=== PATIENT | female | born 1990 | race Caucasian/White ===

== ENCOUNTER 2016-07-03 09:08 | Inpatient (IN) | payer OTHER ==
--- NOTE | 2016-07-03 09:30 | ED ---
General Adult HPI - General Chief complaint: Psychiatric Symptoms Stated complaint: Mental Health Time Seen by Provider: 07/03/16 09:23 Source: patient, RN notes reviewed Mode of arrival: ambulatory Limitations: no limitations - History of Present Illness Initial comments: Patient is a 25-year-old female with significant past medical history for depression, who presents emergency room today with chief complaint of feeling increased depression not when he got bent. 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 Patient also admits that she's began having thoughts of hurting herself and possible suicide. She states she was thinking of who her son should go to live with if she was no longer here. She does admit that her medication was changed proximal year ago. She states she feels like it's been a steady decline on this medication. She denies any other complaints or symptoms currently. Patient denies any recent fever, chills, shortness of breath, chest pain, back pain, abdominal pain, nausea or vomiting, numbness or tingling, dysuria or hematuria, constipation or diarrhea, headaches or visual changes, or any other complaints. - Related Data Home Medications Medication Instructions Recorded Confirmed Hydrochlorothiazide [Hydrodiuril] 12.5 mg PO HS 06/28/14 07/03/16 Loratadine [Claritin] 10 mg PO HS 06/28/14 07/03/16 Azurette 1 tab PO HS 10/20/14 07/03/16 Sertraline [Zoloft] 50 mg PO HS 01/20/15 07/03/16 Acyclovir [Zovirax] 800 mg PO HS 02/21/15 07/03/16 Multivitamins, Thera [Multivitamin] 1 tab PO HS 03/31/15 07/03/16 Omeprazole [PriLOSEC] 20 mg PO HS 07/03/16 07/03/16 Previous Rx's Medication Instructions Recorded Ondansetron Odt [Zofran ODT] 4 mg PO Q8HR PRN #20 tab 03/01/15 Allergies Allergy/AdvReac Type Severity Reaction Status Date / Time diphenhydramine HCl Allergy anxiety Verified 07/03/16 10:43 [From Benadryl] cats Allergy Unknown Uncoded 07/03/16 09:16 environmental Allergy Unknown Uncoded 07/03/16 09:16 Review of Systems ROS Statement: Those systems with pertinent positive or pertinent negative responses have been documented in the HPI. ROS Other: All systems not noted in ROS Statement are negative. Past Medical History Past Medical History: Asthma, Hyperlipidemia, Hypertension Additional Past Medical History / Comment(s): pancreatitis History of Any Multi-Drug Resistant Organisms: None Reported Past Surgical History: Adenoidectomy, Bariatric Surgery, Section, Cholecystectomy Additional Past Surgical History / Comment(s): left ovary removed, sleeve gastrectomy 02/28/15 Past Psychological History: Anxiety, Depression Smoking Status: Former smoker Past Alcohol Use History: Occasional Past Drug Use History: None Reported General Exam - General Exam Comments Initial Comments: General: The patient is awake and alert, in no distress, and does not appear acutely ill. Eye: Pupils are equal, round and reactive to light, extra-ocular movements are intact. No nystagmus. There is normal conjunctiva bilaterally. No signs of icterus. Ears, nose, mouth and throat: There are moist mucous membranes and no oral lesions. Neck: The neck is supple, there is no tenderness or JVD. Cardiovascular: There is a regular rate and rhythm. No murmur, rub or gallop is appreciated. Respiratory: Lungs are clear to auscultation, respirations are non-labored, breath sounds are equal. No wheezes, stridor, rales, or rhonchi. Musculoskeletal: Normal ROM, no tenderness. Strength 5/5. Sensation intact. Pulses equal bilaterally 2+. Neurological: A&O x 3. CN II-XII intact, There are no obvious motor or sensory deficits. Coordination appears grossly intact. Speech is normal. Skin: Skin is warm and dry and no rashes or lesions are noted. Psychiatric: Cooperative. Depressed affect. Limitations: no limitations Course Vital Signs 07/03/16 09:10 Temperature 98.3 F Pulse Rate 70 Respiratory 14 Rate Blood Pressure 142/83 O2 Sat by Pulse 99 Oximetry Medical Decision Making - Medical Decision Making Patient seen here in the emergency room by [facility] and they've recommended admission. - Lab Data Lab Results 07/03/16 Range/Units 09:40 Urine Opiates Screen Not Detected (NotDetected) Ur Oxycodone Screen Not Detected (NotDetected) Urine Methadone Screen Not Detected (NotDetected) Ur Propoxyphene Screen Not Detected (NotDetected) Ur Barbiturates Screen Not Detected (NotDetected) U Tricyclic Antidepress Not Detected (NotDetected) Ur Phencyclidine Scrn Not Detected (NotDetected) Ur Amphetamines Screen Not Detected (NotDetected) U Methamphetamines Scrn Not Detected (NotDetected) U Benzodiazepines Scrn Detected H (NotDetected) Urine Cocaine Screen Not Detected (NotDetected) U Marijuana (THC) Screen Not Detected (NotDetected) Disposition Clinical Impression: Suicidal ideation Disposition: TRANSFER TO PSYCH HOSP/UNIT
[2016-07-03] MEDS ORDERED: MAGNESIUM HYDROXIDE 2,400 MG/10 ML CUP PO PRN (12:19)
[2016-07-03] MEDS ORDERED: MAG HYDROX/AL HYDROX/SIMETH 30 ML CUP PO PRN (12:19)
[2016-07-03 15:08] VITALS: BMI 32.8
[2016-07-03] MEDS: ACETAMINOPHEN TAB 325 MG TAB PO PRN (18:43)
[2016-07-03] MEDS: PANTOPRAZOLE 40 MG TABLET PO SCH (20:47)
[2016-07-03] MEDS: HYDROCHLOROTHIAZIDE 12.5 MG CAP PO SCH (20:47)
[2016-07-03] MEDS: MULTIVITAMINS, THERA 1 EACH TAB PO SCH (20:47)
[2016-07-03] MEDS: LORATADINE 10 MG TAB PO SCH (22:04)
[2016-07-04] MEDS: ACETAMINOPHEN TAB 325 MG TAB PO PRN ×2 (00:09→16:28)
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
[2016-07-04 10:06] LABS: Basophils % (A) 1 %; CHCM 32.6; Eosinophils # (A) 0.2 k/uL (0-0.7); Eosinophils % (A) 4 %; HCT 35.2 % (34.0-46.0); HDW 2.78; HGB 11.5 gm/dL (11.4-16.0); Luc # (Auto) 0.08; Luc % (Auto) 2; Lymphocytes # (A) 1.6 k/uL (1.0-4.8); Lymphocytes % (A) 46 %; MCH 29.3 pg (25.0-35.0); MCHC 32.7 g/dL (31.0-37.0); MCV 89.5 fL (80.0-100.0); Mean Platelet Volume 6.6; Monocytes # (A) 0.2 k/uL (0-1.0); Monocytes % (A) 6 %; Neutrophils # (A) 1.4 k/uL (1.3-7.7); Neutrophils % (A) 40 %; RBC 3.93 m/uL (3.80-5.40); RDW 13.6 % (11.5-15.5); WBC 3.4 k/uL (3.8-10.6); WBC (Perox) 3.54
--- NOTE | 2016-07-04 10:41 | CONS ---
DATE OF CONSULTATION: CHIEF COMPLAINT: Depression. HISTORY OF PRESENT ILLNESS: Ms. Agustin is a 25-year-old female with a known history of depression since age 13, and history of gastric sleeve surgery and alcohol abuse, admitted to the hospital with chief complaints of feeling increased depression. Reason for consultation, medical management of depression, alcohol abuse and other medical issues. Apparently, the patient has been very depressed that her son is going to get cut in Social Security as the patient is working full-time at this time. She began thoughts of having hurting herself and possible suicide. The patient does not have any plan. Patient has been taking Zoloft for several years and she says that this does not work anymore. Patient also had gastric sleeve surgery about a year ago and she is also concerned that she did not lose enough weight as she thought prior to that. Otherwise, patient denied any complaints of chest pain or short of breath. No recent illnesses. The patient did have nausea, no episode of emesis this morning. Otherwise, denied any complaints of recent illnesses or sick contacts at home. No recent travel. REVIEW OF SYSTEMS: CONSTITUTIONAL: No fever. No chills. No weakness. RESPIRATORY: No cough or sputum production. No short of breath. CARDIOVASCULAR: No chest pain or short of breath. No leg swelling. ABDOMEN: Patient does have nausea and one episode of vomiting. No abdominal pain. No diarrhea. GENITOURINARY: No dysuria. No hematuria. ENDOCRINE: Negative. PSYCHIATRIC: Depressed. SKIN: Negative. All other 14-point review of systems negative except as above. PAST MEDICAL HISTORY: 1. Hypertension. 2. Depression. 3. Hyperlipidemia. 4. History of asthma. 5. Previous history of smoking, quit him in . 6. Alcohol abuse on a daily basis/every other night. 7. History of gastric surgery. 8. History of pancreatitis. PAST SURGICAL HISTORY: Adenoidectomy, gastric sleeve surgery, section, cholecystectomy. PSYCHOSOCIAL HISTORY: Anxiety and depression. SOCIAL HISTORY: The patient is a former smoker; quit smoking in 2009. Patient has been drinking every other night recently lasting about the night before. Denied any marijuana. Denied any drugs or IVDU. Allergies include: BENADRYL, CATS and ENVIRONMENTAL. Home Medication: 1. ( ) . 2. Omeprazole. 3. Multivitamin. 4. Acyclovir. 5. Zoloft. 6. Azurette. 7. Loratadine. 8. Hydrochlorothiazide. PHYSICAL EXAMINATION: A 25-year-old female lying in the bed. Awake, alert and oriented x3. Appears to be in no apparent distress. VITALS: Blood pressure is 132/75, pulse is 74, respiration 20, temperature afebrile, pulse ox 94% on room air. HEENT: Atraumatic, normocephalic. Neck is supple. No JVD. CVS EXAM: S1, S2 heard. No murmurs, no gallop. LUNGS: Bilateral air entry is present. No wheeze, no crackles. ABDOMEN: Soft, obese. Bowel sounds are present. No palpable organomegaly. SYSTEM ADMIN: Awake, alert, oriented x3. No focal deficits. EXTREMITIES: No edema. Pulses palpable bilaterally. No clubbing or cyanosis. PSYCHIATRIC: Cooperative, seems depressed with teary eyes at times. LABORATORY DATA: Not available at this time. UDS is positive for benzodiazepines. IMPRESSION: 1. Depression with suicidal ideation. 2. Asthma, stable at this time. Continue with albuterol breathing treatments p.r.n. 3. Hypertension. Blood pressure is controlled now. Continue with hydrochlorothiazide. 4. Nausea and vomiting, possible alcoholic gastritis, improved at this time. Continue to monitor closely. 5. Monitor for alcohol withdrawal symptoms. 6. Anxiety and depression history. 7. History of pancreatitis. 8. Hyperlipidemia. 9. Previous history of gastric sleeve surgery. 10. Obesity with body mass index of 32.9. DISCUSSION AND PLAN: The patient will be continued on home medications. Continue the Protonix and multivitamins and Thiamine will be added. Continue with hydrochlorothiazide for blood pressure. Continue with the antidepressant medications as per psychiatry recommendations. Will continue the current management. DVT prophylaxis. Patient is currently ambulating. Will continue the current management and further recommendations based on the clinical course.
[2016-07-04 10:48] LABS: ALT 18 U/L (9-52); AST 15 U/L (14-36); Alkaline Phosphatase 36 U/L (38-126); Anion Gap 9 mmol/L; Blood Urea Nitrogen 9 mg/dL (7-17); Calcium 9.2 mg/dL (8.4-10.2); Carbon Dioxide 26 mmol/L (22-30); Chloride 104 mmol/L (98-107); Glucose 97 mg/dL (74-99); Non-African American GFR(MDRD) >60 (>60 ml/min/1.73 sqM); Potassium 3.7 mmol/L (3.5-5.1); Sodium 139 mmol/L (137-145); Total Bilirubin 0.7 mg/dL (0.2-1.3); Total Protein 6.9 g/dL (6.3-8.2)
[2016-07-04] MEDS: THIAMINE 100 MG TAB PO SCH (13:02)
[2016-07-04] MEDS: ACYCLOVIR 800 MG TAB PO SCH (20:24)
[2016-07-04] MEDS: LORATADINE 10 MG TAB PO SCH (20:25)
[2016-07-04] MEDS: MULTIVITAMINS, THERA 1 EACH TAB PO SCH (20:25)
[2016-07-04] MEDS: PANTOPRAZOLE 40 MG TABLET PO SCH (20:25)
[2016-07-04] MEDS: MIRTAZAPINE 15 MG TAB PO SCH (20:25)
[2016-07-04] MEDS: HYDROCHLOROTHIAZIDE 12.5 MG CAP PO SCH (20:25)
[2016-07-05] MEDS: ACETAMINOPHEN TAB 325 MG TAB PO PRN (09:55)
[2016-07-05] MEDS: THIAMINE 100 MG TAB PO SCH (12:59)
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
[2016-07-05] MEDS: LORATADINE 10 MG TAB PO SCH (20:49)
[2016-07-05] MEDS: PANTOPRAZOLE 40 MG TABLET PO SCH (20:49)
[2016-07-05] MEDS: ACYCLOVIR 800 MG TAB PO SCH (20:49)
[2016-07-05] MEDS: HYDROCHLOROTHIAZIDE 12.5 MG CAP PO SCH (20:50)
[2016-07-05] MEDS: MIRTAZAPINE 15 MG TAB PO SCH (20:50)
[2016-07-05] MEDS: MULTIVITAMINS, THERA 1 EACH TAB PO SCH (20:50)
[2016-07-05] MEDS: LORazepam 1 MG TAB PO PRN (22:09)
[2016-07-06] MEDS: THIAMINE 100 MG TAB PO SCH (13:04)
--- NOTE | 2016-07-06 14:13 | P.PN ---
Progress Note - Text CLINICAL PROBLEMS: Major depressive disorder recurrent severe without psychotic features 24 HOUR EVENTS: She attended by most therapeutic groups and activities. She posed no management problem and displayed no episodes of behavioral dyscontrol or self-harm. She does not socialize with staff or peers outside of groups. She spends her free time in her room. EXAMINATION: She presented as a casually groomed moderately obese 25-year-old single female. She was pleasant on approach and made eye contact. She had a depressed and depressed facial expression. She cried intermittently during interview. She reported less sedation this morning and agreed to continue with the titration of mirtazapine. She showed psychomotor retardation and no abnormal involuntary movements. Her speech was spontaneous with decreased rate , rhythm and volume. Her affect was depressed and not reactive. She expressed her distress over her situation where her family does like her girlfriend, her girlfriend complains to her that her family wants and a breakup and her desire to continue their relationship. She also talked about her weight and self-image. She flatly stated that she hates herself and is disgusted by her appearance. She does not perceive her 90 pound weight loss as a success. She wishes an ideal weight of "150-160 pounds" where she is slender and athletic. Her current weight is a same as it was when she was in her teens. She described thoughts of suicide but denied intent or plan. She continues to feel hopeless, helpless and worthless. She ruminated about her relationship problems. She did not express ideas reference, paranoid ideation or delusional thinking. Her thinking was coherent, organized and goal directed. She denied hallucinations and did not appear to be responding to internal stimuli. PERTINENT DATA: She slept 4 hours last night ASSESSMENT: She continues to have signs and symptoms of depression. The morning sedation from mirtazapine is improved and she consented to continue treatment with an increased dose. She has ongoing issues with her family and her self-image. PLAN: Continue inpatient hospitalization due to severe depression and suicidal ideation. Continue suicide precautions with 15 minute checks. Increase mirtazapine 30 mg at bedtime and continue to titrate according to clinical response and tolerance. Consider augmenting the antidepressant with a second generation antipsychotic.. Encourage participation in therapeutic groups and activities. Evaluate clinical status response to treatment daily basis.
[2016-07-06] MEDS: LORATADINE 10 MG TAB PO SCH (21:26)
[2016-07-06] MEDS: MULTIVITAMINS, THERA 1 EACH TAB PO SCH (21:26)
[2016-07-06] MEDS: HYDROCHLOROTHIAZIDE 12.5 MG CAP PO SCH (21:26)
[2016-07-06] MEDS: ACYCLOVIR 800 MG TAB PO SCH (21:26)
[2016-07-06] MEDS: MIRTAZAPINE 15 MG TAB PO SCH (21:26)
[2016-07-06] MEDS: PANTOPRAZOLE 40 MG TABLET PO SCH (21:26)
[2016-07-06] MEDS: LORazepam 1 MG TAB PO PRN (22:45)
[2016-07-07] MEDS: THIAMINE 100 MG TAB PO SCH (12:54)
--- NOTE | 2016-07-07 16:09 | P.PN ---
Progress Note - Text SUBJECTIVE: Reviewed the medical record and interviewed Mr. Darby. She is a 25-year-old single female presented with depression and suicidal ideation. She complains of continued feelings depression and difficulty falling asleep. She also complained that she feels "neglected" and "very angry ... Like I want to punch something." When asked her why she may feel angry she replied that her mother did not call her and when she did speak to her mother she was angry and hung up. She is also unable to talk with her girlfriend yesterday. She wished to be discharged. We discussed treatment options and agreed to a trial of Abilify 5 mg in addition to the current dose of Remeron. She denied side effects to the increased dose of Remeron. OBJECTIVE: She presented as a disheveled appearing 25-year-old obese female who was pleasant on approach. She made limited eye contact but appeared to attend to interview. She had a depressed facial expression. She showed psychomotor retardation but no abnormal involuntary movements. Speech was not spontaneous and had decreased rate, rhythm and volume. Her affect was depressed and not reactive. She denied suicidal ideation or wishes. She expresses feelings of hopelessness and helplessness. She did not express ideas reference, paranoid ideation or delusions. Her thinking was abstract and associations were coherent and logical. She denied hallucinations and did not appear to be responding to internal stimuli. ASSESSMENT: She rates depressed but has no suicidal ideation. Overall she appears moderately mentally ill and minimally improved from admission. PLAN: Continue inpatient hospitalization. Continue suicide precautions with 15 minute checks. Continue Remeron 30 mg at bedtime and titrated according to clinical response and tolerance. Begin Abilify 5 mg daily for augmentation of Remeron. Family meeting scheduled for 07/08/2016. Encourage participation in therapeutic groups and activities. Evaluate clinical status response to treatment and treatment basis.
[2016-07-07] MEDS: ARIPiprazole 5 MG TAB PO SCH (16:16)
[2016-07-07] MEDS: MIRTAZAPINE 15 MG TAB PO SCH (20:28)
[2016-07-07] MEDS: ACYCLOVIR 800 MG TAB PO SCH (20:28)
[2016-07-07] MEDS: LORATADINE 10 MG TAB PO SCH (20:28)
[2016-07-07] MEDS: HYDROCHLOROTHIAZIDE 12.5 MG CAP PO SCH (20:28)
[2016-07-07] MEDS: PANTOPRAZOLE 40 MG TABLET PO SCH (20:28)
[2016-07-07] MEDS: MULTIVITAMINS, THERA 1 EACH TAB PO SCH (20:28)
[2016-07-07] MEDS: LORazepam 1 MG TAB PO PRN (20:30)
[2016-07-08] MEDS: AZURETTE PO SCH ×2 (00:18→00:19)
[2016-07-08] MEDS: ARIPiprazole 5 MG TAB PO SCH (09:52)
--- NOTE | 2016-07-08 12:01 | P.PN ---
Progress Note - Text SUBJECTIVE: I reviewed the medical record and interviewed Mr. Darby. She is a 25-year-old single female presented with depression and suicidal ideation. She stated that she feels much better today. She does not feel depressed, angry or anxious. She denied having thoughts of or suicide. She was unable to explain the reason why she felt so angry yesterday. She wishes to be discharged after the family meeting. Although she has her intake appointment at [facility] on July 18 she believes that she can reschedule for an earlier date. She denied side effects to Abilify. OBJECTIVE: She presented as a neatly but casually dressed 25-year-old female who was pleasant on approach. She made eye contact and attended to interview. She had a bright facial expression. She showed no abnormality of psychomotor activity and no abnormal involuntary movements. Her speech was spontaneous with normal rate, rhythm and volume. Her affect was blunted but bright and reactive. She denied suicidal ideation or wishes. She expresses feelings of hopelessness and helplessness. She did not express ideas reference, paranoid ideation or delusions. Her thinking was abstract and associations were coherent and logical. She denied hallucinations and did not appear to be responding to internal stimuli. ASSESSMENT: She appears much less depressed today than on prior encounters. Overall, she appears mildly mentally ill and very much improved from admission. PLAN: Continue Remeron 30 mg at bedtime and titrated according to clinical response and tolerance. Continue Abilify 5 mg daily for augmentation of Remeron. Consider discharge after the family meeting today. Encourage participation in therapeutic groups and activities. Evaluate clinical status response to treatment and treatment basis.
[2016-07-08] MEDS: THIAMINE 100 MG TAB PO SCH (12:09)
[2016-07-08] MEDS: LORazepam 1 MG TAB PO PRN ×2 (14:12→21:16)
[2016-07-08] MEDS ORDERED: AZURETTE PO SCH (21:00)
[2016-07-08] MEDS: MIRTAZAPINE 15 MG TAB PO SCH (21:13)
[2016-07-08] MEDS: MULTIVITAMINS, THERA 1 EACH TAB PO SCH (21:13)
[2016-07-08] MEDS: LORATADINE 10 MG TAB PO SCH (21:13)
[2016-07-08] MEDS: HYDROCHLOROTHIAZIDE 12.5 MG CAP PO SCH (21:13)
[2016-07-08] MEDS: ACYCLOVIR 800 MG TAB PO SCH (21:13)
[2016-07-08] MEDS: PANTOPRAZOLE 40 MG TABLET PO SCH (21:14)
[2016-07-09 06:09] VITALS: BP 104/64; PULSE 72; RESP 16; TEMP 98
[2016-07-09] MEDS: ARIPiprazole 5 MG TAB PO SCH (09:41)
[2016-07-09] MEDS: MULTIVITAMINS, THERA 1 EACH TAB PO SCH (12:39)
[2016-07-09] MEDS: THIAMINE 100 MG TAB PO SCH (12:40)
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
[2016-07-09] MEDS ORDERED: MIRTAZAPINE 45 MG TABLET PO SCH (21:00)
== END 2016-07-09 14:48 | disposition home or self-care (01) | DRG 885 ==
LOC: EC 09:08 → 3MHU 11:26
PROVIDERS: ADMIT Psychiatry & Neurology Psychiatry; ATTEND Psychiatry & Neurology Psychiatry
DX: F33.2 Major depressive disorder, recurrent severe without psychotic features (principal); R45.851 Suicidal ideations; I10 Essential (primary) hypertension; E78.5 Hyperlipidemia, unspecified; E66.9 Obesity, unspecified; F10.10 Alcohol abuse, uncomplicated; F41.9 Anxiety disorder, unspecified; J45.909 Unspecified asthma, uncomplicated; K21.9 Gastro-esophageal reflux disease without esophagitis; A60.00 Herpesviral infection of urogenital system, unspecified; K29.20 Alcoholic gastritis without bleeding; Z68.32 Body mass index [BMI] 32.0-32.9, adult; Z79.899 Other long term (current) drug therapy; Z87.891 Personal history of nicotine dependence; Z98.84 Bariatric surgery status; Z88.8 Allergy status to other drugs, medicaments and biological substances; Z59.9 Problem related to housing and economic circumstances, unspecified; Z81.8 Family history of other mental and behavioral disorders
CPT/HCPCS: 80053; 80306; 81025; 82075; 84443; 85025; 99285

== ENCOUNTER 2016-07-31 21:29 | Inpatient (IN) | payer OTHER ==
[2016-07-31] MEDS ORDERED: SODIUM CHLORIDE 0.9% 500 ML IV STA (21:38)
--- NOTE | 2016-07-31 21:40 | ED ---
Overdose HPI - General Stated Complaint: overdose Time Seen by Provider: 07/31/16 21:37 - History of Present Illness Initial Comments: Shouldn't is a 25-year-old woman who has long-standing history of depression and suicidal ideation. She presents tonight by EMS after having called 911 after taking an overdose of Seroquel. The patient states that her usual evening dose is 50 mg and tonight she took 550 mg. She also had been doing some cutting to the bilateral thigh area. The patient states that she had some worsening of her mood as was the anniversary of family members yesterday. Complaint: intentional overdose -: hour(s) Intent: suicide attempt How Overdose Was Discovered: called 911 - Related Data Home Medications Medication Instructions Recorded Confirmed Hydrochlorothiazide [Hydrodiuril] 12.5 mg PO DAILY 06/28/14 07/31/16 Azurette 1 tab PO DAILY 10/20/14 07/31/16 Acyclovir [Zovirax] 800 mg PO HS 02/21/15 07/31/16 Omeprazole [PriLOSEC] 20 mg PO DAILY 07/03/16 07/31/16 Mirtazapine [Remeron] 45 mg PO HS 07/31/16 07/31/16 QUEtiapine [SEROquel] 50 mg PO HS 07/31/16 07/31/16 Allergies Allergy/AdvReac Type Severity Reaction Status Date / Time cat dander Allergy Unknown Verified 07/31/16 23:01 diphenhydramine HCl Allergy anxiety Verified 07/03/16 14:59 [From Benadryl] environmental Allergy Unknown Uncoded 07/03/16 14:59 Review of Systems ROS Statement: Those systems with pertinent positive or pertinent negative responses have been documented in the HPI. ROS Other: All systems not noted in ROS Statement are negative. Constitutional: Denies: fever, chills Eyes: Denies: vision change Respiratory: Denies: cough, dyspnea Cardiovascular: Denies: chest pain, palpitations, syncope Gastrointestinal: Denies: abdominal pain, nausea, vomiting Genitourinary: Denies: dysuria, hematuria, abnormal menses Skin: Denies: rash Neurological: Denies: headache, weakness, numbness Psychiatric: Reports: anxiety, depression, suicidal thoughts. Denies: auditory hallucinations, visual hallucinations, homicidal thoughts Past Medical History Past Medical History: Asthma, Hyperlipidemia, Hypertension Additional Past Medical History / Comment(s): pancreatitis History of Any Multi-Drug Resistant Organisms: None Reported Past Surgical History: Adenoidectomy, Bariatric Surgery, Section, Cholecystectomy Additional Past Surgical History / Comment(s): left ovary removed, sleeve gastrectomy 02/28/15 Past Psychological History: Anxiety, Depression Smoking Status: Former smoker Past Alcohol Use History: Occasional Past Drug Use History: None Reported General Exam General appearance: alert, in no apparent distress, anxious, obese Head exam: Present: atraumatic, normocephalic Eye exam: Present: normal appearance. Absent: scleral icterus, conjunctival injection ENT exam: Present: normal oropharynx Respiratory exam: Present: normal lung sounds bilaterally. Absent: respiratory distress, wheezes, rales, rhonchi, stridor Cardiovascular Exam: Present: regular rate, normal rhythm, normal heart sounds. Absent: systolic murmur, diastolic murmur, rubs, gallop GI/Abdominal exam: Present: soft. Absent: distended, tenderness, guarding, rebound Extremities exam: Present: normal capillary refill Back exam: Present: normal inspection Neurological exam: Present: alert, oriented X3. Absent: motor sensory deficit Skin exam: Present: warm, dry, normal color, abrasion (There are multiple superficial lacerations and abrasions on of which penetrate the dermis, located on both legs, anterior aspect just proximal to the knees.). Absent: rash Course Vital Signs 07/31/16 07/31/16 07/31/16 21:34 22:10 23:46 Temperature 97.6 F Pulse Rate 101 H 97 100 Respiratory 18 18 18 Rate Blood Pressure 125/71 148/85 140/99 O2 Sat by Pulse 98 98 96 Oximetry Medical Decision Making - Lab Data Result diagrams: 07/31/16 21:36 07/31/16 21:36 Lab Results 07/31/16 07/31/16 07/31/16 Range/Units 21:36 21:36 21:36 WBC 4.8 (3.8-10.6) k/uL RBC 3.97 (3.80-5.40) m/uL Hgb 11.5 (11.4-16.0) gm/dL Hct 35.4 (34.0-46.0) % MCV 89.3 (80.0-100.0) fL MCH 29.1 (25.0-35.0) pg MCHC 32.6 (31.0-37.0) g/dL RDW 13.9 (11.5-15.5) % Plt Count 205 (150-450) k/uL Neutrophils % 53 % Lymphocytes % 38 % Monocytes % 4 % Eosinophils % 3 % Basophils % 1 % Neutrophils # 2.5 (1.3-7.7) k/uL Lymphocytes # 1.8 (1.0-4.8) k/uL Monocytes # 0.2 (0-1.0) k/uL Eosinophils # 0.1 (0-0.7) k/uL Basophils # 0.0 (0-0.2) k/uL Sodium 142 (137-145) mmol/L Potassium 3.9 (3.5-5.1) mmol/L Chloride 110 H (98-107) mmol/L Carbon Dioxide 22 (22-30) mmol/L Anion Gap 10 mmol/L BUN 15 (7-17) mg/dL Creatinine 0.70 (0.52-1.04) mg/dL Est GFR (MDRD) Af Amer >60 (>60 ml/min/1.73 sqM) Est GFR (MDRD) Non-Af >60 (>60 ml/min/1.73 sqM) Glucose 123 H (74-99) mg/dL Calcium 9.0 (8.4-10.2) mg/dL Total Bilirubin 0.3 (0.2-1.3) mg/dL AST 15 (14-36) U/L ALT 26 (9-52) U/L Alkaline Phosphatase 41 (38-126) U/L Total Protein 6.3 (6.3-8.2) g/dL Albumin 3.4 L (3.5-5.0) g/dL Urine HCG, Qual (Not Detectd) Salicylates <1.0 mg/dL Urine Opiates Screen Not Detected (NotDetected) Ur Oxycodone Screen Not Detected (NotDetected) Urine Methadone Screen Not Detected (NotDetected) Ur Propoxyphene Screen Not Detected (NotDetected) Acetaminophen <10.0 ug/mL Ur Barbiturates Screen Not Detected (NotDetected) U Tricyclic Antidepress Detected H (NotDetected) Ur Phencyclidine Scrn Not Detected (NotDetected) Ur Amphetamines Screen Not Detected (NotDetected) U Methamphetamines Scrn Not Detected (NotDetected) U Benzodiazepines Scrn Not Detected (NotDetected) Urine Cocaine Screen Not Detected (NotDetected) U Marijuana (THC) Screen Detected H (NotDetected) Serum Alcohol <10 mg/dL 07/31/16 Range/Units 21:36 WBC (3.8-10.6) k/uL RBC (3.80-5.40) m/uL Hgb (11.4-16.0) gm/dL Hct (34.0-46.0) % MCV (80.0-100.0) fL MCH (25.0-35.0) pg MCHC (31.0-37.0) g/dL RDW (11.5-15.5) % Plt Count (150-450) k/uL Neutrophils % % Lymphocytes % % Monocytes % % Eosinophils % % Basophils % % Neutrophils # (1.3-7.7) k/uL Lymphocytes # (1.0-4.8) k/uL Monocytes # (0-1.0) k/uL Eosinophils # (0-0.7) k/uL Basophils # (0-0.2) k/uL Sodium (137-145) mmol/L Potassium (3.5-5.1) mmol/L Chloride (98-107) mmol/L Carbon Dioxide (22-30) mmol/L Anion Gap mmol/L BUN (7-17) mg/dL Creatinine (0.52-1.04) mg/dL Est GFR (MDRD) Af Amer (>60 ml/min/1.73 sqM) Est GFR (MDRD) Non-Af (>60 ml/min/1.73 sqM) Glucose (74-99) mg/dL Calcium (8.4-10.2) mg/dL Total Bilirubin (0.2-1.3) mg/dL AST (14-36) U/L ALT (9-52) U/L Alkaline Phosphatase (38-126) U/L Total Protein (6.3-8.2) g/dL Albumin (3.5-5.0) g/dL Urine HCG, Qual Not Detected (Not Detectd) Salicylates mg/dL Urine Opiates Screen (NotDetected) Ur Oxycodone Screen (NotDetected) Urine Methadone Screen (NotDetected) Ur Propoxyphene Screen (NotDetected) Acetaminophen ug/mL Ur Barbiturates Screen (NotDetected) U Tricyclic Antidepress (NotDetected) Ur Phencyclidine Scrn (NotDetected) Ur Amphetamines Screen (NotDetected) U Methamphetamines Scrn (NotDetected) U Benzodiazepines Scrn (NotDetected) Urine Cocaine Screen (NotDetected) U Marijuana (THC) Screen (NotDetected) Serum Alcohol mg/dL - EKG Data -: EKG Interpreted by Ms EKG shows normal: sinus rhythm, axis (Normal), intervals (Normal), QRS complexes (Normal) Rate: tachycardia (Rate approximately 107 bpm) When compared to previous EKG there are: no significant change Interpretation: other (Q waves in leads 2, 3 and aVF consistent with possible old inferior infarct. EKG is similar to that from October 2014) Disposition Clinical Impression: Suicidal ideation, Mood disorder Disposition: ADMITTED IP TO THIS [facility] Condition: Fair
[2016-07-31] MEDS ORDERED: DIPH,PERTUS(ACELL)TETVAC-LF 0.5 ML VIAL IM ONE (22:08)
[2016-07-31 22:14] LABS: Basophils % (A) 1 %; CH 29.7; CHCM 33.4; Eosinophils # (A) 0.1 k/uL (0-0.7); Eosinophils % (A) 3 %; HCT 35.4 % (34.0-46.0); HGB 11.5 gm/dL (11.4-16.0); Luc # (Auto) 0.11; Luc % (Auto) 2; Lymphocytes # (A) 1.8 k/uL (1.0-4.8); Lymphocytes % (A) 38 %; MCH 29.1 pg (25.0-35.0); MCHC 32.6 g/dL (31.0-37.0); MCV 89.3 fL (80.0-100.0); Monocytes # (A) 0.2 k/uL (0-1.0); Monocytes % (A) 4 %; Neutrophils # (A) 2.5 k/uL (1.3-7.7); Neutrophils % (A) 53 %; RBC 3.97 m/uL (3.80-5.40); RDW 13.9 % (11.5-15.5); WBC 4.8 k/uL (3.8-10.6); WBC (Perox) 5.18
[2016-07-31 22:24] LABS: ALT 26 U/L (9-52); AST 15 U/L (14-36); Acetaminophen <10.0 ug/mL; Alcohol <10 mg/dL; Alkaline Phosphatase 41 U/L (38-126); Anion Gap 10 mmol/L; Blood Urea Nitrogen 15 mg/dL (7-17); Carbon Dioxide 22 mmol/L (22-30); Chloride 110 mmol/L (98-107); Glucose 123 mg/dL (74-99); Non-African American GFR(MDRD) >60 (>60 ml/min/1.73 sqM); Potassium 3.9 mmol/L (3.5-5.1); Salicylate <1.0 mg/dL; Sodium 142 mmol/L (137-145); Total Bilirubin 0.3 mg/dL (0.2-1.3); Total Protein 6.3 g/dL (6.3-8.2)
[2016-08-01] MEDS ORDERED: LORazepam 1 MG TAB PO STA (00:49)
[2016-08-01] MEDS ORDERED: ACETAMINOPHEN TAB 325 MG TAB PO PRN (02:10)
[2016-08-01] MEDS ORDERED: MAGNESIUM HYDROXIDE 2,400 MG/10 ML CUP PO PRN (02:10)
[2016-08-01] MEDS ORDERED: MAG HYDROX/AL HYDROX/SIMETH 30 ML CUP PO PRN (02:10)
[2016-08-01] MEDS ORDERED: HYDROCHLOROTHIAZIDE 12.5 MG CAP PO SCH (09:00)
[2016-08-01] MEDS: PANTOPRAZOLE 40 MG TABLET PO SCH (09:10)
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
[2016-08-01 12:40] VITALS: BMI 32.5
[2016-08-01] MEDS: ARIPiprazole 5 MG TAB PO SCH (14:57)
--- NOTE | 2016-08-01 16:40 | CONS ---
DATE OF CONSULTATION: Patient is a very pleasant 25-year-old female admitted to psychiatric floor for management of her psychiatric issues which is depression and suicidal ideation and suicide attempt. Patient denied any fever, chills. Patient denied any nausea, vomiting, abdominal pain. Patient is on hydrochlorothiazide, only takes for water retention which I discontinued. Patient is also on acyclovir without any active herpetic lesions. Patient is clinically doing well. REVIEW OF SYSTEMS: CONSTITUTIONAL: No fever, no malaise, no fatigue. HEENT: No recent visual problems or hearing problems. Denied any sore throat. CARDIOVASCULAR: No chest pain, orthopnea, PND, no palpitations, no syncope. PULMONARY: No shortness of breath, no cough, no hemoptysis. GASTROINTESTINAL: No diarrhea, no nausea, no vomiting, no abdominal pain. Normoactive bowel sounds. NEUROLOGICAL: No headaches, no weakness, no numbness. HEMATOLOGICAL: Denies any bleeding or petechiae. GENITOURINARY: Denies any burning micturition, frequency, or urgency. MUSCULOSKELETAL/RHEUMATOLOGICAL: Denies any joint pain, swelling, or any muscle pain. ENDOCRINE: Denies any polyuria or polydipsia. Psychiatric defer to the psychiatric services. The rest of the 14 point review of systems is negative. Past medical history significant for asthma in childhood. Patient does not have any recent exacerbation, hyperlipidemia, hypertension, history of pancreatitis in the past, adenoidectomy, bariatric surgery, section, cholecystectomy in the past. Depression. SOCIAL HISTORY: The patient used to be a former smoker. Occasional alcohol use. Denies any IV drug use or any recreational drug use. Home medications include: 1. Seroquel. 2. ( ). 3. Omeprazole. 4. Hydrochlorothiazide. 5. Acyclovir 800 mg bedtime. PHYSICAL EXAMINATION: VITAL SIGNS: Temperature 97.5, pulse of 96. Patient apparently was tachycardic earlier, probably because of anxiety and patient is not tachycardic when I evaluated the patient. GENERAL: The patient is alert and oriented x3, not in any acute distress. Well developed, well nourished. HEENT: Pupils are round and equally reacting to light. EOMI. No scleral icterus. No conjunctival pallor. Normocephalic, atraumatic. No pharyngeal erythema. No thyromegaly. CARDIOVASCULAR: S1 and S2 present. No murmurs, rubs, or gallops. PULMONARY: Chest is clear to auscultation, no wheezing or crackles. ABDOMEN: Soft, nontender, nondistended, normoactive bowel sounds. No palpable organomegaly. MUSCULOSKELETAL: No joint swelling or deformity. EXTREMITIES: No cyanosis, clubbing, or pedal edema. NEUROLOGICAL: Gross neurological examination did not reveal any focal deficits. SKIN: No rashes. Psychiatric exam deferred to psychiatric services. LABORATORY DATA: CBC, CMP: No significant abnormality was appreciated. ASSESSMENT AND PLAN: 1. Depression, management as per primary service. 2. Monitoring for hypertension. I do not believe patient is hypertensive at this point of time. Hydrochlorothiazide will be discontinued. Will recommend to monitor the blood pressures. 3. Gastroesophageal disease for which patient can continue Prilosec. 4. History of asthma without any acute exacerbation. Patient is not smoking anymore. No further intervention is necessary. If needed as we can use as needed Habitrol although patient is not wheezing at this point of time. 5. Marijuana use. Counseling was provided. Although the patient denied any recreational drug use to me. The patient denied any IV drug. Thank you for letting me participate in this patient's care. We will sign off at this point of time. Patient will need to follow with Dr. Gonzalez upon discharge in about a week.
[2016-08-01] MEDS: MIRTAZAPINE 45 MG TABLET PO SCH (20:53)
[2016-08-01] MEDS: AZURETTE PO SCH (20:53)
[2016-08-01] MEDS: ACYCLOVIR 800 MG TAB PO SCH (20:53)
[2016-08-01] MEDS: LORazepam 1 MG TAB PO PRN (20:54)
[2016-08-02] MEDS: AZURETTE PO SCH (09:19)
[2016-08-02] MEDS: PANTOPRAZOLE 40 MG TABLET PO SCH (09:20)
[2016-08-02] MEDS: ARIPiprazole 5 MG TAB PO SCH (09:20)
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
[2016-08-02] MEDS: MIRTAZAPINE 45 MG TABLET PO SCH (21:42)
[2016-08-02] MEDS: ACYCLOVIR 800 MG TAB PO SCH (21:42)
[2016-08-02] MEDS: LORazepam 1 MG TAB PO PRN (21:44)
[2016-08-03 06:34] VITALS: BP 109/73; PULSE 80; RESP 16; TEMP 98
[2016-08-03] MEDS: AZURETTE PO SCH (08:41)
[2016-08-03] MEDS: ARIPiprazole 5 MG TAB PO SCH (08:41)
[2016-08-03] MEDS: PANTOPRAZOLE 40 MG TABLET PO SCH (08:41)
--- NOTE | 2016-08-03 12:02 | P.DS ---
Providers Date of admission: 08/01/16 01:51 Expected date of discharge: 08/03/16 Attending physician: Jacqueline Perez MD Consults: 08/01/16 02:10 Consult Physician Routine Consulting Provider: Edgar Lyles Consult Reason/Comments: H & P and medical follow up Do you want consulting provider notified?: Yes, Notify in am Primary care physician: Carlos Shanks Hospital Course: ADMISSION HISTORY: Patient was admitted on a voluntary after making a suicide attempt overdosing on Seroquel 550 mg. Patient had been on our unit one month earlier she had been placed on Abilify and Remeron and had responded well to it but upon discharge discovered that her insurance company would not pay for Abilify and instead was given Seroquel. Patient did not respond well to Seroquel had what sounds like restless leg. Patient became increasingly depressed over the month , she broke up with her partner 2 days prior to admission, and then overdosed on the day of admission. . Patient states that she just became overwhelmed with everything, has not returned to work since her admission last month feeling that her ability to recall and maintain concentration is impaired. 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 She endorsed depressed mood, anhedonia, worthlessness, hopelessness, poor self- esteem, concentration. She is also reporting suicidal ideation, with a plan to overdose as she are ready did, last night. HOSPITAL COURSE: Patient gave history of several anti-depressants being used in the past with one when she was a teenager, Effexor, that may have been the first and only either manic or hypomanic episode, when she became homicidal towards her father. Otherwise she has been primarily depressed.. She was noted to have psychomotor retardation with a flat affect. She reported lessening of the suicidal ideation but it was still present yesterday, but today she denies suicidal ideation and requests to be discharged. 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 Discussed with nursing home social worker and the family meeting will take place today and mother has made statements that she feels comfortable with her daughter being discharged today. Worked with the insurance company to have Abilify approved. MENTAL STATUS EXAM: Patient alert and oriented 3, good eye contact, fair groomed in street clothing. Psychomotor slowing. Speech low volume, monotone slow rate and normal production. Coherent, logical and goal directed thought process. No ERAN, no FOI. [No TB/TW/ TI] Denied auditory and visual hallucinations. Denied paranoid ideation, delusions or IOR. Memory [grossly intact] Cognition average Unable to do serial 7s, did not try Mood [dysphoric], affect and constricted congruent with mood. Denies suicidal ideation, wish to be , denies homicidal ideation. Insight partial; Judgment grossly intact for treatment purposes ADMISSION DIAGNOSES: Suicide attempt Suicidal ideation Bipolar disorder type II, depressed. DISCHARGE DIAGNOSES: Bipolar disorder type II, depressed Suicide ideation, resolved PLAN: Discharge today. Continue Abilify 5 mg daily Continue Remeron at bedtime. Patient reported that she has a psychiatric appointment on Saturday that her mother has arranged. Patient also states that she has made contact with a counselor who she can call at any time which is the plan in case she has suicidal ideation again. Pertinent Studies: none Procedures: none Plan - Discharge Summary New Discharge Prescriptions: New ARIPiprazole [Abilify] 5 mg PO DAILY #7 tab Continue Hydrochlorothiazide [Hydrodiuril] 12.5 mg PO DAILY Azurette 1 tab PO DAILY Acyclovir [Zovirax] 800 mg PO HS Omeprazole [PriLOSEC] 20 mg PO DAILY Mirtazapine [Remeron] 45 mg PO HS Discontinued QUEtiapine [SEROquel] 50 mg PO HS Discharge Medication List Hydrochlorothiazide [Hydrodiuril] 12.5 mg PO DAILY 06/28/14 [History] Azurette 1 tab PO DAILY 10/20/14 [History] Acyclovir [Zovirax] 800 mg PO HS 02/21/15 [History] Omeprazole [PriLOSEC] 20 mg PO DAILY 07/03/16 [History] Mirtazapine [Remeron] 45 mg PO HS 07/31/16 [History] ARIPiprazole [Abilify] 5 mg PO DAILY #7 tab 08/03/16 [Rx] Follow up Appointment(s)/Referral(s): Rimma Gonzalez MD [Primary Care Provider] - 1-2 days Discharge Disposition: HOME SELF-CARE
== END 2016-08-03 13:18 | disposition home or self-care (01) | DRG 885 ==
LOC: EC 21:29 → 3MHU 08-01 01:51
PROVIDERS: ADMIT Psychiatry & Neurology Addiction Medicine; ATTEND Psychiatry & Neurology Addiction Medicine
DX: F31.81 Bipolar II disorder (principal); I10 Essential (primary) hypertension; E78.5 Hyperlipidemia, unspecified; F12.90 Cannabis use, unspecified, uncomplicated; G47.00 Insomnia, unspecified; J45.909 Unspecified asthma, uncomplicated; K21.9 Gastro-esophageal reflux disease without esophagitis; Z91.5 Personal history of self-harm; Z87.891 Personal history of nicotine dependence; Z81.8 Family history of other mental and behavioral disorders; Z79.899 Other long term (current) drug therapy; Z98.84 Bariatric surgery status; A60.00 Herpesviral infection of urogenital system, unspecified
CPT/HCPCS: 36415; 80053; 80306; 80320; 81025; 82075; 83520; 84443; 85025; 90471; 90715; 93005; 99285

== ENCOUNTER 2016-11-20 08:12 | Inpatient (IN) | payer OTHER ==
--- NOTE | 2016-11-20 08:46 | ED ---
General Adult HPI - General Chief complaint: Psychiatric Symptoms Stated complaint: Mental Health Time Seen by Provider: 11/20/16 08:26 Source: patient, RN notes reviewed Mode of arrival: ambulatory Limitations: no limitations - History of Present Illness Initial comments: 26-year-old female who presents emergency room today with chief complaint of needing a mental health evaluation. She does not that she was having a appointment with her psychiatrist later today for medication evaluation. She states having thoughts of hurting herself over the last 2 weeks. She has mid to having suicidal thoughts. Denies any specific plan. Patient does admit that she's been self cutting to her upper legs. Wounds is superficial. She states she has dullness in the past. Patient denies any homicidal thoughts or plans. Denies any visual or auditory hallucinations. Denies any other complaints. Patient denies any recent fever, chills, shortness of breath, chest pain, back pain, abdominal pain, nausea or vomiting, numbness or tingling, dysuria or hematuria, constipation or diarrhea, headaches or visual changes, or any other complaints. - Related Data Home Medications Medication Instructions Recorded Confirmed Hydrochlorothiazide [Hydrodiuril] 12.5 mg PO HS 06/28/14 11/20/16 Azurette 1 tab PO HS 10/20/14 11/20/16 Acyclovir [Zovirax] 800 mg PO HS 02/21/15 11/20/16 Omeprazole [PriLOSEC] 20 mg PO HS 07/03/16 11/20/16 Escitalopram [Lexapro] 20 mg PO HS 11/20/16 11/20/16 risperiDONE 1 mg PO HS 11/20/16 11/20/16 Allergies Allergy/AdvReac Type Severity Reaction Status Date / Time cat dander Allergy Unknown Verified 11/20/16 08:37 diphenhydramine HCl AdvReac anxiety Verified 11/20/16 08:37 [From Benadryl] environmental Allergy Unknown Uncoded 11/20/16 08:18 Review of Systems ROS Statement: Those systems with pertinent positive or pertinent negative responses have been documented in the HPI. ROS Other: All systems not noted in ROS Statement are negative. Past Medical History Past Medical History: Asthma, Hyperlipidemia, Hypertension Additional Past Medical History / Comment(s): pancreatitis History of Any Multi-Drug Resistant Organisms: None Reported Past Surgical History: Adenoidectomy, Bariatric Surgery, Section, Cholecystectomy Additional Past Surgical History / Comment(s): left ovary removed, sleeve gastrectomy 02/28/15 Past Anesthesia/Blood Transfusion Reactions: No Reported Reaction Past Psychological History: Anxiety, Depression Smoking Status: Former smoker Past Alcohol Use History: Occasional Past Drug Use History: Marijuana General Exam - General Exam Comments Initial Comments: General: The patient is awake and alert, in no distress, and does not appear acutely ill. Eye: Pupils are equal, round and reactive to light, extra-ocular movements are intact. No nystagmus. There is normal conjunctiva bilaterally. No signs of icterus. Ears, nose, mouth and throat: There are moist mucous membranes and no oral lesions. Neck: The neck is supple, there is no tenderness or JVD. Cardiovascular: There is a regular rate and rhythm. No murmur, rub or gallop is appreciated. Respiratory: Lungs are clear to auscultation, respirations are non-labored, breath sounds are equal. No wheezes, stridor, rales, or rhonchi. Musculoskeletal: Normal ROM, no tenderness. Strength 5/5. Sensation intact. Pulses equal bilaterally 2+. Neurological: A&O x 3. CN II-XII intact, There are no obvious motor or sensory deficits. Coordination appears grossly intact. Speech is normal. Skin: Skin is warm and dry and no rashes or lesions are noted. Psychiatric: Cooperative, appropriate mood & affect, normal judgment. Limitations: no limitations Course Vital Signs 11/20/16 08:14 Temperature 97.8 F Pulse Rate 96 Respiratory 18 Rate Blood Pressure 133/83 O2 Sat by Pulse 98 Oximetry Medical Decision Making - Medical Decision Making Patient seen here in the emergency room by [facility]. They recommended admission. Patient is willing to sign herself in. - Lab Data Lab Results 11/20/16 11/20/16 Range/Units 08:43 08:43 Urine HCG, Qual Not Detected (Not Detectd) Urine Opiates Screen Not Detected (NotDetected) Ur Oxycodone Screen Not Detected (NotDetected) Urine Methadone Screen Not Detected (NotDetected) Ur Propoxyphene Screen Not Detected (NotDetected) Ur Barbiturates Screen Not Detected (NotDetected) U Tricyclic Antidepress Not Detected (NotDetected) Ur Phencyclidine Scrn Not Detected (NotDetected) Ur Amphetamines Screen Not Detected (NotDetected) U Methamphetamines Scrn Not Detected (NotDetected) U Benzodiazepines Scrn Detected H (NotDetected) Urine Cocaine Screen Not Detected (NotDetected) U Marijuana (THC) Screen Detected H (NotDetected) Disposition Clinical Impression: Suicidal ideation Disposition: TRANSFER TO PSYCH HOSP/UNIT Condition: Stable Referrals: Rimma Gonzalez MD [Primary Care Provider] - 1-2 days Time of Disposition: 10:26
[2016-11-20] MEDS ORDERED: ACETAMINOPHEN TAB 325 MG TAB PO PRN (11:08)
[2016-11-20] MEDS ORDERED: LORazepam 1 MG TAB PO PRN (11:08)
[2016-11-20] MEDS ORDERED: MAGNESIUM HYDROXIDE 2,400 MG/10 ML CUP PO PRN (11:08)
[2016-11-20] MEDS ORDERED: MAG HYDROX/AL HYDROX/SIMETH 30 ML CUP PO PRN (11:08)
--- NOTE | 2016-11-20 16:37 | P.CONS ---
History of Present Illness - Reason for Consult hypertension, medical clearance - History of Present Illness patient was admitted to psychiatric floor for psychiatric evaluation and suicidal ideations. Patient is clinically doing well denied any fever, chills, nausea, vomiting patient does occasionally use marijuana he is a is on hydrochlorothiazide just for peripheral edema without any problems at this time , we will obtain basic metabolic profile if there is any abnormality in the electrolytes or kidney function hydrochlorothiazide will be discontinued as it can be continued. Patient denied any fever chills, cough, shortness of breath. Patient was recently diagnosed with genital herpes for which patient is on acyclovir which will be continued Review of Systems REVIEW OF SYSTEMS: CONSTITUTIONAL: No fever, no malaise, no fatigue. HEENT: No recent visual problems or hearing problems. Denied any sore throat. CARDIOVASCULAR: No chest pain, orthopnea, PND, no palpitations, no syncope. PULMONARY: No shortness of breath, no cough, no hemoptysis. GASTROINTESTINAL: No diarrhea, no nausea, no vomiting, no abdominal pain. Normoactive bowel sounds. NEUROLOGICAL: No headaches, no weakness, no numbness. HEMATOLOGICAL: Denies any bleeding or petechiae. GENITOURINARY: Denies any burning micturition, frequency, or urgency. MUSCULOSKELETAL/RHEUMATOLOGICAL: Denies any joint pain, swelling, or any muscle pain. ENDOCRINE: Denies any polyuria or polydipsia. The rest of the 14-point review of systems is negative. Past Medical History Past Medical History: Asthma, GERD/Reflux, Hypertension Additional Past Medical History / Comment(s): Past HTN but not since weight loss , high triglycerides, pancreatitis, ascities, anemia, herpes simplex I. 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 Past Anesthesia/Blood Transfusion Reactions: No Reported Reaction Smoking Status: Former smoker - Past Family History Father Family Medical History: COPD, Hypertension Additional Family Medical History / Comment(s): Depression. Mother Family Medical History: Hypertension Medications and Allergies Home Medications Medication Instructions Recorded Confirmed Type Hydrochlorothiazide [Hydrodiuril] 12.5 mg PO HS 06/28/14 11/20/16 History Azurette 1 tab PO HS 10/20/14 11/20/16 History Acyclovir [Zovirax] 800 mg PO HS 02/21/15 11/20/16 History Omeprazole [PriLOSEC] 20 mg PO HS 07/03/16 11/20/16 History Escitalopram [Lexapro] 20 mg PO HS 11/20/16 11/20/16 History risperiDONE 1 mg PO HS 11/20/16 11/20/16 History Allergies Allergy/AdvReac Type Severity Reaction Status Date / Time cat dander Allergy Unknown Verified 11/20/16 08:37 diphenhydramine HCl AdvReac anxiety Verified 11/20/16 08:37 [From Benadryl] environmental Allergy Unknown Uncoded 11/20/16 08:18 Physical Exam Vitals: Vital Signs Temp Pulse Pulse Resp BP BP Pulse Ox 11/20/16 10:33 97.6 F 79 17 115/76 11/20/16 10:29 98.1 F 78 18 116/68 100 11/20/16 08:14 97.8 F 96 18 133/83 98 Intake and Output 11/20/16 11/20/16 11/20/16 06:59 14:59 22:59 Other: Weight 96.162 kg Patient Weight 11/21/16 06:59 Weight 96.162 kg PHYSICAL EXAMINATION: GENERAL: The patient is alert and oriented x3, not in any acute distress. Well developed, well nourished. HEENT: Pupils are round and equally reacting to light. EOMI. No scleral icterus. No conjunctival pallor. Normocephalic, atraumatic. No pharyngeal erythema. No thyromegaly. CARDIOVASCULAR: S1 and S2 present. No murmurs, rubs, or gallops. PULMONARY: Chest is clear to auscultation, no wheezing or crackles. ABDOMEN: Soft, nontender, nondistended, normoactive bowel sounds. No palpable organomegaly. MUSCULOSKELETAL: No joint swelling or deformity. EXTREMITIES: No cyanosis, clubbing, or pedal edema. NEUROLOGICAL: Gross neurological examination did not reveal any focal deficits. SKIN: No rashes. Results Labs: Abnormal Lab Results - Last 24 Hours (Table) 11/20/16 Range/Units 08:43 U Benzodiazepines Scrn Detected H (NotDetected) U Marijuana (THC) Screen Detected H (NotDetected) Assessment and Plan Plan: #1 gastroesophageal infectious disease #2 asthma without any acute exacerbation #3genital herpes for which patient will be continued on acyclovir #4 depression: Management as per primary service. We'll sign off at this point of time please call us back if needed
[2016-11-20] MEDS ORDERED: risperiDONE 1 MG TAB PO SCH (21:00)
[2016-11-20] MEDS ORDERED: AZURETTE PO SCH (21:00)
[2016-11-20] MEDS: ESCITALOPRAM 10 MG TAB PO SCH (21:34)
[2016-11-20] MEDS: PANTOPRAZOLE 40 MG TABLET PO SCH (21:34)
[2016-11-20] MEDS: HYDROCHLOROTHIAZIDE 12.5 MG CAP PO SCH (21:34)
[2016-11-20] MEDS: ACYCLOVIR 800 MG TAB PO SCH (21:34)
[2016-11-20] MEDS: AZURETTE PO SCH (22:06)
[2016-11-21 08:15] LABS: Basophils # (A) 0.1 k/uL (0-0.2); Basophils % (A) 1 %; CH 29.8; CHCM 33.4; Eosinophils # (A) 0.2 k/uL (0-0.7); Eosinophils % (A) 4 %; HCT 36.1 % (34.0-46.0); HDW 2.85; HGB 11.6 gm/dL (11.4-16.0); Luc # (Auto) 0.14; Luc % (Auto) 2; Lymphocytes # (A) 3.1 k/uL (1.0-4.8); Lymphocytes % (A) 55 %; MCH 28.8 pg (25.0-35.0); MCHC 32.1 g/dL (31.0-37.0); MCV 89.7 fL (80.0-100.0); Mean Platelet Volume 7.3; Monocytes # (A) 0.3 k/uL (0-1.0); Monocytes % (A) 6 %; Neutrophils # (A) 1.8 k/uL (1.3-7.7); Neutrophils % (A) 32 %; RBC 4.02 m/uL (3.80-5.40); RDW 14.1 % (11.5-15.5); WBC 5.7 k/uL (3.8-10.6); WBC (Perox) 5.68
[2016-11-21 08:29] LABS: ALT 28 U/L (9-52); AST 17 U/L (14-36); Alkaline Phosphatase 43 U/L (38-126); Anion Gap 9 mmol/L; Blood Urea Nitrogen 12 mg/dL (7-17); Calcium 9.1 mg/dL (8.4-10.2); Carbon Dioxide 25 mmol/L (22-30); Chloride 103 mmol/L (98-107); Cholesterol 182 mg/dL (<200); Glucose 78 mg/dL (74-99); HDL Cholesterol 65 mg/dL (40-60); Non-African American GFR(MDRD) >60 (>60 ml/min/1.73 sqM); Sodium 137 mmol/L (137-145); Total Bilirubin 0.3 mg/dL (0.2-1.3); Total Protein 6.6 g/dL (6.3-8.2)
[2016-11-21 08:54] LABS: Manual Review Performed
[2016-11-21 12:59] LABS: Hemoglobin A1C 5.1 % (4.2-6.1)
[2016-11-21 13:52] LABS: Appearance,Urine Cloudy (Clear); Bacteria,Urine Moderate /hpf; Bilirubin,Urine Negative (Negative); Glucose,Urine (UA) Negative (Negative); Ketones,Urine Negative (Negative); Leukocyte Esterase,Urine Small (Negative); Mucus,Urine Occasional /hpf; Nitrite,Urine Negative (Negative); PH, Urine 6.5 (5.0-8.0); Particle Count 11893; Protein,Urine Trace (Negative); RBC,Urine 1 /hpf (0-5); Specific Gravity,Urine 1.019 (1.001-1.035); Squamous Epithelial Cell,Urine 10 /hpf (0-4); UA Billing (MACRO vs. MICRO) MICRO; WBC,Urine 2 /hpf (0-5)
[2016-11-21] MEDS: AZURETTE PO SCH (20:56)
[2016-11-21] MEDS: PANTOPRAZOLE 40 MG TABLET PO SCH (20:57)
[2016-11-21] MEDS: HYDROCHLOROTHIAZIDE 12.5 MG CAP PO SCH (20:57)
[2016-11-21] MEDS: ACYCLOVIR 800 MG TAB PO SCH (20:57)
[2016-11-21] MEDS: ESCITALOPRAM 10 MG TAB PO SCH (20:57)
[2016-11-21] MEDS ORDERED: traZODone HCL 50 MG TAB PO SCH (21:00)
--- NOTE | 2016-11-21 23:50 | P.HP ---
Psychiatric H&P - . H&P Date: 11/21/16 History & Physical: Allergies Allergy/AdvReac Type Severity Reaction Status Date / Time cat dander Allergy Unknown Verified 11/20/16 08:37 diphehydramine HCl AdvReac anxiety Verified 11/20/16 08:37 [From Benadryl] environmental Allergy Unknown Uncoded 11/20/16 08:18 Vital Signs Temp 98.2 F 11/21/16 07:05 Pulse 70 11/21/16 07:05 Resp 18 11/21/16 07:05 BP 102/57 11/21/16 07:05 Pulse Ox 100 11/20/16 10:29 Intake & Output 11/20/16 11/21/16 11/21/16 18:59 06:59 18:59 Weight 96.162 kg Laboratory Last Values WBC 5.7 k/uL (3.8-10.6) 11/21/16 07:44 RBC 4.02 m/uL (3.80-5.40) 11/21/16 07:44 Hgb 11.6 gm/dL (11.4-16.0) 11/21/16 07:44 Hct 36.1 % (34.0-46.0) 11/21/16 07:44 MCV 89.7 fL (80.0-100.0) 11/21/16 07:44 MCH 28.8 pg (25.0-35.0) 11/21/16 07:44 MCHC 32.1 g/dL (31.0-37.0) 11/21/16 07:44 RDW 14.1 % (11.5-15.5) 11/21/16 07:44 Plt Count 273 k/uL (150-450) 11/21/16 07:44 Neutrophils % 32 % 11/21/16 07:44 Lymphocytes % 55 % 11/21/16 07:44 Monocytes % 6 % 11/21/16 07:44 Eosinophils % 4 % 11/21/16 07:44 Basophils % 1 % 11/21/16 07:44 Neutrophils # 1.8 k/uL (1.3-7.7) 11/21/16 07:44 Lymphocytes # 3.1 k/uL (1.0-4.8) 11/21/16 07:44 Monocytes # 0.3 k/uL (0-1.0) 11/21/16 07:44 Eosinophils # 0.2 k/uL (0-0.7) 11/21/16 07:44 Basophils # 0.1 k/uL (0-0.2) 11/21/16 07:44 Manual Slide Review Performed 11/21/16 07:44 Poikilocytosis (manual Present 11/21/16 07:44 Sodium 137 mmol/L (137-145) 11/21/16 07:44 Potassium 4.0 mmol/L (3.5-5.1) 11/21/16 07:44 Chloride 103 mmol/L (98-107) 11/21/16 07:44 Carbon Dioxide 25 mmol/L (22-30) 11/21/16 07:44 Anion Gap 9 mmol/L 11/21/16 07:44 BUN 12 mg/dL (7-17) 11/21/16 07:44 Creatinine 0.75 mg/dL (0.52-1.04) 11/21/16 07:44 Est GFR (MDRD) Af Amer >60 (>60 ml/min/1.73 sqM) 11/21/16 07:44 Est GFR (MDRD) Non-Af >60 (>60 ml/min/1.73 sqM) 11/21/16 07:44 Glucose 78 mg/dL (74-99) 11/21/16 07:[address] Glu mg/dL 100 mg/dL 11/21/16 07:44 Hemoglobin A1c 5.1 % (4.2-6.1) 11/21/16 07:44 Calcium 9.1 mg/dL (8.4-10.2) 11/21/16 07:44 Total Bilirubin 0.3 mg/dL (0.2-1.3) 11/21/16 07:44 AST 17 U/L (14-36) 11/21/16 07:44 ALT 28 U/L (9-52) 11/21/16 07:44 Alkaline Phosphatase 43 U/L (38-126) 11/21/16 07:44 Total Protein 6.6 g/dL (6.3-8.2) 11/21/16 07:44 Albumin 3.5 g/dL (3.5-5.0) 11/21/16 07:44 Triglycerides 343 mg/dL (<150) H 11/21/16 07:44 Cholesterol 182 mg/dL (<200) 11/21/16 07:44 LDL Cholesterol, Calc 48 mg/dL (0-99) 11/21/16 07:44 HDL Cholesterol 65 mg/dL (40-60) H 11/21/16 07:44 TSH 2.300 mIU/L (0.465-4.680) 11/21/16 07:44 Urine Color Yellow 11/21/16 12:59 Urine Appearance Cloudy (Clear) H 11/21/16 12:59 Urine pH 6.5 (5.0-8.0) 11/21/16 12:59 Ur Specific [place] 1.019 (1.001-1.035) 11/21/16 12:59 Urine Protein Trace (Negative) H 11/21/16 12:59 Urine Glucose (UA) Negative (Negative) 11/21/16 12:59 Urine Ketones Negative (Negative) 11/21/16 12:59 Urine Blood Negative (Negative) 11/21/16 12:59 Urine Nitrite Negative (Negative) 11/21/16 12:59 Urine Bilirubin Negative (Negative) 11/21/16 12:59 Urine Urobilinogen 3.0 mg/dL (<2.0) 11/21/16 12:59 Ur Leukocyte Esterase Small (Negative) H 11/21/16 12:59 Urine RBC 1 /hpf (0-5) 11/21/16 12:59 Urine WBC 2 /hpf (0-5) 11/21/16 12:59 Ur Squamous Epith Cells 10 /hpf (0-4) H 11/21/16 12:59 Urine Bacteria Moderate /hpf (None) H 11/21/16 12:59 Urine Mucus Occasional /hpf (None) H 11/21/16 12:59 Urine HCG, Qual Not Detected (Not Detectd) 11/20/16 08:43 Urine Opiates Screen Not Detected (NotDetected) 11/20/16 08:43 Ur Oxycodone Screen Not Detected (NotDetected) 11/20/16 08:43 Urine Methadone Screen Not Detected (NotDetected) 11/20/16 08:43 Ur Propoxyphene Screen Not Detected (NotDetected) 11/20/16 08:43 Ur Barbiturates Screen Not Detected (NotDetected) 11/20/16 08:43 U Tricyclic Antidepress Not Detected (NotDetected) 11/20/16 08:43 Ur Phencyclidine Scrn Not Detected (NotDetected) 11/20/16 08:43 Ur Amphetamines Screen Not Detected (NotDetected) 11/20/16 08:43 U Methamphetamines Scrn Not Detected (NotDetected) 11/20/16 08:43 U Benzodiazepines Scrn Detected (NotDetected) H 11/20/16 08:43 Urine Cocaine Screen Not Detected (NotDetected) 11/20/16 08:43 U Marijuana (THC) Screen Detected (NotDetected) H 11/20/16 08:43 HPI: Patient is 26 year female who presented to the ER with chief complaint of SI x 2 weeks. She reports that she feels unhappy with life, and this was triggered 2-weeks ago by financial problems but those have largely been resolved. She states that she doesn't understand why she is so depressed and her family is likewise. She reports having a strong social network, good, positive relationship with girlfriend, steady, stable job. She reports struggling with refractory depression since age of 13 with no specific treatment ever standing out as highly successful. Patient states she is compliant with her medications, sees her psychiatrist once a month, counselor once a week, and yet she still feel at times so unhappy. Patient endorses a depressed mood, anhedonia, episodes of PMR, and recently SI. She states her sleep is fairly stable sleeping ~7 hours per night. No recent change in appetite or concentration. Patient denies any symptoms suggestive of a past manic or hypomanic episode. She denies any past trauma or exposure to trauma. She denies any history of abuse. She denies any history of dissociative episodes. She denies symptoms suggestive of ADHD. She denies AVH. She does endorse episodes of intermittent cutting that she gave up for many years and recently started again. PSYCHIATRIC HISTORY: formal diagnosis unknown, currently seeing OP psychiatry monthly and OP counseling every week, patient reports a history of depression since age 13 with multiple drug failures including Paxil, Zoloft, Effexor, Seroquel (side effect: SI), Remeron. She reports a positive response to Wellbutrin XL but this was discontinued when patient underwent gastric sleeve surgery due to extended release formulation being contraindicated. Patient was recently started on Lexapro that has been increased to 10-mg PO QAM with no notable change, but has only been taking it a few weeks. She also reports recently stopping Abilify which she took for several months that gave her severe akathisia. Patient has a history of 1 previous hospitalization for SI several years ago. PMH: Past Medical History: Asthma, GERD/Reflux, Hypertension Additional Past Medical History / Comment(s): Past HTN but not since weight loss , high triglycerides, pancreatitis, ascities, anemia, herpes simplex I. Past Surgical History: Adenoidectomy, Bariatric Surgery, Section, Cholecystectomy, Hernia Repair Additional Past Surgical History / Comment(s): left ovary removed d/t torsion, laparocopic sleeve gastrectomy 02/28/15, suprapubic hernia repair as an infant. 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 environmental: lives mom, dad, son, siblings, strong social support from girlfriend : no zoroastrianism: [employer] access to firearms: no sexual orientation: lesbian safety at home: yes STRENGTHS/WEAKNESSES: strong social network, stable housing, job/low self esteem INTELLECTUAL FUNCTIONING: average MENTAL STATUS EXAM: Appearance: alert, well groomed, appears stated age, steady gait Behavior: no psychomotor agitation or psychomotor retardation, no abnormal movements, fair eye contact Attitude: cooperative Speech: normal rate, rhythm, fluency, articulation; volume; and prosody; primary language: Belarusian Mood: depressed Affect: flat, rigid, immobile Thought processes: linear, organized Thought content: patient does not appear to be responding to internal stimuli; patient denies auditory and visual hallucinations, no delusions appreciated Insight: fair Judgment: fair Assessment and Plan (1) Major depressive disorder, recurrent severe without psychotic features Narrative/Plan: * start Ritalin 5-mg PO AC breakfast + 5-mg AC lunch * continue Lexapro 10-mg PO QAM * discontinue Risperdal Status: Acute Plan: * continue hospitalization * * patient encouraged to attend all group, recreational, and activity therapies * * SW will arrange a family meeting to help develop disposition and discharge planning * * patient expressed interest in possible discharge to [facility] after finishing IP course, information regarding such provided Time with Patient: Greater than 30
[2016-11-22] MEDS ORDERED: METHYLPHENIDATE HCL 5 MG TAB PO SCH (07:30)
[2016-11-22] MEDS: METHYLPHENIDATE HCL 5 MG TAB PO SCH ×2 (09:14→11:57)
--- NOTE | 2016-11-22 19:40 | P.PN ---
Progress Note - Text Vital Signs Temp 98.0 F 11/22/16 06:37 Pulse 72 11/22/16 06:37 Resp 14 11/22/16 06:37 BP 110/55 11/22/16 06:37 Pulse Ox 100 11/20/16 10:29 Interval History: Patient interviewed privately. She reports some improvements in falling asleep with Trazodone but still took over an hour last night and reports multiple arousals although she concedes this could be do to another patient who is "terrorizing" the unit at night with her loud banter. Patient reports minimal response to Ritalin 5-mg dose. Patient reports she remains positive that this combination of medications can be tweaked to work well for her. Staff report patient is doing well on the unit, she is engaging with peers, attending all group and recreation therapies. Patient continues to appear clinically depressed with a sullen affect that is flat, with almost no mobility and congruent with her depressed, sad mood. Appearance: alert, well groomed, appears stated age, steady gait Behavior: no psychomotor agitation or psychomotor retardation, no abnormal movements, fair eye contact Attitude: cooperative Speech: normal rate, rhythm, fluency, articulation; volume soft; and prosody ; primary language: Panamanian Mood: depressed Affect: flat, restricted Thought processes: linear, organized Thought content: patient does not appear to be responding to internal stimuli; patient denies auditory and visual hallucinations, no delusions appreciated Insight: fair Judgment: fair Plan: * increase Ritalin to 10-mg PO AC Breakfast + 10-mg PO AC Lunch * increase Trazodone to 100-mg PO QHS * continue Lexapro 10-mg
[2016-11-22] MEDS: ESCITALOPRAM 10 MG TAB PO SCH (21:01)
[2016-11-22] MEDS: traZODone HCL 50 MG TAB PO SCH (21:01)
[2016-11-22] MEDS: PANTOPRAZOLE 40 MG TABLET PO SCH (21:01)
[2016-11-22] MEDS: ACYCLOVIR 800 MG TAB PO SCH (21:01)
[2016-11-22] MEDS: HYDROCHLOROTHIAZIDE 12.5 MG CAP PO SCH (21:01)
[2016-11-22] MEDS: AZURETTE PO SCH (21:15)
[2016-11-23] MEDS: METHYLPHENIDATE HCL 10 MG TAB PO SCH (08:28)
[2016-11-23] MEDS ORDERED: METHYLPHENIDATE HCL 10 MG TAB PO SCH (12:30)
--- NOTE | 2016-11-23 18:57 | P.PN ---
Progress Note - Text Progress Note Date: 11/23/16 Vital Signs: Temp 98.2 F 11/23/16 06:38 Pulse 118 H 11/23/16 14:38 Resp 20 11/23/16 14:38 BP 124/76 11/23/16 14:38 Pulse Ox 100 11/20/16 10:29 Interval History: Patient interviewed privately after family meeting. She has been crying and appears tired. Patient reports increased anxiety and difficulty falling asleep last night due to another patient on the unit causing lots of noise and distractions. Patient states states she woke up this morning somewhat groggy and didn't feel much of and improvement after taking the Ritalin and is : seriously disappointed" about such Patient calmed and reassured that the problem is likely her Trazodone needing to be adjusted as we discussed might happen yesterday, Patient encouraged to keep up the good work and strive towards her goals. At this time, patient denies SI/HI/AVH. She continues to express and appears very depressed. Mental Status Exam: Appearance: alert, well groomed, appears stated age, steady gait Behavior: psychomotor agitation++, no abnormal movements, fair eye contact Attitude: cooperative Speech: normal rate, rhythm, fluency, articulation; volume soft; and prosody ; primary language: Kazakh Mood: anxious Affect: flat, restricted Thought processes: linear, organized Thought content: patient does not appear to be responding to internal stimuli; patient denies auditory and visual hallucinations, no delusions appreciated Insight: fair Judgment: fair Plan: * continue Ritalin to 10-mg PO AC Breakfast + 10-mg PO AC Lunch * decrease Trazodone to 75-mg PO QHS * continue Lexapro 10-mg * continue hospitalization
[2016-11-23] MEDS: HYDROCHLOROTHIAZIDE 12.5 MG CAP PO SCH (20:20)
[2016-11-23] MEDS: traZODone HCL 50 MG TAB PO SCH (20:20)
[2016-11-23] MEDS: ESCITALOPRAM 10 MG TAB PO SCH (20:20)
[2016-11-23] MEDS: ACYCLOVIR 800 MG TAB PO SCH (20:20)
[2016-11-23] MEDS: PANTOPRAZOLE 40 MG TABLET PO SCH (20:20)
[2016-11-23] MEDS: AZURETTE PO SCH (21:05)
[2016-11-24] MEDS: METHYLPHENIDATE HCL 10 MG TAB PO SCH (08:21)
--- NOTE | 2016-11-24 09:51 | P.PN ---
Progress Note - Text Interval history: The patient is found in her room she follows me to an interview room. She was admitted for severe symptoms of depression with suicidal ideation. The patient has been continued on Lexapro and Ritalin has been added during the course of this stay. She states that Ritalin is provided no benefit. Trazodone is being used at bedtime which seems to be helping sleep but she feels the 100 mg dose is too high. She states Dr. Gomez discussed reducing the dose to 75 mg. We reviewed the several other psychotropics that she has tried in the past including Paxil Zoloft Effexor. She has been on Abilify and Risperdal. She had also trialed Wellbutrin in the past for several years and she thinks it may have provided some benefit but it was stopped because she had bariatric surgery and she was utilizing an extended release version of the medicine. Mental status exam: The patient is a female appearing her stated age she is overweight, she is dressed in her own clothing hygiene grooming appear adequate. She has a lower lip piercing her hair is short. Eye contact is good she has spontaneous speech. She endorses a sad depressed mood with ongoing suicidal thoughts. Her affect is dysphoric and she is tearful during the session. She reports no homicidal ideation intent or plan. She is endorsing no auditory or visual hallucinations or specific delusions, there is no evidence of psychosis. She does not appear hypomanic or manic. Thought process is linear and goal-directed. She demonstrates no verbal or physical aggressiveness. She is oriented to person place and date. Plan: Major depressive disorder, the patient will continue on the Lexapro 10 mg daily consider re-titrating back to 20 mg daily. We will discontinue the Ritalin as ordered an increase the morning dose to 15 mg. If there is no clear benefit from that medication I would considered discontinuing it and consider re -trialing Wellbutrin. The trazodone dose will be reduced to 75 mg at bedtime. We will continue to monitor the patient for safety she is encouraged to continue participating in the milieu. Vital signs reviewed.
[2016-11-24] MEDS: traZODone HCL 50 MG TAB PO SCH (20:08)
[2016-11-24] MEDS: ACYCLOVIR 800 MG TAB PO SCH (20:08)
[2016-11-24] MEDS: HYDROCHLOROTHIAZIDE 12.5 MG CAP PO SCH (20:09)
[2016-11-24] MEDS: ESCITALOPRAM 10 MG TAB PO SCH (20:09)
[2016-11-24] MEDS: PANTOPRAZOLE 40 MG TABLET PO SCH (20:09)
[2016-11-24] MEDS: AZURETTE PO SCH (20:09)
[2016-11-25] MEDS: METHYLPHENIDATE HCL 5 MG TAB PO SCH (08:57)
--- NOTE | 2016-11-25 11:43 | P.PN ---
Progress Note - Text Interval history: The patient is found in her room she follows me to an interview room. She reports her mood is still depressed she is frustrated that medication intervention hasn't provided more relief. Her girlfriend did visit last evening and that was supportive. She states there are no conflicts in the relationship at this time. We discussed titrating the morning dose of the Ritalin today. She felt the trazodone at 75 mg did provide benefit with sleep but still feels tired in the morning. She is encouraged to take the trazodone earlier in the evening. It was documented she slept approximate 5 hours. Mental status exam: The patient is an overweight female she seated calmly her chair. She is cooperative. Speech is fluent and spontaneous nonpressured. She reports a depressed mood she displays a congruent affect that appears dysphoric. She is not tearful today. She endorses hopelessness thinking. She does feel safe here in the hospital in terms of suicidal thoughts. No homicidal ideation. There is no report or evidence of psychosis and she does not appear hypomanic or manic. There is no circumstantial or tangential thinking no loose associations or flight of ideas. She demonstrates no verbal or physical aggressiveness. Plan: The patient will continue on her current psychotropic medications. She had the Ritalin not demonstrate efficacy I would consider discontinuing it and augmenting again with Wellbutrin using the immediate release form. Consider titrating Lexapro back to 20 mg daily. We will continue to monitor her for safety she is encouraged to participate in the milieu. Vital signs reviewed.
[2016-11-25] MEDS: HYDROCHLOROTHIAZIDE 12.5 MG CAP PO SCH (21:07)
[2016-11-25] MEDS: ACYCLOVIR 800 MG TAB PO SCH (21:07)
[2016-11-25] MEDS: ESCITALOPRAM 10 MG TAB PO SCH (21:07)
[2016-11-25] MEDS: PANTOPRAZOLE 40 MG TABLET PO SCH (21:08)
[2016-11-25] MEDS: AZURETTE PO SCH (21:08)
[2016-11-25] MEDS: traZODone HCL 50 MG TAB PO SCH (21:10)
[2016-11-26] MEDS: METHYLPHENIDATE HCL 5 MG TAB PO SCH (08:28)
[2016-11-26] MEDS ORDERED: METHYLPHENIDATE HCL 5 MG TAB PO SCH (12:30)
--- NOTE | 2016-11-26 18:53 | P.PN ---
Progress Note - Text Progress Note Date: 11/26/16 Vital Signs Temp 98.2 F 11/26/16 07:03 Pulse 63 11/26/16 07:03 Resp 16 11/26/16 07:03 BP 115/59 11/26/16 07:03 Pulse Ox 100 11/20/16 10:29 Intake & Output 11/25/16 11/26/16 11/26/16 18:59 06:59 18:59 Weight 96.7 kg Interval History: Patient reports that her weekend was overall "ok" and feels that the change of her Ritalin dose to 15-mg PO AC breakfast has been somewhat helpful but the dose wears off. She continues to feel somewhat depressed but less so than at admission. Patient states today that she has decided she will do PHP after discharge. Patient is sleeping better with Trazodone at 75-mg PO QHS. Appetite is stable. Patient denies SI/HI/AVH. Mental Status Exam: Appearance: alert, well groomed, appears stated age, steady gait Behavior: psychomotor agitation+, no abnormal movements, fair eye contact Attitude: cooperative Speech: normal rate, rhythm, fluency, articulation; volume soft; and prosody ; primary language: Divehi Mood: mildly anxious Affect: restricted, congruent Thought processes: linear Thought content: patient does not appear to be responding to internal stimuli; patient denies auditory and visual hallucinations, no delusions appreciated Insight: fair Judgment: fair Plan: * increase Ritalin to 15-mg PO AC breakfast + 15-mg AC lunch * continue Trazodone to 75-mg PO QHS * continue Lexapro 10-mg * continue hospitalization
[2016-11-26] MEDS: ACYCLOVIR 800 MG TAB PO SCH (21:38)
[2016-11-26] MEDS: traZODone HCL 50 MG TAB PO SCH (21:38)
[2016-11-26] MEDS: ESCITALOPRAM 10 MG TAB PO SCH (21:39)
[2016-11-26] MEDS: HYDROCHLOROTHIAZIDE 12.5 MG CAP PO SCH (21:39)
[2016-11-26] MEDS: AZURETTE PO SCH (21:40)
[2016-11-26] MEDS: PANTOPRAZOLE 40 MG TABLET PO SCH (21:49)
[2016-11-27] MEDS: METHYLPHENIDATE HCL 5 MG TAB PO SCH (08:47)
[2016-11-27] MEDS ORDERED: METHYLPHENIDATE HCL 10 MG TAB PO SCH (12:30)
--- NOTE | 2016-11-27 12:43 | P.PN ---
Progress Note - Text Progress Note Date: 11/27/16 Vital Signs Temp 98.1 F 11/27/16 06:25 Pulse 75 11/27/16 06:25 Resp 15 11/27/16 06:25 BP 115/56 11/27/16 06:25 Pulse Ox 100 11/20/16 10:29 Interval History: Patient interviewed privately. She appears more anxious today than previous exam. Patient states her day was "ok" yesterday until two things happened. One was she had a "crashing" effect from the Ritalin in the afternoon after taking her pre-lunch dose and felt tired and fatigued during groups for the evening. However, she reports feeling much improved up until about 18:00. The second was "two negative phone calls" that patient was hesitant to discuss in detail and had to be asked several times before patient would be forthright. Patient states her mother was upset with her sister and sister's who live at home with patient/mom yesterday, and had been quarrelling. Patient states that mother "unloaded on me" and was sharp with her words that were hurtful to patient. Despite multiple attempts, patient is guarded as to the exact details of said argument. Patient ended this call by abruptly hanging up on mother. Later patient reports having a conversation with her girlfriend where patient was upset and somewhat snappish which setoff girlfriend who had reminded patient she was in the hospital because she was having suicidal thoughts. Later , patient spoke to both mother and girlfriend and the conversation were more pleasant the second round but the "damage" had been done for the time being, and this made patient feel more anxious and depressed. She also got to speak with her son who is overall doing well but has been hiding homework in the front of his backpack and now has to attend after school sessions to make up for it. Patient blames herself for his behaviors. Patient states these events have happened before and usually resolve themselves with time, but they are just frustrating especially when her Ritalin was wearing off. Mental Status Exam: Appearance: alert, well groomed, appears stated age, steady gait Behavior: psychomotor agitation+ no abnormal movements, fair eye contact Attitude: cooperative Speech: normal rate, rhythm, fluency, articulation, volume, and prosody; primary language: Swazi Mood: anxious Affect: constricted, tight, incongruent with mood Thought processes: linear Thought content: patient does not appear to be responding to internal stimuli; patient denies auditory and visual hallucinations, no delusions appreciated, denies SI/HI Insight: fair Judgment: fair Cognitive: oriented to all 3 spheres, average intelligence Plan: change Ritalin to 15-mg PO AC BREAKFAST + 10-mg PO AC LUNCH + 5-mg Q 16:30 start Wellbutrin 100-mg PO AC BREAKFAST + 100-mg PO AC LUNCH increase Lexapro to 20-mg PO QHS continue Trazodone 75-mg PO QHS increase Lexapro to 20-mg PO QHS continue hospitalization, provisional discharge tomorrow with anticipated follow up to PHP
[2016-11-27] MEDS: buPROPion 100 MG TAB PO SCH (12:46)
[2016-11-27] MEDS ORDERED: METHYLPHENIDATE HCL 5 MG TAB PO SCH ×2 (14:00→16:30)
[2016-11-27] MEDS: ACYCLOVIR 800 MG TAB PO SCH (20:14)
[2016-11-27] MEDS: HYDROCHLOROTHIAZIDE 12.5 MG CAP PO SCH (20:15)
[2016-11-27] MEDS: PANTOPRAZOLE 40 MG TABLET PO SCH (20:15)
[2016-11-27] MEDS: traZODone HCL 50 MG TAB PO SCH (20:15)
[2016-11-27] MEDS: AZURETTE PO SCH (20:17)
[2016-11-27 20:19] VITALS: RESP 16
[2016-11-27] MEDS ORDERED: buPROPion 100 MG TAB PO SCH (21:00)
[2016-11-27] MEDS ORDERED: ESCITALOPRAM 20 MG TAB PO SCH (21:00)
[2016-11-28 06:22] VITALS: BP 109/66; PULSE 71; TEMP 97.5
[2016-11-28] MEDS ORDERED: METHYLPHENIDATE HCL 10 MG TAB PO SCH ×2 (08:49→08:50)
[2016-11-28] MEDS: buPROPion 100 MG TAB PO SCH (08:59)
[2016-11-28] MEDS: METHYLPHENIDATE HCL 5 MG TAB PO SCH (09:02)
--- NOTE | 2016-12-16 22:47 | P.DS ---
Providers Date of admission: 11/20/16 10:26 Expected date of discharge: 11/28/16 Attending physician: Michael Gomez DO Consults: 11/20/16 11:08 Consult Physician Routine Consulting Provider: Edgar Lylse Reason/Comments: history and physical Do you want consulting provider notified?: Yes Primary care physician: Carlos Edwards Charbal - Discharge Diagnosis(es) (1) Major depressive disorder, recurrent severe without psychotic features Status: Acute Priority: High Hospital Course: HOSPITAL COURSE: * Legal status at discharge: Voluntary * Compliant with medications: Yes * Reported adverse side effects: No * Require restraints/seclusion: No * Emergency Medication administered: No * Attend group, recreational, activity therapies: Yes Patient is 26 year old female who presented to the ER with chief complaint of SI x2 weeks. At time of presentation, patient was able to identify financial and relationship problems as precipitating factors. Patient endorsed full criteria for major depressive disorder. She denied any symptoms suggestive past manic or hypomanic episode. She denied any past trauma or exposure to trauma. She denied any history of abuse. She denied any history of dissociative episodes. She denied symptoms suggestive of ADHD. She denied AVH. She did endorse intermittent cutting that she gave up for many years and recently started again. Patient had an OP provider and therapist prior to admission and reported no benefit from OP treatment. After several medication changes arriving at a combination where patient felt alert and focused during the day and was able to sleep at night, patient began to improve. However, patient was still somewhat dysphoric at time of discharge. At time of discharge, patient denied SI/HI/AVH. MENTAL STATUS EXAM: Appearance: alert, well groomed, appears stated age, steady gait Behavior: no psychomotor agitation or psychomotor retardation, no abnormal movements, fair eye contact Attitude: cooperative Speech: normal rate, rhythm, fluency, articulation, volume, and prosody; primary language: [place] Mood: mildly dysphoric Affect: congruent, reactive Thought processes: linear Thought content: patient does not appear to be responding to internal stimuli ; patient denies auditory and visual hallucinations, no delusions appreciated Insight: fair Judgment: good Cognitive: oriented to all 3 spheres, average intelligence Discharge Medication List Hydrochlorothiazide [Hydrodiuril] 12.5 mg PO HS 06/28/14 [History] Azurette 1 tab PO HS 10/20/14 [History] Omeprazole [PriLOSEC] 20 mg PO HS 07/03/16 [History] Acyclovir [Zovirax] 800 mg PO HS #14 tab 11/23/16 [Rx] Escitalopram [Lexapro] 10 mg PO HS #14 tab 11/23/16 [Rx] traZODone HCL 100 mg PO HS #14 tablet 11/23/16 [Rx] Escitalopram [Lexapro] 20 mg PO HS #14 tab 11/28/16 [Rx] LORazepam [Ativan] 1 mg PO BID #28 tab 11/28/16 [Rx] Methylphenidate HCl [Ritalin] 20 mg PO DIRECTED #28 tablet 11/28/16 [Rx] buPROPion [Wellbutrin] 100 mg PO 0730,1230 #28 tab 11/28/16 [Rx] traZODone HCL [Desyrel] 75 mg PO HS #21 tab 11/28/16 [Rx] Patient Condition at Discharge: Fair Plan - Discharge Summary New Discharge Prescriptions: New Escitalopram [Lexapro] 10 mg PO HS #14 tab traZODone HCL 100 mg PO HS #14 tablet buPROPion [Wellbutrin] 100 mg PO 0730,1230 #28 tab Escitalopram [Lexapro] 20 mg PO HS #14 tab LORazepam [Ativan] 1 mg PO BID #28 tab Methylphenidate HCl [Ritalin] 20 mg PO DIRECTED #28 tablet traZODone HCL [Desyrel] 75 mg PO HS #21 tab Continue Hydrochlorothiazide [Hydrodiuril] 12.5 mg PO HS Azurette 1 tab PO HS Omeprazole [PriLOSEC] 20 mg PO HS Acyclovir [Zovirax] 800 mg PO HS #14 tab Discontinued Escitalopram [Lexapro] 20 mg PO HS risperiDONE 1 mg PO HS Discharge Medication List Hydrochlorothiazide [Hydrodiuril] 12.5 mg PO HS 06/28/14 [History] Azurette 1 tab PO HS 10/20/14 [History] Omeprazole [PriLOSEC] 20 mg PO HS 07/03/16 [History] Acyclovir [Zovirax] 800 mg PO HS #14 tab 11/23/16 [Rx] Escitalopram [Lexapro] 10 mg PO HS #14 tab 11/23/16 [Rx] traZODone HCL 100 mg PO HS #14 tablet 11/23/16 [Rx] Escitalopram [Lexapro] 20 mg PO HS #14 tab 11/28/16 [Rx] LORazepam [Ativan] 1 mg PO BID #28 tab 11/28/16 [Rx] Methylphenidate HCl [Ritalin] 20 mg PO DIRECTED #28 tablet 11/28/16 [Rx] buPROPion [Wellbutrin] 100 mg PO 0730,1230 #28 tab 11/28/16 [Rx] traZODone HCL [Desyrel] 75 mg PO HS #21 tab 11/28/16 [Rx] Follow up Appointment(s)/Referral(s): [facility] [Outside] - 11/28/16 1:00 pm (Charmaine Rey) Rimma Gonzalez MD [Primary Care Provider] - 1-2 days Patient Instructions/Handouts: Depression (GEN), Suicide Prevention for Adults (GEN) Activity/Diet/Wound Care/Special Instructions: Activity and diet as tolerated. Avoid the use of street drugs and alcohol. Take all medications as prescribed. When you are in need of refills on your medications please contact your medical provider and/or outpatient psychiatrist to have this done. Please go to scheduled outpatient appointment for aftercare treatment. If symptoms return or become worse call the crisis line at [phone] and/or go to the nearest emergency room for an evaluation. Discharge Disposition: HOME SELF-CARE
== END 2016-11-28 10:41 | disposition home or self-care (01) | DRG 885 ==
LOC: EC 08:12 → 3MHU 10:26
PROVIDERS: ADMIT Psychiatry & Neurology Psychiatry; ATTEND Psychiatry & Neurology Psychiatry
DX: F33.2 Major depressive disorder, recurrent severe without psychotic features (principal); R45.851 Suicidal ideations; I10 Essential (primary) hypertension; J45.909 Unspecified asthma, uncomplicated; K21.9 Gastro-esophageal reflux disease without esophagitis; F41.9 Anxiety disorder, unspecified; A60.00 Herpesviral infection of urogenital system, unspecified; E66.3 Overweight; E78.5 Hyperlipidemia, unspecified; X78.9XXA Intentional self-harm by unspecified sharp object, initial encounter; Z90.721 Acquired absence of ovaries, unilateral; Z91.5 Personal history of self-harm; Z98.84 Bariatric surgery status; Z82.5 Family history of asthma and other chronic lower respiratory diseases; Z82.49 Family history of ischemic heart disease and other diseases of the circulatory system; Z81.8 Family history of other mental and behavioral disorders; Z87.19 Personal history of other diseases of the digestive system; Z87.891 Personal history of nicotine dependence; Z79.899 Other long term (current) drug therapy; Z90.49 Acquired absence of other specified parts of digestive tract; Z88.8 Allergy status to other drugs, medicaments and biological substances; Z91.048 Other nonmedicinal substance allergy status
CPT/HCPCS: 80053; 80061; 80306; 81001; 81025; 82075; 83036; 84443; 85025; 99285

== ENCOUNTER 2017-11-06 16:28 | Emergency (ER) | payer OTHER ==
[2017-11-06 17:19] VITALS: PULSE 71
--- NOTE | 2017-11-06 18:06 | ED ---
Psych HPI - General Chief Complaint: Psychiatric Symptoms Stated Complaint: Mental Health Time Seen by Provider: 11/06/17 17:32 Source: patient, RN notes reviewed Mode of arrival: ambulatory Limitations: no limitations - History of Present Illness Initial Comments: 26-year-old female presents emergency Department chief complaint depression, suicidal ideation. Patient states that she has a history of depression and bipolar disorder. Patient states she's been taking her medications though she feels more depressed and has thoughts of cutting herself. Patient states that she also has thoughts of overdosing. Patient denies any homicidal ideation denies any physical complaints at this time. She does see a counselor and psychiatrist. Patient has been admitted to psychiatric unit in the past. - Related Data Home Medications Medication Instructions Recorded Confirmed Azurette 1 tab PO HS 10/20/14 11/06/17 Omeprazole [PriLOSEC] 20 mg PO HS 07/03/16 11/06/17 Acetaminophen [Tylenol] 1,000 mg PO Q4-6H PRN 11/06/17 11/06/17 Citalopram Hydrobromide [CeleXA] 10 mg PO HS 11/06/17 11/06/17 lamoTRIgine [LaMICtal] 100 mg PO HS 11/06/17 11/06/17 risperiDONE [RisperDAL] 1 mg PO HS 11/06/17 11/06/17 Previous Rx's Medication Instructions Recorded Acyclovir [Zovirax] 800 mg PO HS #14 tab 11/23/16 Allergies Allergy/AdvReac Type Severity Reaction Status Date / Time cat dander Allergy Unknown Verified 11/06/17 17:48 diphenhydramine HCl AdvReac anxiety Verified 11/06/17 17:48 [From Benadryl] environmental Allergy Unknown Uncoded 11/06/17 17:19 Review of Systems ROS Statement: Those systems with pertinent positive or pertinent negative responses have been documented in the HPI. ROS Other: All systems not noted in ROS Statement are negative. Past Medical History Past Medical History: Asthma, GERD/Reflux, Hypertension Additional Past Medical History / Comment(s): Past HTN but not since weight loss , high triglycerides, pancreatitis, ascities, anemia, herpes simplex I. 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 Past Anesthesia/Blood Transfusion Reactions: No Reported Reaction Past Psychological History: Anxiety, Depression Smoking Status: Former smoker Past Alcohol Use History: Occasional Past Drug Use History: Marijuana - Past Family History Father Family Medical History: COPD, Hypertension Additional Family Medical History / Comment(s): Depression. Mother Family Medical History: Hypertension General Exam Limitations: no limitations General appearance: alert, in no apparent distress Head exam: Present: atraumatic, normocephalic, normal inspection Eye exam: Present: normal appearance, PERRL, EOMI. Absent: scleral icterus, conjunctival injection, periorbital swelling ENT exam: Present: normal exam, normal oropharynx, mucous membranes moist Neck exam: Present: normal inspection, full ROM. Absent: tenderness, meningismus, lymphadenopathy Respiratory exam: Present: normal lung sounds bilaterally. Absent: respiratory distress, wheezes, rales, rhonchi, stridor Cardiovascular Exam: Present: regular rate, normal rhythm, normal heart sounds. Absent: systolic murmur, diastolic murmur, rubs, gallop, clicks GI/Abdominal exam: Present: soft, normal bowel sounds. Absent: distended, tenderness, guarding, rebound, rigid Neurological exam: Present: alert Psychiatric exam: Present: depressed Course Vital Signs 11/06/17 17:16 Temperature 98.3 F Pulse Rate 71 Respiratory 20 Rate Blood Pressure 130/78 O2 Sat by Pulse 100 Oximetry Medical Decision Making - Medical Decision Making 26-year-old female presented emergency department for depression and psychiatric issues. Patient was evaluated by EPS. Case discussed with psychiatrist and mother in which the patient will be discharged to mother who accepts responsibility the patient she does contract for safety at this time. - Lab Data Lab Results 11/06/17 Range/Units 19:00 Urine Opiates Screen Not Detected (NotDetected) Ur Oxycodone Screen Not Detected (NotDetected) Urine Methadone Screen Not Detected (NotDetected) Ur Propoxyphene Screen Not Detected (NotDetected) Ur Barbiturates Screen Not Detected (NotDetected) U Tricyclic Antidepress Not Detected (NotDetected) Ur Phencyclidine Scrn Not Detected (NotDetected) Ur Amphetamines Screen Not Detected (NotDetected) U Methamphetamines Scrn Not Detected (NotDetected) U Benzodiazepines Scrn Detected H (NotDetected) Urine Cocaine Screen Not Detected (NotDetected) U Marijuana (THC) Screen Detected H (NotDetected) Disposition Clinical Impression: Depression Disposition: HOME SELF-CARE Condition: Stable Instructions: Depression (ED) Additional Instructions: Please return to the Emergency Department if symptoms worsen or any other concerns. Is patient prescribed a controlled substance at d/c from ED?: No Referrals: Rimma Gonzalez MD [Primary Care Provider] - 1-2 days Time of Disposition: 20:33
[2017-11-06 19:33] LABS: Amphetamine Screen,Urine Not Detected (NotDetected); Barbiturate Screen,Urine Not Detected (NotDetected); Benzodiazepines Screen,Urine Detected (NotDetected); Cocaine Screen,Urine Not Detected (NotDetected); Methadone Screen, Urine Not Detected (NotDetected); Opiate Screen,Urine Not Detected (NotDetected); Oxycodone Screen, Urine Not Detected (NotDetected); Phencyclidine Screen,Urine Not Detected (NotDetected); Tricyclic Antidepressant,Urine Not Detected (NotDetected); Urn Cannabinoid Scrn Detected (NotDetected)
[2017-11-06] MEDS ORDERED: ALPRAZolam 0.5 MG TAB PO STA (21:30)
[2017-11-06 21:41] VITALS: BP 134/76; RESP 18; TEMP 97.9
== END 2017-11-06 21:40 | disposition home or self-care (01) ==
LOC: EC 16:28
DX: F31.30 Bipolar disorder, current episode depressed, mild or moderate severity, unspecified (principal); R45.851 Suicidal ideations; K21.9 Gastro-esophageal reflux disease without esophagitis; F41.9 Anxiety disorder, unspecified; Z87.891 Personal history of nicotine dependence; Z88.8 Allergy status to other drugs, medicaments and biological substances; Z91.048 Other nonmedicinal substance allergy status; Z79.3 Long term (current) use of hormonal contraceptives; Z79.899 Other long term (current) drug therapy; Z81.8 Family history of other mental and behavioral disorders
CPT/HCPCS: 80306; 99285

== ENCOUNTER → 2017-11-13 | Outpatient (CLI) | payer OTHER ==
[2017-11-13 08:43] LABS: Basophils % (A) 1 %; Eosinophils # (A) 0.2 k/uL (0-0.7); Eosinophils % (A) 4 %; HCT 34.5 % (34.0-46.0); HGB 11.1 gm/dL (11.4-16.0); Hypochromasia Slight; Lymphocytes # (A) 2.2 k/uL (1.0-4.8); Lymphocytes % (A) 46 %; MCH 26.4 pg (25.0-35.0); MCV 82.3 fL (80.0-100.0); Mean Platelet Volume 7.1; Monocytes # (A) 0.3 k/uL (0-1.0); Monocytes % (A) 6 %; Neutrophils % (A) 42 %; Platelet Count 293 k/uL (150-450); RDW 14.4 % (11.5-15.5); WBC 4.8 k/uL (3.8-10.6)
[2017-11-13 09:10] LABS: Blood Urea Nitrogen 8 mg/dL (7-17)
[2017-11-13 09:25] LABS: T4, Free (Free Thyroxine) 0.91 ng/dL (0.78-2.19)
== END | disposition home or self-care (01) ==
LOC: LABWHC1 08:19
PROVIDERS: ATTEND Nurse Practitioner Family
DX: Z51.81 Encounter for therapeutic drug level monitoring (principal); Z79.899 Other long term (current) drug therapy
CPT/HCPCS: 36415; 82565; 84439; 84443; 84520; 85025

== ENCOUNTER → 2017-11-25 | Outpatient (CLI) | payer OTHER | END | disposition home or self-care (01) | LOC: LABWHC1 07:52 | PROVIDERS: ATTEND Nurse Practitioner Family | DX: Z51.81 Encounter for therapeutic drug level monitoring (principal); Z79.899 Other long term (current) drug therapy | CPT/HCPCS: 36415; 80178 ==

== ENCOUNTER → 2017-12-12 | Outpatient (CLI) | payer OTHER | END | disposition home or self-care (01) | LOC: LABWHC1 10:56 | PROVIDERS: ATTEND Psychiatry & Neurology Psychiatry | DX: Z51.81 Encounter for therapeutic drug level monitoring (principal); Z79.899 Other long term (current) drug therapy | CPT/HCPCS: 36415; 80178 ==

== ENCOUNTER → 2018-04-18 | Outpatient (CLI) | payer OTHER ==
[2018-04-18 11:55] LABS: Basophils # (A) 0.1 k/uL (0-0.2); Basophils % (A) 1 %; Eosinophils # (A) 0.2 k/uL (0-0.7); Eosinophils % (A) 3 %; HCT 31.7 % (34.0-46.0); Hypochromasia Moderate; Lymphocytes % (A) 38 %; MCH 25.9 pg (25.0-35.0); MCHC 31.4 g/dL (31.0-37.0); MCV 82.3 fL (80.0-100.0); Monocytes # (A) 0.2 k/uL (0-1.0); Monocytes % (A) 4 %; Neutrophils # (A) 2.7 k/uL (1.3-7.7); Neutrophils % (A) 52 %; Platelet Count 257 k/uL (150-450); RBC 3.86 m/uL (3.80-5.40); RDW 13.2 % (11.5-15.5); WBC 5.2 k/uL (3.8-10.6)
[2018-04-18 19:05] LABS: ALT 18 U/L (8-44); AST 20 U/L (13-35); Albumin/Globulin Ratio 1.76 (1.60-3.17); Alkaline Phosphatase 45 U/L (41-126); Bilirubin, Conjugated <0.20 mg/dL (0.20-0.40); Carbon Dioxide 23.3 mmol/L (21.6-31.8); Chloride 107 mmol/L (96-109); Cholesterol 165 mg/dL (0-200); Globulin 2.1 g/dL (1.6-3.3); Glucose 88 mg/dL (70-110); LDL Cholesterol,Calculated 35.4 mg/dL (0.0-131.0); Lithium 0.7 mmol/L (1.0-1.2); Potassium 4.3 mmol/L (3.5-5.5); Sodium 140 mmol/L (135-145); Total Bilirubin 0.3 mg/dL (0.2-1.2); Total Protein 5.8 g/dL (6.2-8.2)
[2018-04-18 19:42] LABS: Hemoglobin A1C 4.9 % (4.0-6.0)
== END ==
LOC: LABWHC1 11:28
PROVIDERS: ATTEND Nurse Practitioner Family
DX: Z51.81 Encounter for therapeutic drug level monitoring (principal); Z79.899 Other long term (current) drug therapy
CPT/HCPCS: 36415; 80051; 80061; 80076; 80178; 82565; 82947; 83036; 84439; 84443; 84520; 85025

== ENCOUNTER → 2018-07-07 | Outpatient (CLI) | payer OTHER ==
[2018-07-07 11:54] LABS: Basophils # (A) 0.1 k/uL (0-0.2); Basophils % (A) 1 %; Eosinophils # (A) 0.2 k/uL (0-0.7); Eosinophils % (A) 4 %; HCT 30.7 % (34.0-46.0); HGB 9.7 gm/dL (11.4-16.0); Hypochromasia Marked; Lymphocytes # (A) 1.9 k/uL (1.0-4.8); Lymphocytes % (A) 34 %; MCH 25.3 pg (25.0-35.0); MCHC 31.7 g/dL (31.0-37.0); MCV 79.8 fL (80.0-100.0); Mean Platelet Volume 7.2; Monocytes # (A) 0.2 k/uL (0-1.0); Monocytes % (A) 4 %; Neutrophils # (A) 3.1 k/uL (1.3-7.7); Neutrophils % (A) 56 %; Platelet Count 260 k/uL (150-450); RBC 3.85 m/uL (3.80-5.40); RDW 14.5 % (11.5-15.5); WBC 5.5 k/uL (3.8-10.6)
[2018-07-07 18:15] LABS: ALT 23 U/L (8-44); AST 24 U/L (13-35); Alkaline Phosphatase 46 U/L (41-126); Bilirubin, Conjugated <0.20 mg/dL (0.20-0.40); Cholesterol 191 mg/dL (0-200); Lithium 0.5 mmol/L (1.0-1.2); Total Bilirubin 0.3 mg/dL (0.3-1.2); Total Protein 5.8 g/dL (6.2-8.2)
== END | disposition home or self-care (01) ==
LOC: LABWHC1 11:10
PROVIDERS: ATTEND Nurse Practitioner Family
DX: Z51.81 Encounter for therapeutic drug level monitoring (principal); Z79.899 Other long term (current) drug therapy
CPT/HCPCS: 36415; 80061; 80076; 80178; 82565; 83721; 84520; 85025

== ENCOUNTER → 2018-11-18 | Outpatient (CLI) | payer OTHER ==
[2018-11-18 12:24] LABS: Basophils % (A) 1 %; Eosinophils # (A) 0.2 k/uL (0-0.7); Eosinophils % (A) 4 %; HCT 30.5 % (34.0-46.0); HGB 9.7 gm/dL (11.4-16.0); Hypochromasia Moderate; Lymphocytes # (A) 1.6 k/uL (1.0-4.8); Lymphocytes % (A) 39 %; MCHC 31.8 g/dL (31.0-37.0); MCV 78.4 fL (80.0-100.0); Monocytes # (A) 0.2 k/uL (0-1.0); Monocytes % (A) 5 %; Neutrophils % (A) 49 %; Platelet Count 320 k/uL (150-450); RDW 14.2 % (11.5-15.5); WBC 4.2 k/uL (3.8-10.6)
[2018-11-18 18:02] LABS: ALT 16 U/L (8-44); AST 20 U/L (13-35); African American GFR (CKD) 114.7 (60.0-200.0); Albumin/Globulin Ratio 2.11 (1.60-3.17); Alkaline Phosphatase 26 U/L (41-126); Bilirubin, Conjugated <0.20 mg/dL (0.20-0.40); Chol/HDL Ratio 3.06; Cholesterol 147 mg/dL (0-200); Globulin 1.9 g/dL (1.6-3.3); LDL Cholesterol,Calculated 35.2 mg/dL (0.0-131.0); Lithium 0.5 mmol/L (0.5-1.2); Total Bilirubin 0.4 mg/dL (0.3-1.2); Total Protein 5.9 g/dL (6.2-8.2)
== END | disposition home or self-care (01) ==
LOC: LABWHC1 10:50
PROVIDERS: ATTEND Nurse Practitioner Family
DX: Z51.81 Encounter for therapeutic drug level monitoring (principal); Z79.899 Other long term (current) drug therapy
CPT/HCPCS: 36415; 80061; 80076; 80178; 82565; 84439; 84443; 84520; 85025

== ENCOUNTER → 2019-09-03 | Outpatient (CLI) | payer MEDICARE ==
[2019-09-03 10:39] LABS: Basophils # (A) 0.1 k/uL (0-0.2); Basophils % (A) 1 %; Eosinophils # (A) 0.2 k/uL (0-0.7); Eosinophils % (A) 5 %; HCT 31.3 % (34.0-46.0); HGB 9.5 gm/dL (11.4-16.0); Hypochromasia Marked; Lymphocytes # (A) 1.6 k/uL (1.0-4.8); Lymphocytes % (A) 36 %; MCH 27.3 pg (25.0-35.0); MCHC 30.4 g/dL (31.0-37.0); Mean Platelet Volume 8.5; Monocytes # (A) 0.2 k/uL (0-1.0); Monocytes % (A) 5 %; Neutrophils # (A) 2.3 k/uL (1.3-7.7); Neutrophils % (A) 51 %; Platelet Count 245 k/uL (150-450); RBC 3.48 m/uL (3.80-5.40); RDW 13.5 % (11.5-15.5); WBC 4.5 k/uL (3.8-10.6)
[2019-09-03 17:31] LABS: T4, Free (Free Thyroxine) 1.1 ng/dL (0.80-1.80)
[2019-09-03 17:39] LABS: African American GFR (CKD) 114.7 (60.0-200.0); Albumin/Globulin Ratio 2.35 (1.60-3.17); Bilirubin, Conjugated 0.2 mg/dL (0.20-0.40); Bilirubin,Unconjugated 0.4 mg/dL; Chol/HDL Ratio 2.96; Globulin 1.7 g/dL (1.6-3.3); LDL Cholesterol,Calculated 75.6 mg/dL (0.0-131.0); Lithium 0.9 mmol/L (0.5-1.2); Non-African American GFR(CKD) 98.9 (60.0-200.0); Total Bilirubin 0.6 mg/dL (0.3-1.2); Total Protein 5.7 g/dL (6.2-8.2); VLDL Calculation 20.4 mg/dL (5.00-40.00)
== END | disposition home or self-care (01) ==
LOC: LABWHC1 09:36
PROVIDERS: ATTEND Nurse Practitioner Family
DX: Z51.81 Encounter for therapeutic drug level monitoring (principal); Z79.899 Other long term (current) drug therapy
CPT/HCPCS: 36415; 80061; 80076; 80178; 82565; 82947; 84439; 84443; 84520; 85025

== ENCOUNTER → 2021-08-28 | Outpatient (CLI) | payer MEDICARE, OTHER ==
--- NOTE | 2021-08-28 11:09 | US ---
EXAMINATION TYPE: US transvaginal DATE OF EXAM: 08/28/2021 COMPARISON: CT 2014 CLINICAL HISTORY: N92.0 MENORRHAGIA. Menorrhagia TECHNIQUE: Transvaginal (TV). EXAM MEASUREMENTS: Uterus: 7.4 x 3.7 x 5.0 cm Endometrial Stripe: .4 cm Right Ovary: 3.8 x 2.8 x 3.1 cm Left Ovary: Surgically absent 1. Uterus: Anteverted wnl 2. Endometrium: wnl 3. Right Ovary: Cystic area seen 3.0 x 2.2 x 2.5 cm 4. Left Ovary: Surgically absent 5. Bilateral Adnexa: wnl 6. Posterior cul-de-sac: wnl Visualized uterus appears within normal limits. Endometrial stripe measures 4 mm. No free fluid. Left ovary surgically absent. Right ovary has incidental 3.0 cm thin-walled cyst. No concerning adnex al masses. IMPRESSION: Source of menorrhagia not identified.
== END | disposition home or self-care (01) ==
LOC: RADUSWWP 09:29
PROVIDERS: ATTEND Internal Medicine
DX: N92.0 Excessive and frequent menstruation with regular cycle (principal)
CPT/HCPCS: 76830

== ENCOUNTER → 2022-01-31 | Outpatient (CLI) | payer MEDICARE, OTHER | END | disposition home or self-care (01) | LOC: LABWHC1 12:52 | PROVIDERS: ATTEND Obstetrics & Gynecology | DX: N83.291 Other ovarian cyst, right side (principal) | CPT/HCPCS: 36415; 86304 ==

== ENCOUNTER 2022-12-27 08:53 | Emergency (ER) | payer MEDICARE, OTHER ==
[2022-12-27 09:21] VITALS: RESP 18; TEMP 98.7
[2022-12-27] MEDS ORDERED: KETOROLAC 15 MG/ML 1 ML VIAL IM STA (10:28)
[2022-12-27] MEDS ORDERED: traMADol 50 MG TAB PO STA (10:28)
[2022-12-27] MEDS ORDERED: PENICILLIN V POTASSIUM 250 MG TAB PO STA (10:29)
--- NOTE | 2022-12-27 10:38 | ED ---
ENT HPI - General Chief complaint: Dental/Oral Stated complaint: left side jaw/mouth pain Time Seen by Provider: 12/27/22 09:22 Source: patient Mode of arrival: ambulatory Limitations: no limitations - History of Present Illness Initial comments: Patient's a 32-year-old female with a history of anxiety depression and other behavioral health conditions who presents to emergency room with complaints of pain and swelling to the left upper tooth and apical region. Patient states that she has 2 decayed teeth and has been told for some time that they needed ankle. She does not have dental coverage and has not been able to follow-up to have them hold. She has not had a dental abscess in the past. She denies any nausea or fever. Denies any chance of . There is no drainage. - Related Data Home Medications Medication Instructions Recorded Confirmed Azurette 1 tab PO HS 10/20/11/06/17 Omeprazole [PriLOSEC] 20 mg PO HS 07/03/16 11/06/17 Acetaminophen [Tylenol] 1,000 mg PO Q4-6H PRN 11/06/17 11/06/17 Citalopram Hydrobromide [CeleXA] 10 mg PO HS 11/06/17 11/06/17 lamoTRIgine [LaMICtal] 100 mg PO HS 11/06/17 11/06/17 risperiDONE [RisperDAL] 1 mg PO HS 11/06/17 11/06/17 Previous Rx's Medication Instructions Recorded Acyclovir [Zovirax] 800 mg PO HS #14 tab 11/23/16 Amoxicillin 500 mg PO Q8H 7 Days #21 capsule 12/27/22 traMADol HCl [Ultram] 50 mg PO Q6H PRN 3 Days #12 tab 12/27/22 Allergies Allergy/AdvReac Type Severity Reaction Status Date / Time cat dander Allergy Unknown Verified 12/27/22 09:02 diphenhydramine HCl AdvReac anxiety Verified 12/27/22 09:02 [From Benadryl] environmental Allergy Unknown Uncoded 12/27/22 09:02 Review of Systems ROS Statement: Those systems with pertinent positive or pertinent negative responses have been documented in the HPI. ROS Other: All systems not noted in ROS Statement are negative. Past Medical History Past Medical History: Asthma, GERD/Reflux, Hypertension Additional Past Medical History / Comment(s): Past HTN but not since weight loss, high triglycerides, pancreatitis, ascities, anemia, herpes simplex I. 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 Past Anesthesia/Blood Transfusion Reactions: No Reported Reaction Past Psychological History: Anxiety, Depression Smoking Status: Never smoker Past Alcohol Use History: Occasional Past Drug Use History: Marijuana - Past Family History Father Family Medical History: COPD, Hypertension Additional Family Medical History / Comment(s): Depression. Mother Family Medical History: Hypertension General Exam Limitations: no limitations General appearance: alert, in no apparent distress Head exam: Present: atraumatic Eye exam: Present: normal appearance ENT exam: Present: normal exam Neck exam: Present: normal inspection, full ROM, other (left apical swelling, no well defined abscess or drainage. dental decay throughout) Respiratory exam: Present: normal lung sounds bilaterally Cardiovascular Exam: Present: regular rate Neurological exam: Present: alert, oriented X3, CN II-XII intact Psychiatric exam: Present: normal affect Skin exam: Present: warm, dry Course Vital Signs 12/27/22 09:00 Temperature 98.7 F Pulse Rate 94 Respiratory 18 Rate Blood Pressure 137/93 O2 Sat by Pulse 100 Oximetry - Reevaluation(s) Reevaluation #1: 12/27/22 11:05 patient given pain medication and antibiotic in the ed. will be given a prescription for these medications and I discussed following up with dental services for further management including suspected extraction. Medical Decision Making - Medical Decision Making Was pt. sent in by a medical professional or institution (, PA, BELLSTAND ATTENDANT, urgent care, hospital, or fpc...) When possible be specific @ -[No] Did you speak to anyone other than the patient for history (EMS, parent, family, police, friend...)? What history was obtained from this source @ -Family at the bedside Did you review nursing and triage notes (agree or disagree)? Why? @ -[I reviewed and agree with nursing and triage notes] Were old charts reviewed (outside hosp., previous admission, EMS record, old EKG, old radiological studies, urgent care reports/EKG's, fpc records)? Report findings @ -[No old charts were reviewed] Differential Diagnosis (chest pain, altered mental status, abdominal pain women, abdominal pain men, vaginal bleeding, weakness, fever, dyspnea, syncope, headache, dizziness, GI bleed, back pain, seizure, CVA, palpatations, mental health, musculoskeletal)? @ -Dental decay, dental cavity, dental abscess EKG interpreted by me (3pts min.). @ -[As above] X-rays interpreted by me (1pt min.). @ -[None done] CT interpreted by me (1pt min.). @ -[None done] U/S interpreted by me (1pt. min.). @ -[None done] What testing was considered but not performed or refused? (CT, X-rays, U/S, labs)? Why? @ -[None] What meds were considered but not given or refused? Why? @ -[None] Did you discuss the management of the patient with other professionals (professionals i.e. , PA, BELLSTAND ATTENDANT, lab, RT, psych nurse, social media project manager, educational program director, teacher, accounting officer, case management social worker)? Give summary @ -[No] Was smoking cessation discussed for >3mins.? @ -[No] Was critical care preformed (if so, how long)? @ -[No] Were there social determinants of health that impacted care today? How? (Homelessness, low income, unemployed, alcoholism, drug addiction, transportation, low edu. Level, literacy, decrease access to med. care, residential, rehab)? @ -[No] Was there de-escalation of care discussed even if they declined (Discuss DNR or withdrawal of care, Hospice)? DNR status @ -[No] What co-morbidities impacted this encounter? (DM, HTN, Smoking, COPD, CAD, Cancer, CVA, ARF, Chemo, Hep., AIDS, mental health diagnosis, sleep apnea, morbid obesity)? @ -[None] Was patient admitted / discharged? Hospital course, mention meds given and route, prescriptions, significant lab abnormalities, going to OR and other pertinent info. @ -[Patient's well appearing in the emergency room. She is nontoxic appearing and in no respiratory distress. There is no well-defined abscess that is drainable at this time. She was given pain medicine and antibiotic in the emergency room and will be given a prescription for treatment as an outpatient. I discussed finding up with dental services. Discussed patient's symptoms are And disposition with attending ED physician Dr. Mancini today.] Undiagnosed new problem with uncertain prognosis? @ -[No] Drug Therapy requiring intensive monitoring for toxicity (Heparin, Nitro, Insulin, Cardizem)? @ -[No] Were any procedures done? @ -[No] Diagnosis/symptom? @ -[Left Apical Dental abscess, Dental decay Acute, or Chronic, or Acute on Chronic? @ -[Acute ] Uncomplicated (without systemic symptoms) or Complicated (systemic symptoms)? @ -Uncomplicated] Side effects of treatment? @ -[No] Exacerbation, Progression, or Severe Exacerbation? @ -[No] Poses a threat to life or bodily function? How? (Chest pain, [place], [place], pneumonia, PE, COPD, DKA, ARF, appy, cholecystitis, CVA, Diverticulitis, Homicidal, Suicidal, threat to staff... and all critical care pts) @ -[No] Disposition Clinical Impression: Dental decay, Dental abscess Disposition: HOME SELF-CARE Condition: Good Instructions (If sedation given, give patient instructions): Dental Abscess (ED), Toothache (ED) Prescriptions: Amoxicillin 500 mg PO Q8H 7 Days #21 capsule traMADol HCl [Ultram] 50 mg PO Q6H PRN 3 Days #12 tab PRN Reason: Pain Is patient prescribed a controlled substance at d/c from ED?: Yes When asked, does pt state using other controlled substances?: No If prescribed controlled substance>3 days was MAPS reviewed?: Prescribed <3 Days If opioid is for acute pain is fill amount 7 days or less?: No Referrals: None,Stated [REFERRING] - 1-2 days Time of Disposition: 11:10
[2022-12-27 11:34] VITALS: BP 131/85; PULSE 93
== END 2022-12-27 11:32 | disposition home or self-care (01) ==
LOC: EC 08:53
DX: K04.7 Periapical abscess without sinus (principal); J45.909 Unspecified asthma, uncomplicated; K21.9 Gastro-esophageal reflux disease without esophagitis; I10 Essential (primary) hypertension; F41.9 Anxiety disorder, unspecified; F32.A Depression, unspecified; F12.90 Cannabis use, unspecified, uncomplicated; Z79.899 Other long term (current) drug therapy; Z88.6 Allergy status to analgesic agent; Z88.8 Allergy status to other drugs, medicaments and biological substances
CPT/HCPCS: 99283; 96372; J1885

== ENCOUNTER 2022-12-28 15:42 | Emergency (ER) | payer MEDICARE, OTHER ==
[2022-12-28 16:01] VITALS: RESP 18
--- NOTE | 2022-12-28 16:46 | ED ---
General Adult HPI - General Chief complaint: Dental/Oral Stated complaint: Abscess Tooth L Side Time Seen by Provider: 12/28/22 16:04 Source: patient, RN notes reviewed Mode of arrival: ambulatory Limitations: no limitations - History of Present Illness Initial comments: 32-year-old female presents to the emergency Department with chief complaint of dental pain/infection. Symptoms started on Saturday. She states that she was here yesterday for the same thing and was started on amoxicillin. She states that she has taken 2 doses of her amoxicillin thus far. She reports increased swelling from yesterday. Denies fever, chills. - Related Data Home Medications Medication Instructions Recorded Confirmed Azurette 1 tab PO HS 10/20/14 11/06/17 Omeprazole [PriLOSEC] 20 mg PO HS 07/03/16 11/06/17 Acetaminophen [Tylenol] 1,000 mg PO Q4-6H PRN 11/06/17 11/06/17 Citalopram Hydrobromide [CeleXA] 10 mg PO HS 11/06/17 11/06/17 lamoTRIgine [LaMICtal] 100 mg PO HS 11/06/17 11/06/17 risperiDONE [RisperDAL] 1 mg PO HS 11/06/17 11/06/17 Previous Rx's Medication Instructions Recorded Acyclovir [Zovirax] 800 mg PO HS #14 tab 11/23/16 Amoxicillin 500 mg PO Q8H 7 Days #21 capsule 12/27/22 traMADol HCl [Ultram] 50 mg PO Q6H PRN 3 Days #12 tab 12/27/22 Amoxic-Pot Clav 875-125Mg 1 tab PO Q12HR #14 tab 12/28/22 [Augmentin 875-125] Allergies Allergy/AdvReac Type Severity Reaction Status Date / Time cat dander Allergy Unknown Verified 12/28/22 15:54 diphenhydramine HCl AdvReac anxiety Verified 12/28/22 15:54 [From Benadryl] environmental Allergy Unknown Uncoded 12/28/22 15:54 Review of Systems ROS Statement: Those systems with pertinent positive or pertinent negative responses have been documented in the HPI. ROS Other: All systems not noted in ROS Statement are negative. Past Medical History Past Medical History: Asthma, GERD/Reflux, Hypertension Additional Past Medical History / Comment(s): Past HTN but not since weight loss, high triglycerides, pancreatitis, ascities, anemia, herpes simplex I. 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 Past Anesthesia/Blood Transfusion Reactions: No Reported Reaction Past Psychological History: Anxiety, Depression Smoking Status: Never smoker Past Alcohol Use History: Occasional Past Drug Use History: Marijuana - Past Family History Father Family Medical History: COPD, Hypertension Additional Family Medical History / Comment(s): Depression. Mother Family Medical History: Hypertension General Exam Limitations: no limitations General appearance: alert, in no apparent distress Head exam: Present: atraumatic, normocephalic, normal inspection Eye exam: Present: normal appearance, PERRL, EOMI. Absent: scleral icterus, conjunctival injection, periorbital swelling ENT exam: Present: mucous membranes moist, other (Impacted molars in the left upper dentition) Neck exam: Present: normal inspection, full ROM. Absent: tenderness, meningismus, lymphadenopathy Respiratory exam: Present: normal lung sounds bilaterally. Absent: respiratory distress, wheezes, rales, rhonchi, stridor Cardiovascular Exam: Present: regular rate, normal rhythm, normal heart sounds. Absent: systolic murmur, diastolic murmur, rubs, gallop, clicks Neurological exam: Present: alert, oriented X3 Psychiatric exam: Present: normal affect, normal mood Skin exam: Present: warm, dry, intact, normal color, other (swelling to left cheek ). Absent: rash Course Vital Signs 12/28/22 12/28/22 15:52 16:55 Temperature 97.3 F L 97.9 F Pulse Rate 99 94 Respiratory 18 18 Rate Blood Pressure 120/78 124/72 O2 Sat by Pulse 98 99 Oximetry Medical Decision Making - Medical Decision Making Was pt. sent in by a medical professional or institution (, PA, FORENSIC SERGEANT, urgent care, hospital, or half-way...) When possible be specific @ -No Did you speak to anyone other than the patient for history (EMS, parent, family, police, friend...)? What history was obtained from this source @ -No Did you review nursing and triage notes (agree or disagree)? Why? @ -I reviewed and agree with nursing and triage notes Were old charts reviewed (outside hosp., previous admission, EMS record, old EKG, old radiological studies, urgent care reports/EKG's, half-way records)? Report findings @ -No old charts were reviewed Differential Diagnosis (chest pain, altered mental status, abdominal pain women, abdominal pain men, vaginal bleeding, weakness, fever, dyspnea, syncope, headache, dizziness, GI bleed, back pain, seizure, CVA, palpatations, mental health, musculoskeletal)? @ -dental infection, dental abscess, dental appliance issue, parotiditis, strep throat, this list is not all inclusive EKG interpreted by me (3pts min.). @ -None X-rays interpreted by me (1pt min.). @ -None done CT interpreted by me (1pt min.). @ -None done U/S interpreted by me (1pt. min.). @ -None done What testing was considered but not performed or refused? (CT, X-rays, U/S, labs)? Why? @ -None What meds were considered but not given or refused? Why? @ -None Did you discuss the management of the patient with other professionals (professionals i.e. , PA, FORENSIC SERGEANT, lab, RT, psych nurse, social media designer, senior reactor operator, teacher, radio officer, case management assistant)? Give summary @ -No Was smoking cessation discussed for >3mins.? @ -No Was critical care preformed (if so, how long)? @ -No Were there social determinants of health that impacted care today? How? (Homelessness, low income, unemployed, alcoholism, drug addiction, transportation, low edu. Level, literacy, decrease access to med. care, fci, rehab)? @ -No Was there de-escalation of care discussed even if they declined (Discuss DNR or withdrawal of care, Hospice)? DNR status @ -No What co-morbidities impacted this encounter? (DM, HTN, Smoking, COPD, CAD, Cancer, CVA, ARF, Chemo, Hep., AIDS, mental health diagnosis, sleep apnea, morbid obesity)? @ -None Was patient admitted / discharged? Hospital course, mention meds given and route, prescriptions, significant lab abnormalities, going to OR and other pertinent info. @ -Discharged. Patient presented to emergency department chief complaint of dental pain, infection. She is started on amoxicillin yesterday and has taken 2 doses thus far. She reports that she feels the swelling has worsened today. No drainable abscess visible. Patient given a dose of augmentin and will be switched to Augmentin. She is advised to follow-up with her dentist. Return precautions discussed. Patient agreeable and understanding of plan. Patient stable at time of discharge. Case discussed with Dr. Hanna Undiagnosed new problem with uncertain prognosis? @ -No Drug Therapy requiring intensive monitoring for toxicity (Heparin, Nitro, Insulin, Cardizem)? @ -No Were any procedures done? @ -No Diagnosis/symptom? @ -dental infection Acute, or Chronic, or Acute on Chronic? @ -Acute Uncomplicated (without systemic symptoms) or Complicated (systemic symptoms)? @ -Uncomplicated Side effects of treatment? @ -No Exacerbation, Progression, or Severe Exacerbation? @ -No Poses a threat to life or bodily function? How? (Chest pain, [place], [place], pneumonia, PE, COPD, DKA, ARF, appy, cholecystitis, CVA, Diverticulitis, Homicidal, Suicidal, threat to staff... and all critical care pts) @ -No Disposition Clinical Impression: Dental infection Disposition: HOME SELF-CARE Condition: Stable Instructions (If sedation given, give patient instructions): Dental Abscess (ED), Toothache (ED) Additional Instructions: Please follow up with your dentist. Return to the emergency department for new or worsening symptoms. Prescriptions: Amoxic-Pot Clav 875-125Mg [Augmentin 875-125] 1 tab PO Q12HR #14 tab Is patient prescribed a controlled substance at d/c from ED?: No Referrals: Rimma Gonzalez MD [Primary Care Provider] - 1-2 days
[2022-12-28] MEDS ORDERED: AMOXIC-POT CLAV 875-125MG 1 EACH TAB PO STA (16:49)
[2022-12-28 17:07] VITALS: BP 124/72; PULSE 94; TEMP 97.9
== END 2022-12-28 17:15 | disposition home or self-care (01) ==
LOC: EC 15:42
DX: K04.7 Periapical abscess without sinus (principal); I10 Essential (primary) hypertension; J45.909 Unspecified asthma, uncomplicated; K21.9 Gastro-esophageal reflux disease without esophagitis; F32.A Depression, unspecified; F41.9 Anxiety disorder, unspecified; F12.90 Cannabis use, unspecified, uncomplicated; Z79.899 Other long term (current) drug therapy; Z88.8 Allergy status to other drugs, medicaments and biological substances; Z91.09 Other allergy status, other than to drugs and biological substances; Z90.49 Acquired absence of other specified parts of digestive tract
CPT/HCPCS: 99282

== ENCOUNTER → 2023-06-12 | Outpatient (CLI) | payer MEDICARE | END | disposition home or self-care (01) | LOC: LABWHC1 14:27 | PROVIDERS: ATTEND Family Medicine | DX: N91.2 Amenorrhea, unspecified (principal); R79.89 Other specified abnormal findings of blood chemistry | CPT/HCPCS: 36415; 84702 ==

== ENCOUNTER → 2023-07-26 | Outpatient (CLI) | payer MEDICARE ==
--- NOTE | 2023-07-27 13:14 | CA ---
Transthoracic Echo Report Name: Clari Agustin Age: 32 Gender: F : 1990 Exam Date: 07/26/2023 14:10 Exam Location: [facility] Ht (in): 67 Wt (lb): 225 Ordering Physician: Manav Napoles MD Attending/Referring Phys: Manav Napoles MD Grinder Set Up Operator Thread Franny Gay JAIR Procedure CPT: Indications: R01.1 CARDIAC MURMUR, UNSPECIFIED Cardiac Hx: Technical Quality: Fair Contrast 1: Total Dose (mL): Contrast 2: Total Dose (mL): MEASUREMENTS (Male / Female) Normal Values 2D ECHO LV Diastolic Diameter PLAX 5.0 cm 4.2 - 5.9 / 3.9 - 5.3 cm LV Systolic Diameter PLAX 3.5 cm IVS Diastolic Thickness 1.0 cm 0.6 - 1.0 / 0.6 - 0.9 cm LVPW Diastolic Thickness 1.3 cm 0.6 - 1.0 / 0.6 - 0.9 cm LV Relative Wall Thickness 0.5 RV Internal Dim ED PLAX 3.7 cm LVOT Diameter 1.9 cm LA Volume 91.4 cm??? 18 - 58 / 22 - 52 cm??? LA Volume Index 40.9 cm???/m??? 16 - 28 cm???/m??? M-MODE Aortic Root Diameter MM 3.3 cm LA Systolic Diameter MM 4.4 cm LA Ao Ratio MM 1.3 AV Cusp Separation MM 2.0 cm DOPPLER AV Peak Velocity 209.2 cm/s AV Peak Gradient 17.5 mmHg AV Mean Velocity 144.7 cm/s AV Mean Gradient 9.1 mmHg AV Velocity Time Integral 38.6 cm LVOT Peak Velocity 142.2 cm/s LVOT Peak Gradient 8.1 mmHg LVOT Velocity Time Integral 29.8 cm LVOT Stroke Volume 83.2 cm??? LVOT Stroke Volume Index 39.1 ml/m??? LVOT Cardiac Index 3234.3 cm???/min???m??? AV Area Cont Eq vti 2.2 cm??? AV Area Cont Eq pk 1.9 cm??? MV Area PHT 3.2 cm??? Mitral E Point Velocity 110.6 cm/s Mitral A Point Velocity 162.1 cm/s Mitral E to A Ratio 0.7 MV Deceleration Time 237.9 ms MV E' Velocity 6.9 cm/s Mitral E to MV E' Ratio 16.0 TR Peak Velocity 223.1 cm/s TR Peak Gradient 19.9 mmHg Right Ventricular Systolic Press 23.5 mmHg FINDINGS Left Ventricle Mildly increased left ventricular wall thickness. Left ventricular cavity size normal. Normal left ventricular systolic function with no obvious regional wall motion abnormalities. Left ventricular ejection fraction is estimated at 55-60 %. Right Ventricle Mild right ventricular dilatation. Right ventricular systolic pressure within normal limits. Right Atrium Normal right atrial size. Left Atrium Severely increased left atrial volume. Mildly increased left atrial area. Mitral Valve Structurally normal mitral valve. No mitral stenosis. Mild mitral regurgitation. Aortic Valve Trileaflet aortic valve. No aortic regurgitation. A peak gradient of 18 mmHg and a mean gradient of 9 mmHg was noted through the Aortic valve. Tricuspid Valve Structurally normal tricuspid valve. Mild tricuspid regurgitation. Pulmonic Valve Structurally normal pulmonic valve. Trace pulmonic regurgitation. Pericardium No pericardial effusion. Aorta Normal size aortic root and proximal ascending aorta. CONCLUSIONS Normal LV systolic function Poorly visualized aortic valve with no aortic regurgitation but mild gradient across the aortic valve Mild gradient across the LVOT Previewed by: Dr. Mukul Green MD (Electronically Signed) Final Date: 27 July 2023 13:13
== END | disposition home or self-care (01) ==
LOC: RADECHMAIN 14:04
PROVIDERS: ATTEND Family Medicine
DX: R01.1 Cardiac murmur, unspecified (principal)
CPT/HCPCS: 93306

== ENCOUNTER → 2023-07-31 | Outpatient (CLI) | payer MEDICARE ==
[2023-07-31 18:18] LABS: Basophils # (A) 0.03 X 10*3/uL (0.00-0.10); Basophils % (A) 0.4 %; Eosinophils # (A) 0.13 X 10*3/uL (0.04-0.35); Eosinophils % (A) 1.8 %; HCT 35.1 % (37.2-46.3); HGB 12.3 g/dL (12.0-15.0); Lymphocytes % (A) 25.4 %; MCH 33.8 pg (27.0-32.0); MCV 96.4 FL (80.0-97.0); Mean Platelet Volume 9.8 FL (9.5-12.2); Monocytes # (A) 0.35 X 10*3/uL (0.20-1.00); Monocytes % (A) 4.9 %; NRBC Per 100 WBC 0 X 10*3/uL (0.00-0.01); Neutrophils # (A) 4.74 X 10*3/uL (1.80-7.70); Neutrophils % (A) 67.1 %; Platelet Count 226 X 10*3/uL (140-440); RBC 3.64 X 10*6/uL (4.10-5.20); RDW 11.7 % (11.5-14.5); WBC 7.08 X 10*3/uL (4.50-10.00)
[2023-07-31 18:34] LABS: ALT 13 U/L (8-44); AST 13 U/L (13-35); Albumin 3.7 g/dL (3.8-4.9); Albumin/Globulin Ratio 1.76 Ratio (1.60-3.17); Alkaline Phosphatase 33 U/L (41-126); Blood Urea Nitrogen 8.4 mg/dL (9.0-27.0); Calcium 9.3 mg/dL (8.7-10.3); Carbon Dioxide 20.4 mmol/L (21.6-31.8); Chloride 106 mmol/L (96-109); Globulin 2.1 g/dL (1.6-3.3); Glucose 92 mg/dL (70-110); Potassium 3.9 mmol/L (3.5-5.5); Sodium 138 mmol/L (135-145); Total Bilirubin 0.3 mg/dL (0.3-1.2); Total Protein 5.8 g/dL (6.2-8.2)
== END | disposition home or self-care (01) ==
LOC: LABWHC1 10:43
PROVIDERS: ATTEND Family Medicine
DX: Z33.1 Pregnant state, incidental (principal); I10 Essential (primary) hypertension; F31.81 Bipolar II disorder; F60.3 Borderline personality disorder; E78.1 Pure hyperglyceridemia; I51.7 Cardiomegaly; I37.1 Nonrheumatic pulmonary valve insufficiency
CPT/HCPCS: 36415; 80053; 84443; 85025

== ENCOUNTER → 2023-08-06 | Outpatient (CLI) | payer MEDICARE, OTHER ==
[2023-08-06 14:46] LABS: Chol/HDL Ratio 3.01 Ratio; T4, Free (Free Thyroxine) 1.11 ng/dL (0.80-1.80)
== END | disposition home or self-care (01) ==
LOC: LABWHC1 11:50
PROVIDERS: ATTEND Family Medicine
DX: E78.1 Pure hyperglyceridemia (principal); R94.6 Abnormal results of thyroid function studies
CPT/HCPCS: 36415; 80061; 84439; 84443; 84481

== ENCOUNTER → 2023-08-15 | Outpatient (CLI) | payer MEDICARE ==
[2023-08-15 14:25] LABS: Creatinine,Urine Random 123.6 mg/dL; Protein/Creatinine Ratio,Urine 0.081
[2023-08-15 18:15] LABS: Basophils # (A) 0.02 X 10*3/uL (0.00-0.10); Basophils % (A) 0.3 %; Eosinophils # (A) 0.11 X 10*3/uL (0.04-0.35); Eosinophils % (A) 1.8 %; HCT 33.6 % (37.2-46.3); HGB 11.3 g/dL (12.0-15.0); Lymphocytes # (A) 1.13 X 10*3/uL (0.90-5.00); Lymphocytes % (A) 18.9 %; MCH 33.4 pg (27.0-32.0); MCHC 33.6 g/dL (32.0-37.0); MCV 99.4 FL (80.0-97.0); NRBC Per 100 WBC 0 X 10*3/uL (0.00-0.01); Neutrophils # (A) 4.41 X 10*3/uL (1.80-7.70); Neutrophils % (A) 73.7 %; Platelet Count 201 X 10*3/uL (140-440); RBC 3.38 X 10*6/uL (4.10-5.20); RDW 12.3 % (11.5-14.5); WBC 5.99 X 10*3/uL (4.50-10.00)
[2023-08-15 19:33] LABS: % Iron Saturation 26.47 (12.00-45.00); ALT 12 U/L (8-44); AST 13 U/L (13-35); Albumin 3.6 g/dL (3.8-4.9); Albumin/Globulin Ratio 1.89 Ratio (1.60-3.17); Alkaline Phosphatase 32 U/L (41-126); BUN/Creat Ratio 15.67 Ratio (12.00-20.00); Blood Urea Nitrogen 9.4 mg/dL (9.0-27.0); Calcium 8.9 mg/dL (8.7-10.3); Carbon Dioxide 20.2 mmol/L (21.6-31.8); Chloride 107 mmol/L (96-109); Globulin 1.9 g/dL (1.6-3.3); Glucose 141 mg/dL (70-110); Iron 99 UG/DL (50-170); Potassium 4.1 mmol/L (3.5-5.5); Sodium 139 mmol/L (135-145); T4, Free (Free Thyroxine) 1.01 ng/dL (0.80-1.80); Total Bilirubin 0.3 mg/dL (0.3-1.2); Total Iron Binding Capacity 374 UG/DL (228-460); Total Protein 5.5 g/dL (6.2-8.2)
== END | disposition home or self-care (01) ==
LOC: LABWHC1 12:01
PROVIDERS: ATTEND Advanced Practice Midwife
DX: O16.9 Unspecified maternal hypertension, unspecified trimester (principal); Z98.84 Bariatric surgery status; Z3A.00 Weeks of gestation of pregnancy not specified
CPT/HCPCS: 36415; 80053; 82306; 82570; 82607; 82728; 82746; 83036; 83540; 83550; 84156; 84439; 84443; 85025; 86850; 86900; 86901

== ENCOUNTER → 2023-09-16 | Outpatient (CLI) | payer MEDICARE, OTHER ==
[2023-09-16 17:35] LABS: T4, Free (Free Thyroxine) 0.95 ng/dL (0.80-1.80)
== END | disposition home or self-care (01) ==
LOC: LABWHC1 11:49
PROVIDERS: ATTEND Internal Medicine
DX: R79.89 Other specified abnormal findings of blood chemistry (principal)
CPT/HCPCS: 36415; 84439; 84443; 84481; 86376

== ENCOUNTER → 2023-10-01 | Outpatient (CLI) | payer MEDICARE, OTHER | END | disposition home or self-care (01) | LOC: LABPRL 10:30 | PROVIDERS: ATTEND Family Medicine | DX: O13.3 Gestational [pregnancy-induced] hypertension without significant proteinuria, third trimester (principal); E78.1 Pure hyperglyceridemia; Z3A.00 Weeks of gestation of pregnancy not specified | CPT/HCPCS: 80053; 80061 ==

== ENCOUNTER → 2023-12-02 | Outpatient (CLI) | payer MEDICARE, OTHER ==
[2023-12-02 14:17] LABS: Glucose 3 Hour, Gest 51 mg/dL
== END | disposition home or self-care (01) ==
LOC: LABWHC1 09:24
DX: O99.810 Abnormal glucose complicating pregnancy (principal)
CPT/HCPCS: 36415; 82951; 82952

== ENCOUNTER 2024-01-13 10:07 | Observation (INO) | payer MEDICARE, OTHER ==
[2024-01-13 11:23] LABS: Basophils % (A) 1 %; Eosinophils # (A) 0.2 k/uL (0-0.7); Eosinophils % (A) 2 %; HCT 32.2 % (34.0-46.0); HGB 10.7 gm/dL (11.4-16.0); Lymphocytes % (A) 23 %; MCHC 33.3 g/dL (31.0-37.0); Monocytes # (A) 0.4 k/uL (0-1.0); Monocytes % (A) 4 %; Neutrophils # (A) 6.1 k/uL (1.3-7.7); Neutrophils % (A) 69 %; Platelet Count 228 k/uL (150-450); RBC 3.46 m/uL (3.80-5.40); RDW 12.8 % (11.5-15.5); WBC 8.8 k/uL (3.8-10.6)
[2024-01-13 11:27] LABS: ALT 15 U/L (4-34); AST 17 U/L (14-36); African American GFR (CKD) >90 (>60 ml/min/1.73 sqM); Blood Urea Nitrogen 15 mg/dL (7-17); LDH 149 U/L (120-246); Non-African American GFR(CKD) >90 (>60 ml/min/1.73 sqM); Uric Acid 6.2 mg/dL (3.7-7.4)
[2024-01-13 11:31] LABS: Creatinine,Urine Random 172.8 mg/dL
[2024-01-13 11:40] LABS: Creatinine,Urine Random 172.8 mg/dL; Protein/Creatinine Ratio,Urine 0.035
[2024-01-13 11:55] LABS: Appearance,Urine Cloudy (Clear); Bacteria,Urine Moderate /hpf; Bilirubin,Urine Negative (Negative); Blood,Urine Negative (Negative); Color,Urine Yellow; Glucose,Urine (UA) Negative (Negative); Ketones,Urine Negative (Negative); Leukocyte Esterase,Urine Negative (Negative); Mucus,Urine Moderate /hpf; Nitrite,Urine Negative (Negative); Protein,Urine Trace (Negative); RBC,Urine 2 /hpf (0-5); Specific Gravity,Urine 1.023 (1.001-1.035); Squamous Epithelial Cell,Urine 14 /hpf (0-4); WBC,Urine 2 /hpf (0-5)
[2024-01-13] MEDS: LACTATED RINGERS 1,000 ML IV SCH (14:10)
[2024-01-13] MEDS: ACETAMINOPHEN IV (For NPO) 1,000 MG in EMPTY BAG 1 BAG IVPB ONE (14:17)
--- NOTE | 2024-01-13 18:56 | P.HPOB ---
History of Present Illness H&P Date: 01/13/24 Chief Complaint: IUP at 35-2/7 weeks, headache This is a 33-year-old 2 para 1 at 35-2/7 weeks, estimated due date of 1228 that presents to labor and delivery with complaints of headache and elevated blood pressure. She states she did take Tylenol this morning with m inimal relief of her headache. Patient does receive care at an outside facility. Patient states she was placed on Procardia 6D milligrams for gestational hypertension. Blood pressures on arrival 140s over 90s. Patient is due for her Procardia dose. In addition patient states she is being "watched" for cholestasis of and was placed on hydroxyzine for urticaria. Patient does note good movement. She notes an occasional contraction. On blood work she has a blood type of a positive, RPR nonreactive, hepatitis B surface engine negative rubella immune, HCV negative, HIV negative Review of Systems Constitutional: Denies chills, Denies fatigue, Denies fever Ears, nose, mouth and throat: Denies headache Cardiovascular: Reports leg edema Respiratory: Denies dyspnea Gastrointestinal: Denies nausea, Denies vomiting Genitourinary: Reports Past Medical History Past Medical History: Asthma, GERD/Reflux, Hypertension Additional Past Medical History / Comment(s): Past HTN but not since weight loss, high triglycerides, pancreatitis, ascities, anemia, herpes simplex I. 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 Past Anesthesia/Blood Transfusion Reactions: No Reported Reaction Past Psychological History: Anxiety, Depression Additional Psychological History / Comment(s): Pt reside with her family. She has a 12 yr old son. Pt drives. Pt states she had been thinking of different ways to kill herself. She went to her sister and told her she needed help. Pt has hx of self cutting and recently cut her upper legs. She has had several [facility] admissions. She last tried to commit suicide 08/01/16 with overdosing on seroquel. She states she had years ago also attempted suicide by cutting her wrists. 01/13/24 Pt reports feeling safe at home and currently lives with her son. Pt denies any suicidal thoughts or thoughts of harming herself. Smoking Status: Former smoker, Never smoker Past Alcohol Use History: Occasional Additional Past Alcohol Use History / Comment(s): Pt started smoking in 2003 and quit in 2009. - Past Family History Father Family Medical History: COPD, Hypertension Additional Family Medical History / Comment(s): Depression. Mother Family Medical History: Hypertension Medications and Allergies Home Medications Medication Instructions Recorded Confirmed Type Omeprazole [PriLOSEC] 20 mg PO HS 07/03/16 01/13/24 History Acyclovir [Zovirax] 800 mg PO HS #14 tab 11/23/16 01/13/24 Rx Acetaminophen [Tylenol] 1,000 mg PO Q4-6H PRN 11/06/17 01/13/24 History Aspirin [Adult Low Dose Aspirin EC] 162 mg PO DAILY 01/13/24 01/13/24 History Cholecalciferol (Vitamin D3) 125 mcg PO DAILY 01/13/24 01/13/24 History [Vitamin D3 (125 MCG = 5,000 IU)] Cyanocobalamin (Vitamin B-12) 1,000 mcg PO DAILY 01/13/24 01/13/24 History [Vitamin B-12] NIFEdipine [NIFEdipine ER 60 mg PO DAILY 01/13/24 01/13/24 History (Osmotic)] Vit No.179/Iron/Folic 1 each PO DAILY 01/13/24 01/13/24 History [ Tablet] hydrOXYzine HCL [Atarax] 50 mg PO QID 01/13/24 01/13/24 History Allergies Allergy/AdvReac Type Severity Reaction Status Date / Time cat dander Allergy Unknown Verified 01/13/24 10:18 diphenhydramine HCl AdvReac anxiety Verified 01/13/24 10:18 [From Benadryl] environmental Allergy Unknown Uncoded 01/13/24 10:18 Exam Osteopathic Statement: *. No significant issues noted on an osteopathic structural exam other than those noted in the History and Physical/Consult. Vital Signs Temp Pulse Resp BP Pulse Ox 01/13/24 14:16 97.4 F L 89 16 137/83 01/13/24 10:17 97.4 F L 85 16 145/90 97 Intake and Output 1101/13/24 01/13/24 06:59 14:59 22:59 Other: Weight 114.759 kg Physical exam is performed this date General Is well-nourished well-developed female in no acute distress, resting comfortably in bed. Patient appears well, breathing is nonlabored, abdomen is gravid soft nontender cervical exam per RN is closed and thick heart tones are noted to be category 1 and she is laurie irregularly. Results Result Diagrams: 01/13/24 11:00 01/13/24 11:00 Abnormal Lab Results - Last 24 Hours (Table) 01/13/24 01/13/24 Range/Units 10:32 11:00 RBC 3.46 L (3.80-5.40) m/uL Hgb 10.7 L (11.4-16.0) gm/dL Hct 32.2 L (34.0-46.0) % Urine Appearance Cloudy H (Clear) Urine Protein Trace H (Negative) Ur Squamous Epith Cells 14 H (0-4) /hpf Urine Bacteria Moderate H (None) /hpf Urine Mucus Moderate H (None) /hpf Assessment and Plan (1) 35 weeks gestation of Narrative/Plan: NST every shift Current Visit: Yes Status: Acute Code(s): Z3A.35 - 35 WEEKS GESTATION OF SNOMED Code(s): 30521532 (2) Chronic hypertension Narrative/Plan: Stable on Procardia, given headache today will follow blood pressures closely through the night, negative preeclampsia labs. Current Visit: Yes Status: Acute Code(s): I10 - ESSENTIAL (PRIMARY) HYPERTENSION SNOMED Code(s): 57587097 Plan: 33-year-old G2, P1 at 35-2/7 weeks with complaints of headache. Patient initially had elevated blood pressures 140s to 150s over 80s, patient was due for her Procardia dose. Patient resumed her Procardia blood pressures 130s over 70s to 80s. Patient states her headache is improved after IV Ofirmev. Will continue to monitor overnight if blood pressures remain stable we will plan discharge home and follow-up with her provider.
--- NOTE | 2024-01-13 19:16 | P.MSEPDOC ---
Presenting Problems - Arrival Data Date of Arrival on Unit: 01/13/24 Time of Arrival on Unit: 10:07 Mode of Transport: Ambulatory - Complaint OB-Reason for Admission/Chief Complaint: Headache, Elevated Blood Pressure Medical History - Information : 2 Para: 1 Term: 1 : 0 Abortions: Spontaneous or Elective: 0 Number of Living Children: 1 - Gestational Age Gestational Age by JANINE (wks/days): 35 Weeks and 2 Days Review of Systems - Review of Systems Constitutional: No problems Breast: No problems ENT: No problems Cardiovascular: No problems Respiratory: No problems Gastrointestinal: No problems Genitourinary: No problems Musculoskeletal: No problems Neurological: No problems Skin: No problems Vital Signs - Temperature Temperature: 97.4 F Temperature Source: Temporal Artery Scan - Pulse Right Brachial Pulse Rate: 89 Pulse Assessment Method: Automatic Cuff - Respirations Respiratory Rate: 16 Oxygen Delivery Method: Room Air - Blood Pressure Right Arm Blood Pressure: 137/83 Blood Pressure Mean: 101 Blood Pressure Source: Automatic Cuff Medical Screen Scoring - Cervical Exam Dilation (cm): 0 - Uterine Contractions Frequency From (mins): 2 Frequency To (mins): 6 Duration From (seconds): 50 Duration To (seconds): 70 Intensity: Mild Resting: Soft to palpation - Assessment - Baby A Baseline FHR: 150 Heart Rate - NICHD Category: Category I (Normal) NST: Reactive Physician Notification - Physician Notified Physician Notified Date: 01/13/24 Physician Notified Time: 13:35 Physician: Leia Heard New Order Received: Yes - Notification Comment Comment: Dr. Heard called and given update on pt. Orders received to admit pt for OBV r/t BPs. Pt may have Ofirmev for h/a. will be over to talk with pt. Maternal Triage Index - Urgent/Priority 2 Urgent Priority 2: Yes Provider Notified: Leia Heard Provider Notified Time: 10:31 Criteria Met for Priority 2: Dr. Heard in dept. Report given on pt. Pt c/o. VS readback. Orders received to collect and send PIH labs and perform serial BPs. To call with results. Disposition - Disposition OB Disposition: Admit, LDRP Suite I agree with the RN Medical Screening Exam: Yes Case reviewed; plan agreed upon as documented in EMR&OBIX.: Yes Diagnosis: HEADACHE, UNSPECIFIED
[2024-01-13] MEDS: ACETAMINOPHEN TAB 500 MG TAB PO STA (23:55)
[2024-01-14 01:01] VITALS: PULSE 80
[2024-01-14 05:03] VITALS: BP 134/63; RESP 16; TEMP 97.5
--- NOTE | 2024-01-14 08:45 | P.DS ---
Providers Date of admission: 01/13/24 14:12 Expected date of discharge: 01/14/24 Attending physician: Leia Heard Primary care physician: Stated None - Discharge Diagnosis(es) (1) 35 weeks gestation of Current Visit: Yes Status: Acute (2) Chronic hypertension Current Visit: Yes Status: Acute Hospital Course: 33-year-old G2, P1 at 35+ weeks that presented yesterday afternoon with complaints of headache and elevated blood pressure at home, 140s over 90s. Patient does receive care at an outside facility. Patient is on Procardia 60 mg daily for chronic hypertension. Patient was observed through the night, negative preeclampsia labs were noted, blood pressures 1 teens to 130s over 70s. Patient is without complaints this morning. Patient continues to note good movement, occasional Terrell De Leon. Denies vaginal bleeding or loss of fluid. NST noted to be category 1. Patient Condition at Discharge: Good Plan - Discharge Summary New Discharge Prescriptions: No Action Omeprazole [PriLOSEC] 20 mg PO HS Acyclovir [Zovirax] 800 mg PO HS #14 tab Acetaminophen [Tylenol] 1,000 mg PO Q4-6H PRN PRN Reason: Pain Or Fever > 100.5 hydrOXYzine HCL [Atarax] 50 mg PO QID Aspirin [Adult Low Dose Aspirin EC] 162 mg PO DAILY NIFEdipine [NIFEdipine ER (Osmotic)] 60 mg PO DAILY Cholecalciferol (Vitamin D3) [Vitamin D3 (125 MCG = 5,000 IU)] 125 mcg PO DAILY Vit No.179/Iron/Folic [ Tablet] 1 each PO DAILY Cyanocobalamin (Vitamin B-12) [Vitamin B-12] 1,000 mcg PO DAILY Discharge Medication List Omeprazole [PriLOSEC] 20 mg PO HS 07/03/16 [History] Acyclovir [Zovirax] 800 mg PO HS #14 tab 11/23/16 [Rx] Acetaminophen [Tylenol] 1,000 mg PO Q4-6H PRN 11/06/17 [History] Aspirin [Adult Low Dose Aspirin EC] 162 mg PO DAILY 01/13/24 [History] Cholecalciferol (Vitamin D3) [Vitamin D3 (125 MCG = 5,000 IU)] 125 mcg PO DAILY 01/13/24 [History] Cyanocobalamin (Vitamin B-12) [Vitamin B-12] 1,000 mcg PO DAILY 01/13/24 [History] NIFEdipine [NIFEdipine ER (Osmotic)] 60 mg PO DAILY 01/13/24 [History] Vit No.179/Iron/Folic [ Tablet] 1 each PO DAILY 01/13/24 [History] hydrOXYzine HCL [Atarax] 50 mg PO QID 01/13/24 [History] Discharge Disposition: HOME SELF-CARE
== END 2024-01-14 08:55 | disposition home or self-care (01) ==
LOC: FBPOP 10:07 → 4FBP 14:12
PROVIDERS: ADMIT Obstetrics & Gynecology Obstetrics; ATTEND Obstetrics & Gynecology Obstetrics
DX: O16.3 Unspecified maternal hypertension, third trimester (principal); Z3A.35 35 weeks gestation of pregnancy; O99.343 Other mental disorders complicating pregnancy, third trimester; O47.03 False labor before 37 completed weeks of gestation, third trimester; O99.513 Diseases of the respiratory system complicating pregnancy, third trimester; J45.909 Unspecified asthma, uncomplicated; K21.9 Gastro-esophageal reflux disease without esophagitis; Z91.51 Personal history of suicidal behavior; Z79.82 Long term (current) use of aspirin; Z79.899 Other long term (current) drug therapy; Z87.891 Personal history of nicotine dependence; Z82.49 Family history of ischemic heart disease and other diseases of the circulatory system
CPT/HCPCS: 59025; 96365; 96366; 86900; 86901; 82570; 84156; 82565; 83615; 84450; 84460; 84520; 84550; 85025; 86850; 81001; G0463; J0131; 99213

== ENCOUNTER 2024-02-03 10:49 | Inpatient (IN) | payer MEDICARE, OTHER ==
[2024-02-03] MEDS: hydrALAZINE HCL 20 MG/ML 1 ML VIAL IVP PRN ×2 (11:25→11:50)
[2024-02-03] MEDS: LACTATED RINGERS 1,000 ML IV SCH (11:31)
[2024-02-03] MEDS: LABETALOL 5 MG/ML VIAL MDV IVP PRN ×2 (12:14→12:31)
[2024-02-03] MEDS: hydrALAZINE HCL 20 MG/ML 1 ML VIAL IVP STA (13:31)
[2024-02-03] MEDS: NIFEdipine 10 MG CAP PO STA (13:47)
[2024-02-03 14:41] LABS: Basophils % (A) 0 %; Eosinophils # (A) 0.5 k/uL (0-0.7); Eosinophils % (A) 6 %; HCT 21.7 % (34.0-46.0); Lymphocytes # (A) 1.8 k/uL (1.0-4.8); Lymphocytes % (A) 23 %; MCH 30.3 pg (25.0-35.0); MCHC 31.6 g/dL (31.0-37.0); MCV 95.7 fL (80.0-100.0); Mean Platelet Volume 8.8; Monocytes # (A) 0.3 k/uL (0-1.0); Monocytes % (A) 4 %; Neutrophils # (A) 5.2 k/uL (1.3-7.7); Neutrophils % (A) 65 %; Platelet Count 305 k/uL (150-450); RBC 2.27 m/uL (3.80-5.40); RDW 14.2 % (11.5-15.5); WBC 7.9 k/uL (3.8-10.6)
[2024-02-03 14:48] LABS: ALT 18 U/L (4-34); AST 19 U/L (14-36); African American GFR (CKD) >90 (>60 ml/min/1.73 sqM); Albumin 2.5 g/dL (3.5-5.0); Alkaline Phosphatase 64 U/L (38-126); Anion Gap 5 mmol/L; Blood Urea Nitrogen 16 mg/dL (7-17); Calcium 8.4 mg/dL (8.4-10.2); Carbon Dioxide 22 mmol/L (22-30); Chloride 111 mmol/L (98-107); Glucose 79 mg/dL (74-99); Non-African American GFR(CKD) 89 (>60 ml/min/1.73 sqM); Potassium 4.4 mmol/L (3.5-5.1); Sodium 138 mmol/L (137-145); Total Bilirubin 0.4 mg/dL (0.2-1.3); Total Protein 4.9 g/dL (6.3-8.2)
[2024-02-03 14:49] LABS: HGB 6.9 gm/dL (11.4-16.0)
--- NOTE | 2024-02-03 15:13 | P.CONS ---
History of Present Illness - Reason for Consult Consult date: 02/03/24 - History of Present Illness Patient is a 33-year-old female 2 para 1 who presented to the ED on 01/13/2024 with headache and elevated blood pressure readings, her estimated due date was 02/14. Patient was started on Procardia 60 mg for gestational hypertension, her initial blood pressure on arrival was 140/90. Patient was also started on hydroxyzine for urticaria and was watched for cholestasis of p regnancy. At that time patient was given her home Procardia dose that she was due for, headache improved after IV Ofirmev, blood pressure improved. She was discharged home, lab work was negative for preeclampsia.Patient was taken for emergency on 01/27, she also reported placental abruption, she delivered a healthy baby girl who is doing well right now. She stated that she has been on high doses of labetalol, continued on Procardia after delivery, she was then discharged on the on labetalol 200 twice daily, not sure why. Her primary care provider recommended her to go up on labetalol dose to 800 what she did and did not notice improvement in her blood pressure as well as headache. She however denies vision changes, dizziness, lightheadedness. Admits shortness of breath and bilateral lower extremity swelling that has not improved and in fact got somewhat worse after delivery, she states that she has not lost any weight as well. IM service was consulted for preeclampsia management. Patient's blood pressure on 02/02 was noted to be in 199/101 highest, 169/90 lowest.Patient received hydralazine total of 20 mg, labetalol 60 mg, 10 mg of p.o. nifedipine, blood pressure improved to 130s over 80s Pertinent positives and negatives as discussed in HPI, a complete review of systems was performed and all other systems are negative. Patient seen and examined at bedside. She complains of headache, some SOB, no chest pain, dizziness, lightheadedness, no vision changes, urine production changes. Vital signs reviewed General: nontoxic, no distress, appears at stated age Derm: warm, dry Head: atraumatic, normocephalic, symmetric Eyes: EOMI, no lid lag, anicteric sclera, pupils equal round reactive to light ENT: Nose and ears atraumatic Neck: No thyromegaly, supple Mouth: no lip lesion, mucus membranes moist Cardiovascular: S1S2 reg, no murmur, no edema Lungs: clear to auscultation bilateral, no rhonchi, no rales, no wheeze, no accessory muscle use Abdominal: soft, mild tenderness at the site of incision, no guarding, no appreciable organomegaly Ext: no gross muscle atrophy, muscle strength muscle strength 5 out of 5 in all 4 extremities, no contractures, bilateral LE swelling up to the knees Neuro: CN II-XII grossly intact Psych: Alert, oriented, appropriate affect Assessment/Plan: Preeclampsia hx of Hypertension of -Resume Procardia 60 daily -Labetalol 300 twice daily p.o. -Labetalol IV as needed -Ordered CMP, CBC, UA, chest x-ray, COVID swab -Monitor blood pressure and adjust medications accordingly -will consider Lasix , currently on IV fluids per primary team, would recommend to encourage oral intake instead should Cr be stable -seizure precautions, no indications for Mg since patient is 6 days unless patient has new neuro symptoms Acute blood loss anemia likely in the settings of recent Status post 01/28/2024 -Transfuse 1 unit of PRBC, recheck CBC after transfusion, CBC daily, ACID BLOWER exam per primary team Past Medical History Past Medical History: Asthma, GERD/Reflux, Hypertension Additional Past Medical History / Comment(s): Past HTN but not since weight loss, high triglycerides, pancreatitis, ascities, anemia, herpes simplex I. 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 Past Anesthesia/Blood Transfusion Reactions: No Reported Reaction Past Psychological History: Anxiety, Depression Additional Psychological History / Comment(s): Pt reside with her family. She has a 12 yr old son. Pt drives. Pt states she had been thinking of different ways to kill herself. She went to her sister and told her she needed help. Pt has hx of self cutting and recently cut her upper legs. She has had several [facility] admissions. She last tried to commit suicide 08/01/16 with overdosing on seroquel. She states she had years ago also attempted suicide by cutting her wrists. 01/13/24 Pt reports feeling safe at home and currently lives with her son. Pt denies any suicidal thoughts or thoughts of harming herself. Smoking Status: Former smoker Past Alcohol Use History: Occasional Additional Past Alcohol Use History / Comment(s): Pt started smoking in 2003 and quit in 2009. Past Drug Use History: Marijuana Additional Drug Use History / Comment(s): Pt states she will occasionally smoke marijuana. - Past Family History Father Family Medical History: COPD, Hypertension Additional Family Medical History / Comment(s): Depression. Mother Family Medical History: Hypertension Medications and Allergies Home Medications Medication Instructions Recorded Confirmed Type Omeprazole [PriLOSEC] 20 mg PO HS 07/03/16 02/03/24 History Acyclovir [Zovirax] 800 mg PO HS #14 tab 11/23/16 02/03/24 Rx Acetaminophen [Tylenol] 1,000 mg PO Q4-6H PRN 11/06/17 02/03/24 History Aspirin [Adult Low Dose Aspirin EC] 162 mg PO DAILY 01/13/24 02/03/24 History Allergies Allergy/AdvReac Type Severity Reaction Status Date / Time cat dander Allergy Unknown Verified 02/03/24 11:10 diphenhydramine HCl AdvReac anxiety Verified 02/03/24 11:10 [From Benadryl] environmental Allergy Unknown Uncoded 01/28/24 10:35 Physical Exam Vitals: Vital Signs Temp Pulse Resp BP Pulse Ox 02/03/24 13:10 65 178/90 02/03/24 12:47 64 178/90 02/03/24 12:29 74 169/90 95 02/03/24 12:12 56 L 187/93 02/03/24 11:49 62 199/101 02/03/24 11:24 61 193/92 02/03/24 11:18 59 L 192/94 02/03/24 11:13 57 L 193/99 02/03/24 11:03 55 L 191/91 02/03/24 10:58 97.7 F 59 L 17 190/92 97 Intake and Output 02/02/24 02/03/24 02/03/24 22:59 06:59 14:59 Other: # Voids 1 Weight 116.12 kg Results CBC & Chem 7: 02/03/24 14:21 02/03/24 14:21
[2024-02-03] MEDS: ACETAMINOPHEN TAB 500 MG TAB PO PRN (15:40)
[2024-02-03 16:24] LABS: Appearance,Urine Clear (Clear); Bilirubin,Urine Negative (Negative); Blood,Urine Trace (Negative); Color,Urine Colorless; Glucose,Urine (UA) Negative (Negative); Ketones,Urine Negative (Negative); Leukocyte Esterase,Urine Negative (Negative); Nitrite,Urine Negative (Negative); Protein,Urine Negative (Negative); RBC,Urine <1 /hpf (0-5); Specific Gravity,Urine 1.005 (1.001-1.035); Squamous Epithelial Cell,Urine 1 /hpf (0-4); Urobilinogen,Urine <2.0 mg/dL (<2.0)
--- NOTE | 2024-02-03 16:25 | XR ---
2 view chest HISTORY: Shortness of breath COMPARISON: 02/12/2015 TECHNIQUE: PA and lateral views chest obtained. FINDINGS: There is no lung consolidation. There is mild interstitial density particularly in the lung bases and suggests a mild fluid in the fi ssures. The findings raise question of mild pulmonary edema secondary to CHF or volume overload. Clin ical correlation is recommended. There is no pleural effusion or pneumothorax. The heart, mediastinum and max are within normal limits. The osseous structures and soft tissues of the thorax are intact. IMPRESSION: Findings there is a question of mild interstitial edema as described above. [facility], , 02/03/2024 4:22 PM
--- NOTE | 2024-02-03 17:40 | P.HPOB ---
History of Present Illness H&P Date: 02/03/24 Chief Complaint: Elevated blood pressures Ms. Agustin is a 33 year old POD#6 s/p repeat section for pre- eclampsia with severe features that required Magnesium Sulfate prophylaxis. Her section was complicated by a placental abruption and hemorrhage. She likely has chronic hypertension, for which she was started on procardia 60mg in the first trimester. She was also taking hydroxyzine during her due to pruritus and was watched closely for ICP. On arrival, blood pressure was 199/101 at the highest. Patient is status post 20mg of IV hydralazine, 60mg of IV labetalol, and 10mg of PO Nifedipine for acute management of BPs which did decrease to 130/80. The patient complained of a 10/10 headache upon arrival, for which she was given IV Ofirmev with improvement to 7/10. The patient denies visual disturbances and RUQ pain. She does have some shortness of breath and has a recent COVID exposure. The patient does endorse lightheadedness with ambulation and is found to have a hemoglobin of 6.9. IM service was consulted for BP management and the also ordered a unit of pRBCs for the patient for symptomatic anemia. OBGYN history: 1 FTCS in 2004 for male infant, 10# secondary to HSV outbreak Past medical history: HSV, Vitamin D deficiency Past surgical history: Gastric sleeve, cholecystectomy, left oophorectomy for torsion, section x2, hernia repair, adenoindectomy Allergies: benadryl Social history: negative x3 Past Medical History Past Medical History: Asthma, GERD/Reflux, Hypertension Additional Past Medical History / Comment(s): Past HTN but not since weight loss, high triglycerides, pancreatitis, ascities, anemia, herpes simplex I. 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 Past Anesthesia/Blood Transfusion Reactions: No Reported Reaction Past Psychological History: Anxiety, Depression Additional Psychological History / Comment(s): Pt reside with her family. She has a 12 yr old son. Pt drives. Pt states she had been thinking of different ways to kill herself. She went to her sister and told her she needed help. Pt has hx of self cutting and recently cut her upper legs. She has had several [facility] admissions. She last tried to commit suicide 08/01/16 with overdosing on seroquel. She states she had years ago also attempted suicide by cutting her wrists. 01/13/24 Pt reports feeling safe at home and currently lives with her son. Pt denies any suicidal thoughts or thoughts of harming herself. Smoking Status: Former smoker Past Alcohol Use History: Occasional Additional Past Alcohol Use History / Comment(s): Pt started smoking in 2003 and quit in 2009. Past Drug Use History: Marijuana Additional Drug Use History / Comment(s): Pt states she will occasionally smoke marijuana. - Past Family History Father Family Medical History: COPD, Hypertension Additional Family Medical History / Comment(s): Depression. Mother Family Medical History: Hypertension Medications and Allergies Home Medications Medication Instructions Recorded Confirmed Type Omeprazole [PriLOSEC] 20 mg PO HS 07/03/16 02/03/24 History Acyclovir [Zovirax] 800 mg PO HS #14 tab 11/23/16 02/03/24 Rx Acetaminophen [Tylenol] 1,000 mg PO Q4-6H PRN 11/06/17 02/03/24 History Aspirin [Adult Low Dose Aspirin EC] 162 mg PO DAILY 01/13/24 02/03/24 History Allergies Allergy/AdvReac Type Severity Reaction Status Date / Time cat dander Allergy Unknown Verified 02/03/24 11:10 diphenhydramine HCl AdvReac anxiety Verified 02/03/24 11:10 [From Benadryl] environmental Allergy Unknown Uncoded 01/28/24 10:35 Exam Vital Signs Temp Pulse Resp BP Pulse Ox 02/03/24 17:00 97.3 F L 64 16 150/77 02/03/24 16:00 98 F 65 16 140/78 02/03/24 13:10 65 178/90 02/03/24 12:47 64 178/90 02/03/24 12:29 74 169/90 95 02/03/24 12:12 56 L 187/93 02/03/24 11:49 62 199/101 02/03/24 11:24 61 193/92 02/03/24 11:18 59 L 192/94 02/03/24 11:13 57 L 193/99 02/03/24 11:03 55 L 191/91 02/03/24 10:58 97.7 F 59 L 17 190/92 97 Intake and Output 02/03/24 02/03/24 02/03/24 06:59 14:59 22:59 Other: # Voids 1 Weight 116.12 kg Focused physical exam is performed. Patient is alert and oriented, in no apparent distress. Abdomen soft, appropriately tender. Incision is clean/dry/intact. Extremities with +3 pitting edema. Results Result Diagrams: 02/03/24 14:21 02/03/24 14:21 Abnormal Lab Results - Last 24 Hours (Table) 02/03/24 02/03/24 02/03/24 Range/Units 14:21 14:21 15:32 RBC 2.27 L (3.80-5.40) m/uL Hgb 6.9 L* D (11.4-16.0) gm/dL Hct 21.7 L (34.0-46.0) % Chloride 111 H (98-107) mmol/L Total Protein 4.9 L (6.3-8.2) g/dL Albumin 2.5 L (3.5-5.0) g/dL Urine Blood (Negative) Crossmatch See Detail 02/03/24 Range/Units 15:50 RBC (3.80-5.40) m/uL Hgb (11.4-16.0) gm/dL Hct (34.0-46.0) % Chloride (98-107) mmol/L Total Protein (6.3-8.2) g/dL Albumin (3.5-5.0) g/dL Urine Blood Trace H (Negative) Crossmatch Assessment and Plan Assessment: 33 year old POD#6 s/p repeat section with chronic hypertension with superimposed pre-eclampsia Plan: 1. Chronic HTN with superimposed pre-eclampsia. s/p Mag Suflate immediately after delivery. Current antihypertensive regimen Labetalol 200mg BID, Procardia XL 60mg qDay. IV Labetalol prn. IM team following. 2. Acute blood loss anemia. Hgb 6.9 on admission. 1u RBCs ordered. Repeat CBC tomorrow. 3. Post-operative. Tylenol, oxycodone reordered. 4. SOB. CXR with some mild pulmonary edema. Covid swab negative. Hep lock IV fluids. Dispo: Inpatient management until BPs well controlled and Hgb stable.
[2024-02-03 21:13] LABS: Basophils % (A) 0 %; Eosinophils # (A) 0.5 k/uL (0-0.7); Eosinophils % (A) 5 %; HCT 22.6 % (34.0-46.0); HGB 7.5 gm/dL (11.4-16.0); Hypochromasia Slight; Lymphocytes # (A) 1.6 k/uL (1.0-4.8); Lymphocytes % (A) 19 %; MCH 31.7 pg (25.0-35.0); MCHC 33.3 g/dL (31.0-37.0); Mean Platelet Volume 8.5; Monocytes # (A) 0.4 k/uL (0-1.0); Monocytes % (A) 4 %; Neutrophils % (A) 71 %; Platelet Count 275 k/uL (150-450); RBC 2.37 m/uL (3.80-5.40); RDW 14.3 % (11.5-15.5); WBC 8.5 k/uL (3.8-10.6)
[2024-02-03] MEDS: LABETALOL 100 MG TAB PO SCH (21:13)
[2024-02-03] MEDS: LABETALOL 5 MG/ML VIAL MDV IVP SCH (23:32)
[2024-02-04] MEDS: FUROSEMIDE 10 MG/ML 2 ML VIAL IV ONE (02:31)
[2024-02-04] MEDS ORDERED: CLEVIDIPINE BUTYRATE 25 MG in EMPTY BAG 1 BAG IV SCH (03:00)
[2024-02-04] MEDS: CLEVIDIPINE BUTYRATE 25 MG in EMPTY BAG 1 BAG IV SCH (03:18)
--- NOTE | 2024-02-04 04:41 | P.EN ---
A -team note Activated for elevated blood pressure. The patient's BP upon arrival was 185/90. The patient is 1 week postop from section and was diagnosed with preeclampsia. At time of interview, she reported experiencing headaches over the past several days and mild shortness of breath. A- team: Indication: Elevated blood pressure Arrived on Scene to find: BP 185/90, patient resting comfortably in bed Patient seen and examined at bedside. General: [non toxic], [no distress], [appears at stated age] Derm: [warm], [dry] Head: [atraumatic], [normocephalic], [symmetric] Eyes: [EOMI], [no lid lag], [anicteric sclera] Mouth: [no lip lesion], [mucus membranes moist] Cardiovascular: [S1S2 reg], [no murmur], [positive posterior tibial pulse bilateral], Lungs: [CTA bilateral], [no rhonchi, no rales] , [no accessory muscle use] Abdominal: [soft], [ nontender to palpation], [no guarding], [no appreciable organomegaly] Ext: [no gross muscle atrophy], [no edema], [no contractures] Neuro: [ CN II-XI grossly intact], [no focal neuro deficits] Psych: [Alert], [oriented], [appropriate affect] Assessment: Hypertensive emergency Plan: 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
--- NOTE | 2024-02-04 06:10 | P.CNPUL ---
History of Present Illness Consult date: 02/04/24 Requesting physician: Lexis Ovalles Reason for consult: pleural effusion, other (Uncontrollable hypertension) Chief complaint: High blood pressures at home, headache History of present illness: Patient is a 33-year-old female with past medical history significant for hypertension, childhood asthma, GERD, obesity with previous gastric sleeve procedure, HSV, anxiety/depression and bipolar disorder. She has history of hypertension, but has not required antihypertensive medications recently. She had a gastric sleeve procedure done in 2012, did lose some weight, and her blood pressure has been well-managed without medications since then. Previously on lisinopril. Of note, patient is a A0. Recently delivered at 37 weeks at [facility] in [place]. She had a delivery complicated by placental abruption and hemorrhage on 01/28/2024. She did receive care. She was noted to be hypertensive throughout her . She was started on Procardia and dose was adjusted up to 60 mg daily in the third trimester. Over the last week, patient has been monitoring her blood pressures at home. Her blood pressures have been high, she is taken multiple doses of labetalol at home. She is also had a constant headache over the last week. Decided to come to the hospital for evaluation yesterday. Blood pressure was noted to be as high as 199/101 mmHg. She has received multiple doses of prn Labetalol while inpatient on family , a total of 160 mg. Also given doses of hydralazine. Despite this, remaining hypertensive. A rapid response was called early this morning. Last recorded blood pressure 185/88 mmHg. Patient was transferred to the intensive care unit for IV antihypertensives. Patient was noted to be anemic with a hemoglobin of 6.9 g/dL.. Platelets 305, LFTs not elevated, total bili 0.4, no protein in urine. She did receive 1 unit PRBCs. She does appear to have a positive fluid balance with lower extremity edema. Most recent CBC: WBC count 8.5, hemoglobin 7.5, hematocrit 22.6, platelets 275. I am evaluating this patient after she has been transferred to the ICU. She is currently resting comfortably on room air. No acute distress. Admits generalized headache. No other neurologic maninfestations such as mental status changes, visions changes, seizures, etc. She does report mild shortness of breath. Denies any chest pain, orthopnea, PND. Does have bilateral lower extremity swelling. Chest xray showing some possible mild PVC. Not requiring any supplemental oxygen. Her is at bedside. Review of Systems Constitutional: Reports weight gain, Denies chills, Denies fever, Denies poor appetite, Denies weight loss Ears, nose, mouth and throat: Reports headache, Denies nasal congestion, Denies nasal discharge, Denies post-nasal drip, Denies sinus pain, Denies sinus pressure, Denies sore throat Cardiovascular: Reports dyspnea on exertion, Reports high blood pressure, Reports leg edema, Denies chest pain, Denies orthopnea, Denies palpitations, Denies paroxysmal nocturnal dyspnea, Denies syncope Respiratory: Denies congestion, Denies cough, Denies cough with sputum, Denies pain on inspiration Gastrointestinal: Denies abdominal pain, Denies change in bowel habits, Denies hematochezia, Denies jaundice, Denies melena, Denies nausea, Denies vomiting Genitourinary: Denies dysuria Musculoskeletal: Denies limitation of motion Integumentary: Denies rash Neurological: Reports as per HPI Psychiatric: Reports depression, Denies anxiety, Denies suicidal ideation Past Medical History Past Medical History: Asthma, GERD/Reflux, Hypertension Additional Past Medical History / Comment(s): Past HTN but not since weight loss, high triglycerides, pancreatitis, ascities, anemia, herpes simplex I. 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 Past Anesthesia/Blood Transfusion Reactions: No Reported Reaction Past Psychological History: Anxiety, Depression Additional Psychological History / Comment(s): Pt reside with her family. She has a 12 yr old son. Pt drives. Pt states she had been thinking of different ways to kill herself. She went to her sister and told her she needed help. Pt has hx of self cutting and recently cut her upper legs. She has had several [facility] admissions. She last tried to commit suicide 08/01/16 with overdosing on seroquel. She states she had years ago also attempted suicide by cutting her wrists. 01/13/24 Pt reports feeling safe at home and currently lives with her son. Pt denies any suicidal thoughts or thoughts of harming herself. Smoking Status: Former smoker Past Alcohol Use History: Occasional Additional Past Alcohol Use History / Comment(s): Pt started smoking in 2003 and quit in 2009. Past Drug Use History: Marijuana Additional Drug Use History / Comment(s): Pt states she will occasionally smoke marijuana. - Past Family History Father Family Medical History: COPD, Hypertension Additional Family Medical History / Comment(s): Depression. Mother Family Medical History: Hypertension Medications and Allergies Home Medications Medication Instructions Recorded Confirmed Type Omeprazole [PriLOSEC] 20 mg PO HS 07/03/16 02/03/24 History Acyclovir [Zovirax] 800 mg PO HS #14 tab 11/23/16 02/03/24 Rx Acetaminophen [Tylenol] 1,000 mg PO Q4-6H PRN 11/06/17 02/03/24 History Aspirin [Adult Low Dose Aspirin EC] 162 mg PO DAILY 01/13/24 02/03/24 History Allergies Allergy/AdvReac Type Severity Reaction Status Date / Time cat dander Allergy Unknown Verified 02/03/24 11:10 diphenhydramine HCl AdvReac anxiety Verified 02/03/24 11:10 [From Benadryl] environmental Allergy Unknown Uncoded 01/28/24 10:35 Physical Exam Vitals: Vital Signs Temp Pulse Pulse Resp BP BP Pulse Ox 02/04/24 01:19 185/88 02/04/24 00:58 168/82 02/04/24 00:48 146/73 02/04/24 00:30 70 175/90 98 02/04/24 00:12 65 174/85 97 02/03/24 23:53 60 20 171/92 97 02/03/24 23:19 97.0 F L 70 20 196/89 95 02/03/24 20:19 97 F L 69 16 139/79 98 02/03/24 19:00 98 F 63 16 167/76 94 L 02/03/24 18:26 97.9 F 73 16 141/85 02/03/24 18:03 97.9 F 73 16 139/67 02/03/24 18:00 97.3 F L 71 16 139/67 02/03/24 17:37 75 129/68 02/03/24 17:00 97.3 F L 64 16 150/77 02/03/24 16:00 98 F 65 16 140/78 02/03/24 14:50 83 119/63 02/03/24 14:40 92 127/67 02/03/24 14:30 91 130/69 02/03/24 14:21 83 117/64 02/03/24 14:10 98 134/73 02/03/24 13:29 71 16 168/90 02/03/24 13:10 65 178/90 02/03/24 12:47 64 178/90 02/03/24 12:29 74 169/90 95 02/03/24 12:12 56 L 187/93 02/03/24 11:49 62 199/101 02/03/24 11:24 61 193/92 02/03/24 11:18 59 L 192/94 02/03/24 11:13 57 L 193/99 02/03/24 11:03 55 L 191/91 02/03/24 10:58 97.7 F 59 L 17 190/92 97 Intake and Output 02/03/24 02/03/24 02/04/24 14:59 22:59 06:59 Intake Total 310 Balance 310 Intake: Blood Product 310 Rc Irr As1 Unit 310 [id number] Other: # Voids 1 2 Weight 116.12 kg GENERAL EXAM: Alert, 33-year-old white female, obese, comfortable in no apparent distress. HEAD: Normocephalic and atraumatic EYES: Normal reaction of pupils, equal size. Nonicteric sclera NOSE: Clear with pink turbinates. THROAT: No erythema or exudates. NECK: No masses, no JVD. CHEST: No chest wall deformity. LUNGS: Equal air entry with no crackles, wheeze, rhonchi or dullness. On room air. No conversational dyspnea or accessory muscle use.. CVS: S1 and S2 normal with soft systolic murmur, grade 1, regular rhythm. No extra heart sounds ABDOMEN: No hepatosplenomegaly, active bowel sounds, no guarding or rigidity. SPINE: No scoliosis or deformity SKIN: No rashes CENTRAL NERVOUS SYSTEM: No focal deficits, tone is normal in all 4 extremities. EXTREMITIES: There is bilateral lower extremity 2+ edema pitting. No clubbing, or cyanosis. Peripheral pulses are intact. Results - Laboratory Findings CBC and BMP: 02/04/24 05:19 02/04/24 05:19 Abnormal lab findings: Abnormal Labs 02/03/24 02/03/24 02/03/24 14:21 14:21 15:32 RBC 2.27 L Hgb 6.9 L* D Hct 21.7 L Chloride 111 H Total Protein 4.9 L Albumin 2.5 L Urine Blood Crossmatch See Detail 02/03/24 02/03/24 15:50 20:55 RBC 2.37 L Hgb 7.5 L Hct 22.6 L Chloride Total Protein Albumin Urine Blood Trace H Crossmatch - Diagnostic Findings Chest x-ray: image reviewed Assessment and Plan Assessment: Hypertensive urgency, patient has been treated with a total of 160 mg of IV push labetalol while on family , as well as, 20 mg of IV hydralazine. A-team called early this morning for refractory hypertension. A0, recent delivery complicated by placental abruption and hemorrhage on 01/28/2024, patient delivered at [facility] History of chronic hypertension, thought to have superimposed preeclampsia Acute blood loss anemia, secondary to above, status post 1 unit PRBC transfusion Acute dyspnea, chest x-ray showing possible mild pulmonary vascular congestion and patient appears fluid positive History of childhood asthma, inactive History of HSV Obesity, with a BMI 40 kg/m and previous gastric sleeve procedure History of anxiety/depression and previous suicide attempts, receives CBT/counseling outpatient Plan: Patient has been transferred to the intensive care unit for artery hypertension, start Cleviprex if needed to maintain SBP less than 160 mmHg Oral antihypertensives will be adjusted No evidence of HELLP syndrome Status post 1 unit PRBC transfusion Will give patient 1 dose of Lasix now Will continue to follow I have personally seen and examined the patient, performed the documentation and the assessment and plan as written. Number of minutes spent on the visit:20 On 02/04/2024, the patient is being seen in joint evaluation in the intensive care unit along with the nurse practitioner. This evaluation was done more than 30 minutes. The patient was admitted with acute hypertensive emergency and the patient was started on Cleviprex and this morning Catapres is running at 2 mg an hour. The patient is also on a combination of Procardia XL 60 mg p.o. daily and labetalol 300 mg p.o. twice daily. Blood pressure is under better control. Minimal headache. Noted the patient was developing hypertension throughout her and she is known to have history of hypertension. No focal neurological deficit. No chest pain. No significant shortness of breath. The patient is on room air oxygen with a pulse ox of 94%. Her hemoglobin is at 7.9, white cell count is at 8.5, renal function is essentially within normal limits. Based on all this, I am going to wean off the Cleviprex and discontinue. Will start the patient on a combination of lisinopril hydrochlorothiazide 20/12.51 tablet a day and Procardia XL 60 mg p.o. daily. Will obtain CTA of the renal arteries. Echocardiogram showed a preserved LV function. Monitor headache. No focal neurological deficits. Start the patient on oral iron. Once stable, the patient can be transferred out of the intensive care unit we will continue to follow. Time with Patient: Greater than 30
[2024-02-04 06:22] LABS: Basophils % (A) 0 %; Eosinophils # (A) 0.5 k/uL (0-0.7); Eosinophils % (A) 6 %; HCT 24.2 % (34.0-46.0); HGB 7.9 gm/dL (11.4-16.0); Hypochromasia Slight; Lymphocytes # (A) 1.6 k/uL (1.0-4.8); Lymphocytes % (A) 19 %; MCH 30.9 pg (25.0-35.0); MCHC 32.7 g/dL (31.0-37.0); MCV 94.7 fL (80.0-100.0); Mean Platelet Volume 7.4; Monocytes # (A) 0.4 k/uL (0-1.0); Monocytes % (A) 5 %; Neutrophils # (A) 5.9 k/uL (1.3-7.7); Neutrophils % (A) 70 %; Platelet Count 331 k/uL (150-450); RBC 2.56 m/uL (3.80-5.40); RDW 14.8 % (11.5-15.5); WBC 8.5 k/uL (3.8-10.6)
[2024-02-04 06:35] LABS: ALT 18 U/L (4-34); AST 17 U/L (14-36); African American GFR (CKD) >90 (>60 ml/min/1.73 sqM); Albumin 2.7 g/dL (3.5-5.0); Alkaline Phosphatase 66 U/L (38-126); Anion Gap 5 mmol/L; Blood Urea Nitrogen 17 mg/dL (7-17); Calcium 8.5 mg/dL (8.4-10.2); Carbon Dioxide 22 mmol/L (22-30); Chloride 111 mmol/L (98-107); Glucose 83 mg/dL (74-99); Non-African American GFR(CKD) 82 (>60 ml/min/1.73 sqM); Potassium 4.1 mmol/L (3.5-5.1); Sodium 138 mmol/L (137-145); Total Bilirubin 0.4 mg/dL (0.2-1.3); Total Protein 5.2 g/dL (6.3-8.2)
--- NOTE | 2024-02-04 08:58 | P.PN ---
Subjective Progress Note Date: 02/04/24 Principal diagnosis: pre-eclampsia with hypertensive urgency Patient feeling slightly better today. Legs less swolled, less short of breath. Headache still 08/27. No other complaints. Objective - Vital Signs Vital signs: Vital Signs Temp 98.3 F 02/04/24 08:00 Pulse 76 02/04/24 08:45 Resp 22 02/04/24 08:45 BP 134/76 02/04/24 08:45 Pulse Ox 97 02/04/24 08:45 FiO2 Intake & Output 02/03/24 02/04/24 02/04/24 18:59 06:59 18:59 Intake Total 0 369.266 24 Output Total 1400 300 Balance 0 -1030.734 -276 Weight 116.12 kg 119.3 kg Intake: IV 40 20 0.9 @ KVO 40 20 Intake, IV Titration 19.266 4 Amount Clevidipine Butyrate 25 19.266 4 mg In Empty Bag 1 bag @ 1 MG/HR 2 mls/hr IV .Q24H EMILEE Rx#:[id number] Blood Product 0 310 Rc Irr As1 Unit 0 310 [id number] Output: Urine 1400 300 Other: Voiding Method Toilet Toilet # Voids 1 1 1 - Exam Focused physical exam performed. No gross neurological deficits. Non-labored breathing, no apparent distress. Abdomen appropriately tender, incision clean/dry/intact. Extremities with +1 pitting edema, improved from yesterday. - Labs CBC & Chem 7: 02/04/24 05:19 02/04/24 05:19 Labs: Abnormal Lab Results - Last 24 Hours (Table) 02/03/24 02/03/24 02/03/24 Range/Units 14:21 14:21 15:32 RBC 2.27 L (3.80-5.40) m/uL Hgb 6.9 L* D (11.4-16.0) gm/dL Hct 21.7 L (34.0-46.0) % Chloride 111 H (98-107) mmol/L Total Protein 4.9 L (6.3-8.2) g/dL Albumin 2.5 L (3.5-5.0) g/dL Urine Blood (Negative) Crossmatch See Detail 02/03/24 02/03/24 02/04/24 Range/Units 15:50 20:55 05:19 RBC 2.37 L 2.56 L (3.80-5.40) m/uL Hgb 7.5 L 7.9 L (11.4-16.0) gm/dL Hct 22.6 L 24.2 L (34.0-46.0) % Chloride (98-107) mmol/L Total Protein (6.3-8.2) g/dL Albumin (3.5-5.0) g/dL Urine Blood Trace H (Negative) Crossmatch 02/04/24 Range/Units 05:19 RBC (3.80-5.40) m/uL Hgb (11.4-16.0) gm/dL Hct (34.0-46.0) % Chloride 111 H (98-107) mmol/L Total Protein 5.2 L (6.3-8.2) g/dL Albumin 2.7 L (3.5-5.0) g/dL Urine Blood (Negative) Crossmatch Assessment and Plan Assessment: 33 year old POD#7 s/p repeat section with chronic hypertension with superimposed pre-eclampsia Plan: 1. Chronic HTN with superimposed pre-eclampsia. s/p Mag Suflate immediately after delivery. Current IV antihypertensive regimen per ICU. 2. Acute blood loss anemia. Hgb 6.9 on admission > 1u RBCs > Hgb now 7.9. Vital signs stable. 3. Post-operative. Tylenol, oxycodone reordered. 4. SOB, fluid overload. CXR with some mild pulmonary edema. Covid swab negative. Hep lock IV fluids. Dispo: Inpatient management until BPs well controlled on PO regimen.
[2024-02-04] MEDS: PANTOPRAZOLE 40 MG TABLET PO STA (09:45)
--- NOTE | 2024-02-04 11:00 | P.PN ---
Subjective Progress Note Date: 02/04/24 Hospital Course: a 33-year-old female 2 para 1 who presented to the ED on 01/13/2024 with headache and elevated blood pressure readings, her estimated due date was 02/14. Patient was started on Procardia 60 mg for gestational hypertension, her initial blood pressure on arrival was 140/90. Patient was also started on hydroxyzine for urticaria and was watched for cholestasis of . At that time patient was given her home Procardia dose that she was due for, headache improved after IV Ofirmev, blood pressure improved. She was discharged home, lab work was negative for preeclampsia.Patient was taken for emergency on 01/27, she also reported placental abruption, she delivered a healthy baby girl who is doing well right now. She stated that she has been on high doses of labetalol, continued on Procardia after delivery, she was then discharged on the on labetalol 200 twice daily, not sure why. Her primary care provider recommended her to go up on labetalol dose to 800 what she did and did not notice improvement in her blood pressure as well as headache. She however denies vision changes, dizziness, lightheadedness. Admits shortness of breath and bilateral lower extremity swelling that has not improved and in fact got somewhat worse after delivery, she states that she has not lost any weight as well. IM service was consulted for preeclampsia management. Patient's blood pressure on 02/02 was noted to be in 199/101 highest, 169/90 lowest.Patient received hydralazine total of 20 mg, labetalol 60 mg, 10 mg of p.o. nifedipine, blood pressure improved to 130s over 80s 02/03 early in the morning a rapid response was called for hypertensive urgency with blood pressure at 180s systolic, patient was transferred to ICU for Cleviprex drip with BP improvement. She was continued on Procardia, lisinopril hydrochlorothiazide added to the treatment plan, hemoglobin remained stable after 1 unit of PRBC transfusion that was done for hemoglobin of 6.9. CTA renal ordered and pending Subjective: Patient was seen and examined at bedside in the ICU, patient has been present during the exam. She admits having persistent headache, shortness of breath and lower extremity swelling improved Pertinent positives and negatives as discussed above, a complete review of systems was performed and all other systems are negative. Vitals Signs Reviewed. General: [nontoxic], [no distress], [appears at stated age] Derm: [warm], [dry] Head: [atraumatic], [normocephalic], [symmetric] Eyes: [EOMI], [no lid lag], [anicteric sclera] Mouth: [no lip lesion], [mucus membranes moist] Cardiovascular: [S1S2 reg], [no murmur] Lungs: [CTA bilateral], [no rhonchi, no rales] , [no accessory muscle use] Abdominal: [soft], [ nontender to palpation], [no guarding], [no appreciable organomegaly] surgical scar clean and dry Ext: [no gross muscle atrophy], lateral lower extremity pitting edema improved], [no contractures] Neuro: [ CN II-XI grossly intact], [no focal neuro deficits] Psych: [Alert], [oriented], [appropriate affect] Data Reviewed Today: Pertinent Labs: Hemoglobin improved after transfusion from 6.9-7.9, no leukocytosis or thrombocytosis, sodium and potassium WNL, creatinine normal, no proteinuria, glucosuria Imagin/16 chest x-ray reviewed personally, there is mild pulmonary vascular congestion Assessment and Plan: Preeclampsia Hypertensive urgency hx of Hypertension -Continue Procardia 60 daily -Agree with lisinopril hydrochlorothiazide ordered by ICU team -Monitor blood pressure and adjust medications accordingly -CTA renal pending -S/p IV Lasix 20 once 02/03 -Patient was previously on lisinopril until she had gastric sleeve surgery, after that her BP was well-controlled without medication Acute blood loss anemia likely in the settings of recent Status post 01/28/2024 -That is post 1 unit PRBC 02/02, hemoglobin stable [Chronic:] HCV: Continue acyclovir Objective - Vital Signs Vital signs: Vital Signs Temp 98.3 F 02/04/24 08:00 Pulse 72 02/04/24 10:15 Resp 13 02/04/24 10:15 BP 138/88 02/04/24 10:15 Pulse Ox 95 02/04/24 10:15 FiO2 Intake & Output 02/03/24 02/04/24 02/04/24 18:59 06:59 18:59 Intake Total 0 369.266 57.2 Output Total 1400 300 Balance 0 -1030.734 -242.8 Weight 116.12 kg 119.3 kg Intake: IV 40 40 0.9 @ KVO 40 40 Intake, IV Titration 19.266 17.2 Amount Clevidipine Butyrate 25 19.266 17.2 mg In Empty Bag 1 bag @ 1 MG/HR 2 mls/hr IV .Q24H EMILEE Rx#:[id number] Blood Product 0 310 Rc Irr As1 Unit 0 310 [id number] Output: Urine 1400 300 Other: Voiding Method Toilet Toilet # Voids 1 1 1 - Labs CBC & Chem 7: 02/04/24 05:19 02/04/24 05:19 Labs: Abnormal Lab Results - Last 24 Hours (Table) 02/03/24 02/03/24 02/03/24 Range/Units 14:21 14:21 15:32 RBC 2.27 L (3.80-5.40) m/uL Hgb 6.9 L* D (11.4-16.0) gm/dL Hct 21.7 L (34.0-46.0) % Chloride 111 H (98-107) mmol/L Total Protein 4.9 L (6.3-8.2) g/dL Albumin 2.5 L (3.5-5.0) g/dL Urine Blood (Negative) Crossmatch See Detail 02/03/24 02/03/24 02/04/24 Range/Units 15:50 20:55 05:19 RBC 2.37 L 2.56 L (3.80-5.40) m/uL Hgb 7.5 L 7.9 L (11.4-16.0) gm/dL Hct 22.6 L 24.2 L (34.0-46.0) % Chloride (98-107) mmol/L Total Protein (6.3-8.2) g/dL Albumin (3.5-5.0) g/dL Urine Blood Trace H (Negative) Crossmatch 02/04/24 Range/Units 05:19 RBC (3.80-5.40) m/uL Hgb (11.4-16.0) gm/dL Hct (34.0-46.0) % Chloride 111 H (98-107) mmol/L Total Protein 5.2 L (6.3-8.2) g/dL Albumin 2.7 L (3.5-5.0) g/dL Urine Blood (Negative) Crossmatch
[2024-02-04] MEDS: LISINOPRIL-HCTZ 20-12.5 MG 1 EACH TAB PO SCH (11:38)
[2024-02-04] MEDS: FERROUS SULFATE 325 MG TAB PO SCH (11:38)
[2024-02-04] MEDS: ONDANSETRON 4 MG/2 ML VIAL IVP PRN (12:23)
[2024-02-04] MEDS: FUROSEMIDE 10 MG/ML 4 ML VIAL IV STA (12:23)
--- NOTE | 2024-02-04 13:27 | CT ---
INDICATION: Patient age:Female; 33 years old; Reason for study: r/o renal stenosis; PHH. COMPARISON: CT abdomen pelvis 06/28/2014, transvaginal ultrasound 08/28/2021 TECHNIQUE: Multiple thin slice sub-millimeter images were obtained through the abdomen before and aft er administration of contrast. Patient was given Isovue 370, 100 cc intravenously. 3-D reconstructe d images and maximum intensity projection images were obtained of the abdominal aorta and its branche s. One or more CT dose reduction strategies were utilized during this examination. DLP administered was 2596 mGycm. FINDINGS: CTA Abdomen: The abdominal aorta does not demonstrate aneurysmal dilatation. No atherosclerotic plaqu ing of the abdominal aorta and its branches. The origins of the superior mesenteric artery, renal art eries, inferior mesenteric artery, and celiac axis are patent. The visualized bilateral common iliac arteries are widely patent. The visualized portions of the bilateral internal and external iliac brenda arlin are widely patent. There are 2 left and right widely patent renal arteries. No evidence for sten osis. VISCERA ABDOMEN: Liver: Unremarkable. Gallbladder and Bile ducts: Gallbladder is surgically absent. No biliary ductal dilatation. Pancreas: Unremarkable. Spleen: Unremarkable. Adrenal glands: Unremarkable. Kidneys and Ureters: No hydronephrosis or renal calculus. Kidneys enhance symmetrically. Reproductive: Prominent heterogenous partially visualized uterus. Prominent partially visualized righ t ovary. Left ovary is not visualized and reportedly surgically absent. Stomach and Bowel: Post surgical changes from gastric sleeve. Small hiatal hernia. No evidence of bow el obstruction or bowel wall thickening. Peritoneum: No evidence of pneumoperitoneum, or adenopathy. Small amount of ascites throughout the a bdomen and pelvis. Diffuse anasarca. Right lower anterior abdominal wall partially visualized fluid c ollection with focus of gas measuring up to 4.2 cm (series 201, image 69). Vasculature: Unremarkable. No aortic aneurysm. Musculoskeletal: The osseous structures appear intact. LOWER CHEST: Small right and trace left pleural effusions with associated atelectasis. IMPRESSION: 1. No evidence of vascular occlusion or renal artery stenosis. 2. Partial visualization a right anterior abdominal wall fluid collection with single focus of gas. Correlate clinically. 3. Small right and trace left pleural effusions with small volume ascites and diffuse anasarca. Mike elate for volume overload. 4. Prominent size of the uterus and right ovary. Consider further evaluation with pelvic ultrasound as clinically indicated. [facility], , 02/04/2024 1:25 PM
[2024-02-04] MEDS: ACYCLOVIR 800 MG TAB PO SCH (20:34)
[2024-02-04] MEDS: PANTOPRAZOLE 40 MG TABLET PO SCH (20:34)
[2024-02-05] MEDS: ALPRAZolam 0.25 MG TAB PO PRN (00:29)
[2024-02-05] MEDS: hydrALAZINE HCL 20 MG/ML 1 ML VIAL IVP PRN (00:30)
[2024-02-05 06:28] LABS: Basophils # (A) 0.1 k/uL (0-0.2); Basophils % (A) 1 %; Eosinophils # (A) 0.5 k/uL (0-0.7); Eosinophils % (A) 7 %; HCT 23.3 % (34.0-46.0); HGB 7.7 gm/dL (11.4-16.0); Hypochromasia Slight; Lymphocytes # (A) 1.6 k/uL (1.0-4.8); Lymphocytes % (A) 22 %; MCH 31.3 pg (25.0-35.0); Mean Platelet Volume 7.4; Monocytes # (A) 0.4 k/uL (0-1.0); Monocytes % (A) 5 %; Neutrophils # (A) 4.8 k/uL (1.3-7.7); Neutrophils % (A) 64 %; Platelet Count 311 k/uL (150-450); RBC 2.45 m/uL (3.80-5.40); RDW 14.5 % (11.5-15.5); WBC 7.6 k/uL (3.8-10.6)
[2024-02-05 06:34] LABS: ALT 16 U/L (4-34); AST 16 U/L (14-36); African American GFR (CKD) 88 (>60 ml/min/1.73 sqM); Albumin 2.6 g/dL (3.5-5.0); Alkaline Phosphatase 57 U/L (38-126); Anion Gap 0 mmol/L; Blood Urea Nitrogen 15 mg/dL (7-17); Calcium 8.4 mg/dL (8.4-10.2); Carbon Dioxide 27 mmol/L (22-30); Chloride 110 mmol/L (98-107); Glucose 81 mg/dL (74-99); Non-African American GFR(CKD) 76 (>60 ml/min/1.73 sqM); Sodium 137 mmol/L (137-145); Total Bilirubin 0.3 mg/dL (0.2-1.3); Total Protein 5.1 g/dL (6.3-8.2)
--- NOTE | 2024-02-05 09:34 | XR ---
EXAMINATION TYPE: XR chest 1V portable DATE OF EXAM: 02/05/2024 8:47 AM COMPARISON: 02/03/2024 CLINICAL INDICATION: Female, 33 years old with history of SOB, TECHNIQUE: Single frontal view of the chest is obtained. FINDINGS: There is no focal air space opacity, pleural effusion, or pneumothorax seen. The cardiac silhouette size is within normal limits. The osseous structures are intact. IMPRESSION: No acute process. [facility], , 02/05/2024 9:32 AM
[2024-02-05] MEDS: FUROSEMIDE 10 MG/ML 2 ML VIAL IV ONE (10:58)
--- NOTE | 2024-02-05 11:36 | CA ---
Transthoracic Echo Report Name: Clari Agustin Age: 33 Gender: F : 1990 Exam Date: 02/05/2024 09:52 Exam Location: [facility] Ht (in): 67 Wt (lb): 260 Ordering Physician: Mukul Green MD ([id number]) Attending/Referring Phys: Secretary Book Keeper Marissa Henderson RDCS Procedure CPT: Indications: LV function Cardiac Hx: 1 week post Technical Quality: Fair Contrast 1: Total Dose (mL): Contrast 2: Total Dose (mL): MEASUREMENTS (Male / Female) Normal Values 2D ECHO LV Diastolic Diameter PLAX 5.6 cm 4.2 - 5.9 / 3.9 - 5.3 cm LV Systolic Diameter PLAX 4.0 cm IVS Diastolic Thickness 0.9 cm 0.6 - 1.0 / 0.6 - 0.9 cm LVPW Diastolic Thickness 1.2 cm 0.6 - 1.0 / 0.6 - 0.9 cm LV Relative Wall Thickness 0.4 RV Internal Dim ED PLAX 2.1 cm LA Systolic Diameter LX 4.3 cm 3.0 - 4.0 / 2.7 - 3.8 cm LV Diastolic Volume MOD BP 141.3 cm??? 67 - 155 / 56 - 104 cm??? LV Systolic Volume MOD BP 53.8 cm??? - 58 / 19 - 49 cm??? LV Ejection Fraction MOD BP 62.0 % >= 55 % LV Cardiac Index MOD BP 2717.0 cm???/min???m??? LV Diastolic Volume MOD 4C 152.8 cm??? LV Systolic Volume MOD 4C 58.4 cm??? LV Ejection Fraction MOD 4C 61.8 % LV Cardiac Index MOD 4C 2929.6 cm???/min???m??? LV Diastolic Length 4C 8.7 cm LV Systolic Length 4C 6.3 cm LV Diastolic Volume MOD 2C 118.1 cm??? LV Systolic Volume MOD 2C 48.2 cm??? LV Ejection Fraction MOD 2C 59.2 % LV Cardiac Index MOD 2C 2168.3 cm???/min???m??? LV Diastolic Length 2C 7.9 cm LV Systolic Length 2C 6.6 cm LA Volume 67.6 cm??? 18 - 58 / 22 - 52 cm??? LA Volume Index 28.0 cm???/m??? 16 - 28 cm???/m??? M-MODE Aortic Root Diameter MM 3.2 cm LA Systolic Diameter MM 4.6 cm LA Ao Ratio MM 1.4 AV Cusp Separation MM 2.0 cm DOPPLER AV Peak Velocity 184.1 cm/s AV Peak Gradient 13.5 mmHg AV Mean Velocity 129.4 cm/s AV Mean Gradient 7.6 mmHg AV Velocity Time Integral 37.0 cm LVOT Peak Velocity 160.0 cm/s LVOT Peak Gradient 10.2 mmHg LVOT Velocity Time Integral 32.5 cm MV Area PHT 2.1 cm??? Mitral E Point Velocity 148.9 cm/s Mitral A Point Velocity 117.6 cm/s Mitral E to A Ratio 1.3 MV Deceleration Time 368.6 ms TR Peak Velocity 231.6 cm/s TR Peak Gradient 21.5 mmHg Right Ventricular Systolic Press 36.2 mmHg FINDINGS Left Ventricle Left ventricular ejection fraction is estimated at 55-60 %. Mildly increased posterior wall thickness. Mildly increased left ventricular diastolic diameter.Mildly increased left ventricular systolic volume. No obvious regional wall motion abnormalities. Right Ventricle Normal right ventricular size. Mild pulmonary hypertension. Right Atrium Normal right atrial size. Left Atrium Mildly increased left atrial diameter. Moderately increased left atrial volume. Mitral Valve Structurally normal mitral valve. [id number]-oc-hxujvydu mitral regurgitation. No mitral stenosis. Aortic Valve Trileaflet aortic valve. No aortic valve stenosis or regurgitation. Tricuspid Valve Structurally normal tricuspid valve. Mild tricuspid regurgitation. Pulmonic Valve Structurally normal pulmonic valve. Trace pulmonic regurgitation. No pulmonic stenosis. Pericardium No pericardial or pleural effusion. Echo free space anterior to the right ventricle likely represents a fat pad. Aorta Normal size aortic root and proximal ascending aorta. CONCLUSIONS Normal LV function Left atrial enlargement Mild to moderate mitral regurgitation Previewed by: Dr. Jean Carlos Villatoro MD (Electronically Signed) Final Date: 05 February 2024 11:35
--- NOTE | 2024-02-05 12:36 | P.PN ---
Subjective Progress Note Date: 02/05/24 Principal diagnosis: Chronic HTN with superimposed pre-eclampsia with hypertensive urgency Patient continuing to feel better. Swelling in legs continuing to improve, shortness of breath improved. Headache has now resolved. No other complaints. Objective - Vital Signs Vital signs: Vital Signs Temp 98.1 F 02/05/24 08:00 Pulse 63 02/05/24 11:00 Resp 15 02/05/24 11:00 BP 150/86 02/05/24 11:00 Pulse Ox 97 02/05/24 11:00 FiO2 Intake & Output 02/04/24 02/05/24 02/05/24 18:59 06:59 18:59 Intake Total 998.733 200 Output Total 4251 1300 300 Balance -3252.267 -1300 -100 Weight 115.2 kg Intake: IV 110 0.9 @ KVO 110 Intake, IV Titration 28.733 Amount Clevidipine Butyrate 25 28.733 mg In Empty Bag 1 bag @ 1 MG/HR 2 mls/hr IV .Q24H EMILEE Rx#:[id number] Oral 860 200 Output: Urine 4250 1300 300 Stool 1 Other: Voiding Method Toilet Toilet Toilet # Voids 10 1 - Exam Focused physical exam performed. No gross neurological deficits. Non-labored breathing, no apparent distress. Abdomen appropriately tender, incision clean/dry/intact. Extremities with +1 pitting edema. - Labs CBC & Chem 7: 02/05/24 05:41 02/05/24 05:41 Labs: Abnormal Lab Results - Last 24 Hours (Table) 02/05/24 02/05/24 Range/Units 05:41 05:41 RBC 2.45 L (3.80-5.40) m/uL Hgb 7.7 L (11.4-16.0) gm/dL Hct 23.3 L (34.0-46.0) % Chloride 110 H (98-107) mmol/L Total Protein 5.1 L (6.3-8.2) g/dL Albumin 2.6 L (3.5-5.0) g/dL Assessment and Plan Assessment: 33 year old POD#8 s/p repeat section with chronic hypertension with superimposed pre-eclampsia Plan: 1. Chronic HTN with superimposed pre-eclampsia. s/p Mag Suflate immediately after delivery. Now on Lisinopril-HCTZ 20-12.5mg, Procardia XL 60mg daily 2. Acute blood loss anemia. Hgb 6.9 on admission > 1u RBCs > Hgb 7.9. Vital signs stable. 3. Post-operative. Tylenol, oxycodone. 4. SOB, fluid overload - resolving Dispo: Transfer back to the floor today from the ICU. Monitor BPs on oral regimen.
--- NOTE | 2024-02-05 15:51 | P.PN ---
Subjective Progress Note Date: 02/05/24 Patient is a 33-year-old female with past medical history significant for hypertension, childhood asthma, GERD, obesity with previous gastric sleeve procedure, HSV, anxiety/depression and bipolar disorder. She has history of hypertension, but has not required antihypertensive medications recently. She had a gastric sleeve procedure done in 2012, did lose some weight, and her blood pressure has been well-managed without medications since then. Previously on lisinopril. Of note, patient is a A0. Recently delivered at 37 weeks at [facility] in [place]. She had a delivery complicated by placental abruption and hemorrhage on 01/28/2024. She did receive care. She was noted to be hypertensive throughout her . She was started on Procardia and dose was adjusted up to 60 mg daily in the third trimester. Over the last week, patient has been monitoring her blood pressures at home. Her blood pressures have been high, she is taken multiple doses of labetalol at home. She is also had a constant headache over the last week. Decided to come to the hospital for evaluation yesterday. Blood pressure was noted to be as high as 199/101 mmHg. She has received multiple doses of prn Labetalol while inpatient on family , a total of 160 mg. Also given doses of hydralazine. Despite this, remaining hypertensive. A rapid response was called early this morning. Last recorded blood pressure 185/88 mmHg. Patient was transferred to the intensive care unit for IV antihypertensives. Patient was noted to be anemic with a hemoglobin of 6.9 g/dL.. Platelets 305, LFTs not elevated, total bili 0.4, no protein in urine. She did receive 1 unit PRBCs. She does appear to have a positive fluid balance with lower extremity edema. Most recent CBC: WBC count 8.5, hemoglobin 7.5, hematocrit 22.6, platelets 275. I am evaluating this patient after she has been transferred to the ICU. She is currently resting comfortably on room air. No acute distress. Admits generalized headache. No other neurologic maninfestations such as mental status changes, visions changes, seizures, etc. She does report mild shortness of breath. Denies any chest pain, orthopnea, PND. Does have bilateral lower extremity swelling. Chest xray showing some possible mild PVC. Not requiring any supplemental oxygen. Her is at bedside. On 02/05/2024, the patient is awake and alert and communicating. Blood pressure is under better control. Most recent BP is 133/78. The patient is currently on a combination of nifedipine 60 mg p.o. daily and Zestoretic 20/12.51 tablet a day. No headaches. No altered mentation. Still has some edema lower extremity the patient will be given another dose of Lasix. Fluid balance has been -4.5 L over the past 24 hours. Hemoglobin stable at 7.7 and the patient is currently on oral iron. The white cell count is 7.6. BUN is at 15 with a creatinine of 0.9 and sodium levels at 137. No other significant events overnight. The patient is currently on room air oxygen. Cardiac rhythm is sinus. Objective - Vital Signs Vital signs: Vital Signs Temp 98.1 F 02/05/24 08:00 Pulse 80 02/05/24 09:00 Resp 18 02/05/24 09:00 BP 131/71 02/05/24 09:00 Pulse Ox 96 02/05/24 09:00 FiO2 Intake & Output 02/04/24 02/05/24 02/05/24 18:59 06:59 18:59 Intake Total 998.733 200 Output Total 4251 1300 0 Balance -3252.267 -1300 200 Weight 115.2 kg Intake: IV 110 0.9 @ KVO 110 Intake, IV Titration 28.733 Amount Clevidipine Butyrate 25 28.733 mg In Empty Bag 1 bag @ 1 MG/HR 2 mls/hr IV .Q24H EMILEE Rx#:[id number] Oral 860 200 Output: Urine 4250 1300 0 Stool 1 Other: Voiding Method Toilet Toilet Toilet # Voids 10 1 - Exam GENERAL EXAM: Alert, 33-year-old white female, obese, comfortable in no apparent distress. HEAD: Normocephalic and atraumatic EYES: Normal reaction of pupils, equal size. Nonicteric sclera NOSE: Clear with pink turbinates. THROAT: No erythema or exudates. NECK: No masses, no JVD. CHEST: No chest wall deformity. LUNGS: Equal air entry with no crackles, wheeze, rhonchi or dullness. On room air. No conversational dyspnea or accessory muscle use.. CVS: S1 and S2 normal with soft systolic murmur, grade 1, regular rhythm. No extra heart sounds ABDOMEN: No hepatosplenomegaly, active bowel sounds, no guarding or rigidity. SPINE: No scoliosis or deformity SKIN: No rashes CENTRAL NERVOUS SYSTEM: No focal deficits, tone is normal in all 4 extremities. EXTREMITIES: There is bilateral lower extremity 2+ edema pitting. No clubbing, or cyanosis. Peripheral pulses are intact. - Labs CBC & Chem 7: 02/05/24 05:41 02/05/24 05:41 Labs: Abnormal Lab Results - Last 24 Hours (Table) 02/05/24 02/05/24 Range/Units 05:41 05:41 RBC 2.45 L (3.80-5.40) m/uL Hgb 7.7 L (11.4-16.0) gm/dL Hct 23.3 L (34.0-46.0) % Chloride 110 H (98-107) mmol/L Total Protein 5.1 L (6.3-8.2) g/dL Albumin 2.6 L (3.5-5.0) g/dL Assessment and Plan Assessment: Hypertensive urgency, recovered and the patient's blood pressure is under better control and the patient is currently on a combination of Procardia XL 60 mg p.o. daily and lisinopril hydrochlorothiazide 20/12.5 mg 1 tablet a day. Receiving hydralazine and as-needed basis. A0, recent delivery complicated by placental abruption and hemorrhage on 01/28/2024, patient delivered at [facility] the patient continues to have signs of fluid overload and the patient was given dose of Lasix and the patient has been maintaining negative fluid balance, continues to have edema lower extremities bilaterally History of chronic hypertension, thought to have superimposed preeclampsia Acute blood loss anemia, secondary to above, status post 1 unit PRBC transfusion, currently on oral iron replacement twice daily and the patient's hemoglobin is stable Acute dyspnea, chest x-ray showing possible mild pulmonary vascular congestion, improved History of childhood asthma, inactive History of HSV Obesity, with a BMI 40 kg/m and previous gastric sleeve procedure History of anxiety/depression and previous suicide attempts, receives CBT/counseling outpatient Plan: Continue monitoring the blood pressure Continue Procardia XL 60 mg p.o. daily Continue lisinopril hydrochlorothiazide 20/12.5 mg 1 tablet a day Lasix 20 mg IV push Monitor hemoglobin Transfer the patient out of the intensive care unit Echocardiogram has been within normal limits CTA of the renal arteries have been within normal limits Will continue to follow
--- NOTE | 2024-02-05 19:34 | P.PN ---
Subjective Progress Note Date: 02/05/24 Patient was seen and examined. On the phone. Appears comfortable. Most recent BP 146/92. Off Clevidipine drip since 3AM. CBC and CMP significant for RBC 2.45, Hg 7.7, Hct 23.3, Cl 110, alb 2.6. Echo EF 55-60% with mild-mod MR. CXR negative. Renal arteriogram negative for stenosis. General: non toxic, no distress, appears at stated age Derm: warm, dry Head: atraumatic, normocephalic, symmetric Eyes: EOMI, no lid lag, anicteric sclera Mouth: no lip lesion, mucus membranes moist Cardiovascular: good distal perfusion in all 4 extremities Lungs: breathing comfortably Ext: no gross muscle atrophy, no edema, no contractures Psych: Alert, oriented, appropriate affect Based on my assessment of this patient, this patient meets a high complexity level of care. Hypertensive urgency: Clevidipine drip discontinued at 3AM. Continue Procardia 60 mg PO QD. Lisinopril 20 mg PO QD. HCTZ 12.5 mg PO QD. Hydralazine IV PRN with parameters. Cardiology consulted. Preeclampsia Acute blood loss anemia: Status post 1 PRBC. Status post 01/28/2024 CODE STATUS: FULL CODE DVT Prophylaxis: Early ambulation GI Prophylaxis: Protonix PO Designated medical POA if patient is not able to make medical decisions for themselves: I have reviewed the following applications consultant notes: Pulmonary, OB I have reviewed the results of the following tests: CBC, CMP, Renal US, CXR, Echo. I have ordered the following tests: I have discussed the care of this patient with the following independent historian: HERMELINDA. I have independently interpreted the following test below: I have discussed the management of this patient with the following physician: Objective - Vital Signs Vital signs: Vital Signs Temp 98.2 F 02/05/24 12:00 Pulse 76 02/05/24 16:10 Resp 18 02/05/24 16:10 BP 146/92 02/05/24 16:10 Pulse Ox 97 02/05/24 11:00 FiO2 Intake & Output 02/04/24 02/05/24 02/05/24 18:59 06:59 18:59 Intake Total 998.733 400 Output Total 4251 1300 1150 Balance -3252.267 -1300 -750 Weight 115.2 kg Intake: IV 110 0.9 @ KVO 110 Intake, IV Titration 28.733 Amount Clevidipine Butyrate 25 28.733 mg In Empty Bag 1 bag @ 1 MG/HR 2 mls/hr IV .Q24H EMILEE Rx#:[id number] Oral 860 400 Output: Urine 4250 1300 1150 Stool 1 Other: Voiding Method Toilet Toilet Toilet # Voids 10 1 1 - Labs CBC & Chem 7: 02/05/24 05:41 02/05/24 05:41 Labs: Abnormal Lab Results - Last 24 Hours (Table) 02/05/24 02/05/24 Range/Units 05:41 05:41 RBC 2.45 L (3.80-5.40) m/uL Hgb 7.7 L (11.4-16.0) gm/dL Hct 23.3 L (34.0-46.0) % Chloride 110 H (98-107) mmol/L Total Protein 5.1 L (6.3-8.2) g/dL Albumin 2.6 L (3.5-5.0) g/dL
[2024-02-05 20:04] VITALS: RESP 16
[2024-02-06 07:42] LABS: Basophils % (A) 1 %; Eosinophils # (A) 0.5 k/uL (0-0.7); Eosinophils % (A) 8 %; HCT 24.4 % (34.0-46.0); HGB 8.1 gm/dL (11.4-16.0); Lymphocytes # (A) 1.6 k/uL (1.0-4.8); Lymphocytes % (A) 22 %; MCH 31.2 pg (25.0-35.0); MCHC 32.9 g/dL (31.0-37.0); MCV 94.6 fL (80.0-100.0); Mean Platelet Volume 7.7; Monocytes # (A) 0.3 k/uL (0-1.0); Monocytes % (A) 4 %; Neutrophils # (A) 4.6 k/uL (1.3-7.7); Neutrophils % (A) 64 %; Platelet Count 379 k/uL (150-450); RBC 2.58 m/uL (3.80-5.40); RDW 14.9 % (11.5-15.5); WBC 7.3 k/uL (3.8-10.6)
--- NOTE | 2024-02-06 07:43 | P.CRDCN ---
History of Present Illness Consult date: 02/06/24 History of present illness: The patient is a pleasant 33-year-old female patient with a past medical history significant for overweight as well as hypertension and also history of asthma. The patient delivered a baby 2 weeks ago through and that was performed at [facility]. She was admitted to the hospital with hypertension urgency. Apparently she has been experiencing headache associated with dizziness and lightheadedness but no presyncope or syncope and no symptoms of chest pain or chest discomfort or shortness of breath. At that point she presented to the hospital where the pressure was consistent with a systolic above 180 mmHg which she was diagnosed with hypertension urgency and she was admitted to the ICU where she was started on clevidipine with improvement in the blood pressure and subsequently that was weaned slowly and then she was started on oral hypertension medications including lisinopril/hydrochlorothiazide along with nifedipine. When she was seen and evaluated yesterday morning her pressure has been definitely much better compared to before and currently she is asymptomatic with no pain in the chest or shortness of breath or any dizziness or lightheadedness or any more headache or any presyncope or syncope. The EKG showed sinus mechanism with no significant ST or T wave abnormalities. The echo showed normal LV systolic function with no significant valvular abnormalities. From the cardiovascular standpoint of view, the patient can be discharged out of the ICU. Please note that the patient was diagnosed with hypertension in the past but she stopped taking her medications. The physical examination is remarkable for regular rhythm with a soft systolic murmur at the right upper sternal border with clear breathing sounds bilaterally and no carotid bruit and no edema was noted Assessment Hypertension urgency Status post History of hypertension in the past Overweight Multiple comorbid conditions Plan Continue the current medical regimen including current dose of lisinopril/hydrochlorothiazide along with nifedipine The patient can be discharged from the intensive care unit The echo showed normal LV systolic function Past Medical History Past Medical History: Asthma, GERD/Reflux, Hypertension Additional Past Medical History / Comment(s): Past HTN but not since weight loss, high triglycerides, pancreatitis, ascities, anemia, herpes simplex I. 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 Past Anesthesia/Blood Transfusion Reactions: No Reported Reaction Past Psychological History: Anxiety, Depression Additional Psychological History / Comment(s): Pt reside with her family. She has a 12 yr old son. Pt drives. Pt states she had been thinking of different ways to kill herself. She went to her sister and told her she needed help. Pt has hx of self cutting and recently cut her upper legs. She has had several [facility] admissions. She last tried to commit suicide 08/01/16 with overdosing on seroquel. She states she had years ago also attempted suicide by cutting her wrists. 01/13/24 Pt reports feeling safe at home and currently lives with her son. Pt denies any suicidal thoughts or thoughts of harming herself. Smoking Status: Former smoker Past Alcohol Use History: Occasional Additional Past Alcohol Use History / Comment(s): Pt started smoking in 2003 and quit in 2009. Past Drug Use History: Marijuana Additional Drug Use History / Comment(s): Pt states she will occasionally smoke marijuana. - Past Family History Father Family Medical History: COPD, Hypertension Additional Family Medical History / Comment(s): Depression. Mother Family Medical History: Hypertension Medications and Allergies Home Medications Medication Instructions Recorded Confirmed Type Omeprazole [PriLOSEC] 20 mg PO HS 07/03/16 02/03/24 History Acyclovir [Zovirax] 800 mg PO HS #14 tab 11/23/16 02/03/24 Rx Acetaminophen [Tylenol] 1,000 mg PO Q4-6H PRN 11/06/17 02/03/24 History Aspirin [Adult Low Dose Aspirin EC] 162 mg PO DAILY 01/13/24 02/03/24 History Allergies Allergy/AdvReac Type Severity Reaction Status Date / Time cat dander Allergy Unknown Verified 02/03/24 11:10 diphenhydramine HCl AdvReac anxiety Verified 02/03/24 11:10 [From Benadryl] environmental Allergy Unknown Uncoded 01/28/24 10:35 Physical Exam Vitals: Vital Signs Temp Pulse Pulse Resp BP BP Pulse Ox 02/05/24 23:24 98.4 F 73 16 131/84 97 02/05/24 19:55 98.2 F 82 16 134/85 97 02/05/24 17:42 152/90 02/05/24 16:10 76 18 146/92 02/05/24 16:00 68 20 02/05/24 15:00 133/78 02/05/24 14:00 79 17 124/73 02/05/24 13:00 81 18 135/85 02/05/24 12:00 98.2 F 71 11 L 156/109 02/05/24 11:00 63 15 150/86 97 02/05/24 10:30 20 149/90 98 02/05/24 10:00 73 20 140/76 94 L 02/05/24 09:30 80 12 135/76 97 02/05/24 09:00 80 18 131/71 96 02/05/24 08:30 86 14 132/70 96 02/05/24 08:00 98.1 F 97 16 128/79 98 Intake and Output 02/05/24 02/06/24 02/06/24 22:59 06:59 14:59 Output Total 1050 Balance -1050 Output: Urine 1050 Other: Voiding Method Toilet # Voids 1 Results 02/05/24 05:41 02/05/24 05:41 Current Medications Generic Name Dose Route Start Last Admin Trade Name Freq PRN Reason Stop Dose Admin Acetaminophen 1,000 mg 02/03/24 15:21 02/05/24 17:38 Acetaminophen Tab 500 Mg Tab PO 1,000 mg Q6HR PRN Administration Fever and/ or Pain Acyclovir 800 mg 02/04/24 21:00 02/05/24 20:07 Acyclovir 800 Mg Tab PO 800 mg HS EMILEE Administration Protocol Alprazolam 0.25 mg 02/05/24 00:14 02/05/24 23:17 Alprazolam 0.25 Mg Tab PO 0.25 mg BID PRN Administration Anxiety Ferrous Sulfate 325 mg 02/04/24 10:45 02/05/24 17:38 Ferrous Sulfate 325 Mg Tab PO 325 mg BID-W/MEALS EMILEE Administration Lisinopril/HCTZ 1 each 02/04/24 10:45 02/05/24 08:54 Lisinopril-Hctz 20-12.5 Mg 1 Each Tab PO 1 each DAILY EMILEE Administration Hydralazine HCl 20 mg 02/05/24 00:07 02/05/24 00:30 Hydralazine Hcl 20 Mg/Ml 1 Ml Vial IVP 20 mg Q6HR PRN Administration Blood Pressure - High Nifedipine 60 mg 02/05/24 09:00 02/05/24 08:54 Nifedipine Xl 60 Mg Tab.Er.24 PO 60 mg DAILY EMILEE Administration Ondansetron HCl 4 mg 02/04/24 12:18 02/04/24 23:43 Ondansetron 4 Mg/2 Ml Vial IVP 4 mg Q6HR PRN Administration Nausea And Vomiting Oxycodone HCl 5 mg 02/03/24 15:23 02/04/24 23:21 Oxycodone Hcl 5 Mg Tab PO 5 mg Q6HR PRN Administration Pain Pantoprazole Sodium 40 mg 02/04/24 21:00 02/05/24 20:07 Pantoprazole 40 Mg Tablet PO 40 mg HS EMILEE Administration Intake and Output 02/05/24 02/06/24 02/06/24 22:59 06:59 14:59 Output Total 1050 Balance -1050 Output: Urine 1050 Other: Voiding Method Toilet # Voids 1 02/05/24 05:41 02/05/24 05:41
[2024-02-06 08:25] LABS: ALT 16 U/L (4-34); AST 15 U/L (14-36); African American GFR (CKD) >90 (>60 ml/min/1.73 sqM); Albumin 2.8 g/dL (3.5-5.0); Alkaline Phosphatase 58 U/L (38-126); Anion Gap 3 mmol/L; Blood Urea Nitrogen 16 mg/dL (7-17); Calcium 8.7 mg/dL (8.4-10.2); Carbon Dioxide 27 mmol/L (22-30); Chloride 106 mmol/L (98-107); Glucose 82 mg/dL (74-99); Non-African American GFR(CKD) 82 (>60 ml/min/1.73 sqM); Potassium 4.2 mmol/L (3.5-5.1); Sodium 136 mmol/L (137-145); Total Bilirubin 0.3 mg/dL (0.2-1.3); Total Protein 5.2 g/dL (6.3-8.2)
[2024-02-06] MEDS: NIFEdipine XL 30 MG TAB.ER.24 PO STA (11:31)
--- NOTE | 2024-02-06 11:35 | P.PN ---
Subjective Progress Note Date: 02/06/24 Principal diagnosis: Chronic HTN with superimposed pre-eclampsia with hypertensive urgency Patient continuing to feel better. Swelling in legs continuing to improve, shortness of breath improved. Headache has now resolved. No other complaints. She has lost 22 pounds after 2 doses of lasix. Objective - Vital Signs Vital signs: Vital Signs Temp 98.6 F 02/06/24 09:00 Pulse 74 02/06/24 10:57 Resp 16 02/06/24 10:57 BP 163/101 02/06/24 10:57 Pulse Ox 98 02/06/24 09:00 FiO2 Intake & Output 02/05/24 02/06/24 02/06/24 18:59 06:59 18:59 Intake Total 400 Output Total 1350 Balance -950 Weight 109.316 kg Intake: Oral 400 Output: Urine 1350 Other: Voiding Method Toilet # Voids 1 - Exam Focused physical exam performed. No gross neurological deficits. Non-labored breathing, no apparent distress. Abdomen appropriately tender, incision clean/dry/intact. Extremities now non-edematous, non-tender - Labs CBC & Chem 7: 02/06/24 06:57 02/06/24 06:57 Labs: Abnormal Lab Results - Last 24 Hours (Table) 02/06/24 02/06/24 Range/Units 06:57 06:57 RBC 2.58 L (3.80-5.40) m/uL Hgb 8.1 L (11.4-16.0) gm/dL Hct 24.4 L (34.0-46.0) % Sodium 136 L (137-145) mmol/L Total Protein 5.2 L (6.3-8.2) g/dL Albumin 2.8 L (3.5-5.0) g/dL Assessment and Plan Assessment: 33 year old POD#9 s/p repeat section with chronic hypertension with superimposed pre-eclampsia Plan: 1. Chronic HTN with superimposed pre-eclampsia. s/p Mag Suflate immediately after delivery. Now on Lisinopril-HCTZ 20-12.5mg, Procardia XL 90mg daily 2. Acute blood loss anemia. Hgb 6.9 on admission > 1u RBCs > Hgb 7.9. Now stabl e. 3. Post-operative. Tylenol, oxycodone prn. 4. SOB, fluid overload - resolved 5. History of Bipolar II Disorder and Borderline Personality Disorder, patient would like to restart her [place]. Consult Psych. Currently on Xanax 0.25mg BID per Medicine team. Dispo: Continue inpatient management. Monitor BPs on oral regimen. Appreciate recs from Psych.
--- NOTE | 2024-02-06 12:00 | P.PN ---
Subjective Progress Note Date: 02/06/24 Patient was seen and examined. She denies headache, lightheadedness, chest pain or shortness of breath. Most recent BP 160/100. Currently on Nifedipine 60 mg PO QD + Lisinopril-HCTZ 20-12.5 mg PO QD. CBC and CMP significant for RBC 2.58, Hg 8.1, Hct 24.4, Na 136, alb 2.8. Patient and mother (on the phone) states that Xanax did help lower her BP. She was previously on [place] for treatment of Bipolar disorder which got discontinued when she got . She has taken benzodiazepines in the past when she was a teenager for anxiety. Psychiatry consulted. General: non toxic, no distress, appears at stated age Derm: warm, dry Head: atraumatic, normocephalic, symmetric Eyes: EOMI, no lid lag, anicteric sclera Mouth: no lip lesion, mucus membranes moist Cardiovascular: good distal perfusion in all 4 extremities Lungs: breathing comfortably Ext: no gross muscle atrophy, no edema, no contractures Psych: Alert, oriented, appropriate affect Based on my assessment of this patient, this patient meets a high complexity level of care. Hypertensive urgency: Increase Procardia to 90 mg PO QD. Lisinopril 20 mg PO QD. HCTZ 12.5 mg PO QD. + Labetalol 100 mg PO BID. Hydralazine IV PRN with parameters. Preeclampsia Acute blood loss anemia: Expected result of surgery. Status post 1 PRBC. Status post 01/28/2024 History of bipolar disorder: Psychiatry consulted. CODE STATUS: FULL CODE DVT Prophylaxis: Early ambulation GI Prophylaxis: Protonix PO Designated medical POA if patient is not able to make medical decisions for themselves: I have reviewed the following identity management consultant notes: Cardiology, OB I have reviewed the results of the following tests: CBC, CMP I have ordered the following tests: I have discussed the care of this patient with the following independent historian: Mother over the phone. I have independently interpreted the following test below: I have discussed the management of this patient with the following physician: Objective - Vital Signs Vital signs: Vital Signs Temp 98.6 F 02/06/24 09:00 Pulse 74 02/06/24 10:57 Resp 16 02/06/24 10:57 BP 163/101 02/06/24 10:57 Pulse Ox 98 02/06/24 09:00 FiO2 Intake & Output 02/05/24 02/06/24 02/06/24 18:59 06:59 18:59 Intake Total 400 Output Total 1350 Balance -950 Weight 109.316 kg Intake: Oral 400 Output: Urine 1350 Other: Voiding Method Toilet # Voids 1 - Labs CBC & Chem 7: 02/06/24 06:57 02/06/24 06:57 Labs: Abnormal Lab Results - Last 24 Hours (Table) 02/06/24 02/06/24 Range/Units 06:57 06:57 RBC 2.58 L (3.80-5.40) m/uL Hgb 8.1 L (11.4-16.0) gm/dL Hct 24.4 L (34.0-46.0) % Sodium 136 L (137-145) mmol/L Total Protein 5.2 L (6.3-8.2) g/dL Albumin 2.8 L (3.5-5.0) g/dL
[2024-02-06] MEDS: LABETALOL 100 MG TAB PO SCH (12:20)
--- NOTE | 2024-02-06 19:17 | P.PN ---
Subjective Progress Note Date: 02/06/24 Patient is a 33-year-old female with past medical history significant for hypertension, childhood asthma, GERD, obesity with previous gastric sleeve procedure, HSV, anxiety/depression and bipolar disorder. She has history of hypertension, but has not required antihypertensive medications recently. She had a gastric sleeve procedure done in 2012, did lose some weight, and her blood pressure has been well-managed without medications since then. Previously on lisinopril. Of note, patient is a A0. Recently delivered at 37 weeks at [facility] in [place]. She had a delivery complicated by placental abruption and hemorrhage on 01/28/2024. She did receive care. She was noted to be hypertensive throughout her . She was started on Procardia and dose was adjusted up to 60 mg daily in the third trimester. Over the last week, patient has been monitoring her blood pressures at home. Her blood pressures have been high, she is taken multiple doses of labetalol at home. She is also had a constant headache over the last week. Decided to come to the hospital for evaluation yesterday. Blood pressure was noted to be as high as 199/101 mmHg. She has received multiple doses of prn Labetalol while inpatient on family , a total of 160 mg. Also given doses of hydralazine. Despite this, remaining hypertensive. A rapid response was called early this morning. Last recorded blood pressure 185/88 mmHg. Patient was transferred to the intensive care unit for IV antihypertensives. Patient was noted to be anemic with a hemoglobin of 6.9 g/dL.. Platelets 305, LFTs not elevated, total bili 0.4, no protein in urine. She did receive 1 unit PRBCs. She does appear to have a positive fluid balance with lower extremity edema. Most recent CBC: WBC count 8.5, hemoglobin 7.5, hematocrit 22.6, platelets 275. I am evaluating this patient after she has been transferred to the ICU. She is currently resting comfortably on room air. No acute distress. Admits generalized headache. No other neurologic maninfestations such as mental status changes, visions changes, seizures, etc. She does report mild shortness of breath. Denies any chest pain, orthopnea, PND. Does have bilateral lower extremity swelling. Chest xray showing some possible mild PVC. Not requiring any supplemental oxygen. Her is at bedside. On 02/05/2024, the patient is awake and alert and communicating. Blood pressure is under better control. Most recent BP is 133/78. The patient is currently on a combination of nifedipine 60 mg p.o. daily and Zestoretic 20/12.51 tablet a day. No headaches. No altered mentation. Still has some edema lower extremity the patient will be given another dose of Lasix. Fluid balance has been -4.5 L over the past 24 hours. Hemoglobin stable at 7.7 and the patient is currently on oral iron. The white cell count is 7.6. BUN is at 15 with a creatinine of 0.9 and sodium levels at 137. No other significant events overnight. The patient is currently on room air oxygen. Cardiac rhythm is sinus. 02/06/2024, the patient is on nifedipine 90 mg p.o. daily and labetalol 100 mg p.o. twice a day. Patient is also on Zestoretic 20/12.51 tablet a day. Blood pressure continues to fluctuate with the highest BP recorded was 160/100 this morning, subsequent dropped down to 141/83. The patient otherwise has no chest pain. No shortness of breath. She was transferred out of the intensive care unit. Hemoglobin stable at 8.1. Renal function stable with a creatinine of 0.9. Sodium level is at 136. She was also given Lasix during her ICU stayAnd her fluid balance has been negative and the patient has diuresed approximately 6 L and she is in negative fluid balance. Objective - Vital Signs Vital signs: Vital Signs Temp 98.4 F 02/06/24 16:36 Pulse 80 02/06/24 16:36 Resp 16 02/06/24 16:36 BP 141/83 02/06/24 16:36 Pulse Ox 97 02/06/24 16:36 FiO2 Intake & Output 02/06/24 02/06/24 02/07/24 06:59 18:59 06:59 Weight 109.316 kg Other: # Voids 2 - Exam GENERAL EXAM: Alert, 33-year-old white female, obese, comfortable in no apparent distress. HEAD: Normocephalic and atraumatic EYES: Normal reaction of pupils, equal size. Nonicteric sclera NOSE: Clear with pink turbinates. THROAT: No erythema or exudates. NECK: No masses, no JVD. CHEST: No chest wall deformity. LUNGS: Equal air entry with no crackles, wheeze, rhonchi or dullness. On room air. No conversational dyspnea or accessory muscle use.. CVS: S1 and S2 normal with soft systolic murmur, grade 1, regular rhythm. No extra heart sounds ABDOMEN: No hepatosplenomegaly, active bowel sounds, no guarding or rigidity. SPINE: No scoliosis or deformity SKIN: No rashes CENTRAL NERVOUS SYSTEM: No focal deficits, tone is normal in all 4 extremities. EXTREMITIES: There is bilateral lower extremity 2+ edema pitting. No clubbing, or cyanosis. Peripheral pulses are intact. - Labs CBC & Chem 7: 02/06/24 06:57 02/06/24 06:57 Labs: Abnormal Lab Results - Last 24 Hours (Table) 02/06/24 02/06/24 Range/Units 06:57 06:57 RBC 2.58 L (3.80-5.40) m/uL Hgb 8.1 L (11.4-16.0) gm/dL Hct 24.4 L (34.0-46.0) % Sodium 136 L (137-145) mmol/L Total Protein 5.2 L (6.3-8.2) g/dL Albumin 2.8 L (3.5-5.0) g/dL Assessment and Plan Assessment: Hypertensive urgency, recovered and the patient's blood pressure is under better control and the patient is currently on a combination of Procardia XL 60 mg p.o. daily and lisinopril hydrochlorothiazide 20/12.5 mg 1 tablet a day. Labetalol was also added for a tighter blood pressure control. Blood pressure continues to fluctuate. She is diuresed adequately with IV Lasix with negative fluid balance. A0, recent delivery complicated by placental abruption and hemorrhage on 01/28/2024, patient delivered at [facility] the patient continues to have signs of fluid overload and the patient was given dose of Lasix and the patient has been maintaining negative fluid balance, continues to have edema lower extremities bilaterally History of chronic hypertension, thought to have superimposed preeclampsia Acute blood loss anemia, secondary to above, status post 1 unit PRBC transfusion, currently on oral iron replacement twice daily and the patient's hemoglobin is stable Acute dyspnea, chest x-ray showing possible mild pulmonary vascular congestion, improved History of childhood asthma, inactive History of HSV Obesity, with a BMI 40 kg/m and previous gastric sleeve procedure History of anxiety/depression and previous suicide attempts, [facility] Plan: Continue monitoring the blood pressure Continue Procardia XL 60 mg p.o. daily Continue lisinopril hydrochlorothiazide 20/12.5 mg 1 tablet a day Labetalol 100 mg p.o. twice a day Negative fluid balance Monitor hemoglobin and the hemoglobin is stable, got transfused with a unit of packed RBC Transfer the patient out of the intensive care unit Echocardiogram has been within normal limits CTA of the renal arteries have been within normal limits The patient is currently in labor and delivery unit. Pulmonary critical care services will sign off.
[2024-02-07] MEDS: NIFEdipine XL 90 MG TAB.ER.24 PO SCH (10:02)
--- NOTE | 2024-02-07 10:39 | P.PN ---
Subjective Progress Note Date: 02/07/24 Principal diagnosis: Chronic HTN with superimposed pre-eclampsia with hypertensive urgency Patient continuing to feel better. Swelling in legs continuing to improve, shortness of breath improved. Headache has now resolved. No other complaints. She has lost 22 pounds after 2 doses of lasix. Objective - Vital Signs Vital signs: Vital Signs Temp 98.6 F 02/07/24 08:00 Pulse 75 02/07/24 08:00 Resp 16 02/07/24 08:00 BP 155/95 02/07/24 08:00 Pulse Ox 97 02/06/24 16:36 FiO2 Intake & Output 02/06/24 02/07/24 02/07/24 18:59 06:59 18:59 Weight 109.316 kg 104.961 kg Other: # Voids 2 - Exam Focused physical exam performed. No gross neurological deficits. Non-labored breathing, no apparent distress. Abdomen appropriately tender, incision clean/dry/intact. Extremities now non-edematous, non-tender - Labs CBC & Chem 7: 02/06/24 06:57 02/06/24 06:57 Assessment and Plan Assessment: 33 year old POD#10 s/p repeat section with chronic hypertension with superimposed pre-eclampsia Plan: 1. Chronic HTN with superimposed pre-eclampsia. s/p Mag Sulfate immediately after delivery. Now on Lisinopril-HCTZ 20-12.5mg, Procardia XL 90mg daily, Labetalol 100 mg BID. 2. Acute blood loss anemia. Hgb 6.9 on admission > 1u RBCs > Hgb 7.9. Now stable. 3. Post-operative. Tylenol, oxycodone prn. 4. SOB, fluid overload - resolved 5. History of Bipolar II Disorder and Borderline Personality Disorder, patient would like to restart her [place]. Consult Psych. Currently on Xanax 0.25mg BID per Medicine team. Dispo: Possible discharge home this evening if blood pressures continue to improve. Appreciate recs from Psych.
--- NOTE | 2024-02-07 13:07 | P.PN ---
Subjective Progress Note Date: 02/07/24 Patient was seen and examined. She denies headache, lightheadedness, chest pain or shortness of breath. Most recent BP 155/95. Currently on Nifedipine 90 mg PO QD + Lisinopril-HCTZ 20-12.5 mg PO QD + Labetalol 100 mg PO BID. Blood pressure improved after medication adjustment yesterday. No new labs done today. Psychiatry consult pending. Discussed with Dr. Mancilla. Plans for discharge home later on today if BP is controlled. Discussed with Dr. Webb, he will see the patient today. General: non toxic, no distress, appears at stated age Derm: warm, dry Head: atraumatic, normocephalic, symmetric Eyes: EOMI, no lid lag, anicteric sclera Mouth: no lip lesion, mucus membranes moist Cardiovascular: Normal S1 S2. Lungs: Clear to auscultation bilaterally. Ext: no gross muscle atrophy, no edema, no contractures Psych: Alert, oriented, appropriate affect Based on my assessment of this patient, this patient meets a high complexity level of care. Hypertensive urgency: Procardia to 90 mg PO QD. Lisinopril 20 mg PO QD. HCTZ 12.5 mg PO QD. Labetalol 100 mg PO BID. Hydralazine IV PRN with parameters. Preeclampsia: Management per OBGYN. Acute blood loss anemia: Expected result of surgery. Status post 1 PRBC. Status post 01/28/2024 History of bipolar disorder: Psychiatry consulted. CODE STATUS: FULL CODE DVT Prophylaxis: Early ambulation GI Prophylaxis: Protonix PO Designated medical POA if patient is not able to make medical decisions for themselves: I have reviewed the following aviation consultant notes: Pulmonary, OB I have reviewed the results of the following tests: I have ordered the following tests: I have discussed the care of this patient with the following independent hist orian: I have independently interpreted the following test below: I have discussed the management of this patient with the following physician: Dr. Mancilla Objective - Vital Signs Vital signs: Vital Signs Temp 98.6 F 02/07/24 08:00 Pulse 75 02/07/24 08:00 Resp 16 02/07/24 08:00 BP 155/95 02/07/24 08:00 Pulse Ox 97 02/06/24 16:36 FiO2 Intake & Output 02/06/24 02/07/24 02/07/24 18:59 06:59 18:59 Weight 109.316 kg 104.961 kg Other: # Voids 2 - Labs CBC & Chem 7: 02/06/24 06:57 02/06/24 06:57
--- NOTE | 2024-02-07 15:49 | P.CN ---
Psychiatric Consult - . Consult date: 02/07/24 Consult:: Dictation was produced using Remote dictation software. Please excuse any grammatical, word or spelling errors. IDENTIFYING DATA: This patient is a 33-year-old female with past psychiatric history of bipolar 2 disorder, borderline personality disorder, and medical history of hypertension with superimposed preeclampsia with hypertensive emergency. REASON FOR REFERRAL: Psychiatry was consulted for history of bipolar 2 disorder HISTORY OF PRESENT ILLNESS: The patient delivered a baby 2 weeks ago through C- section and that was performed at [facility]. She was admitted to the hospital with hypertension urgency. She was admitted to the ICU, she has been having improvement in the blood pressure. Upon evaluation today she states that she has a history of borderline personality disorder and bipolar II disorder, she states that she was on medication in the past including clozapine and lithium however she could not remember the dose. She reported that her psychiatrist decided to stop her medication during and she was feeling fine during . She reported that she has been having some sort of anxiety giving her a general medical condition. She reported feeling a little bit down however denied being hopeless, helpless, worthless. She reported that she has been sleeping 6 hours per night. Admitted to good appetite. She denied any current suicidal, self-harm or homicidal thoughts or behavior. She reported previous history of cutting in the past. She states that she is excited about having her baby girl and reported she has been waiting for that for a long time. She denied any thoughts of harming the baby. And reported she will never think about that. She states that she has good support from her significant other, had a 19 years old son and reported her parents lives close by as well as her sisters. She states that her sister currently taking care of the baby. She denied any current or previous history of auditory or visual hallucination, paranoia or delusion, admitted to previous emotional trauma over denied any nightmares or flashbacks. She denied any history of tobacco, alcohol, or any other illicit substance use, she reported using cannabis prior to and was educated on refrain from using cannabis. She denied having access to firearms or guns. Reported that she has been talking with her counselor at [facility] and reported she spoke with them today. Was encouraged to call back and schedule an appointment with her psychiatrist as soon as possible. Discussed restarting her medication, we agreed on leaving that outpatient team since she will be discharged from the hospital soon, and she will need frequent monitoring for her previous medication. She agreed to have Vistaril 25 mg p.o. twice daily to be used as needed for anxiety. PAST PSYCHIATRIC HISTORY: - Inpatient Hospitalizations: 3 times at [facility] - Outpatient Care: [facility], reported she spoke with her therapist today - Current Psychotropics: None currently - Prior Psychotropics/Therapy: [place], clozapine, many others that she could not remember - Prior Psychiatric dx: Borderline personality disorder, bipolar 2 disorder, anxiety, depression - Suicidal Attempts: Patient reported she had 3 previous attempt via cutting and overdose PAST MEDICAL HISTORY: Past Medical History: Asthma, GERD/Reflux, Hypertension Additional Past Medical History / Comment(s): Past HTN but not since weight loss, high triglycerides, pancreatitis, ascities, anemia, herpes simplex I. 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 Past Anesthesia/Blood Transfusion Reactions: No Reported Reaction Past Psychological History: Anxiety, Depression Smoking Status: Former smoker Past Alcohol Use History: Occasional Additional Past Alcohol Use History / Comment(s): Pt started smoking in 2003 and quit in 2009. Past Drug Use History: Marijuana Additional Drug Use History / Comment(s): Pt states she will occasionally smoke marijuana. ALLERGIES: as per EMR. Pt reported that she thinks she is allergic to Benadryl however reported that she recently used it without any reaction. CHEMICAL DEPENDENCY HISTORY: as per HPI. - Tobacco: Patient denies - Alcohol: Patient denies - Illicit Drugs: Patient denies - Cannabis: Patient denies current use, reported she used prior to being FAMILY PSYCHIATRIC/SUBSTANCE USE HISTORY: Anxiety, bipolar disorder, and borderline personality disorder in some of her maternal side of the family. Reported some of her family member uses cannabis, denied any suicide in the family. SOCIAL HISTORY: Patient was born and raised in [place]. Reported that she is currently lives with her son and her baby girl. Reported that she has a significant other who is very supportive, reported her parents lives close by and she has 4 sister around as well, reported good relationship with all of [facility]. Finished high school, with some college and has [employer] certificate. She is currently on SSD. MENTAL STATUS EXAM: General Appearance: Patient appears to be stated age is alert, pleasant, and cooperative. Patient appears to have fair hygiene and grooming wearing hospital gown with fair eye contact. Behavior: Patient is calmly and pleasantly lying in bed without any agitated behavior. She seemed to be excited about the baby, was smiling often. Speech: Patient's speech is fluent and nonpressured. Mood/Affect: Patient reports their mood is "good", affect is congruent Suicidality/Homicidality: Patient denies having any suicidal or homicidal ideation intent or plan. He denied any harmful thoughts toward her baby. Perceptions: Patient denies any visual hallucinations and denies any auditory hallucinations Though content/process: There is no evidence of any delusional thought content and thought process is linear and goal-directed. Memory and concentration: AOX3, grossly intact for the purposes of this session. Can spell "WORLD" backwards Judgment and insight: fair Assessment: This patient is a 33-year-old female with past psychiatric history of bipolar 2 disorder, borderline personality disorder, and medical history of hypertension with superimposed preeclampsia with hypertensive emergency. The patient reported that she has not been taking any psychotropic medication during her , reported that she has been without any manic or hypomanic symptoms during her , admitted to good sleep. She reported being on clozapine and lithium in the past, tried many different other mood stabilizer, antipsychotic medication in the past without help. She denied any current suicidal, homicidal self-harm or behavior, reported that she is feeling really well about having the baby and she is excited and looking forward to be back home to be with her. She denied any thoughts of self-harm to the baby. She is future oriented and looking forward to be with her family. She has good family support from her significant other, parents and sisters. She has been following up with [facility], spoke with her therapist earlier today, has a psychiatrist. Patient was encouraged to make an appointment as soon as possible with her outpatient team to restart her home medication for maintenance therapy bipolar 2 disorder, patient was educated on follow-up with blood works when she restart clozapine and lithium and to follow her outpatient psychiatrist recommendation, patient reported that she understands. She agreed to try Vistaril as needed to address her anxiety. The plan was shared with the RN, asked if social secretary can assess the patient with her outpatient [facility] appointments. Patient agreed with the plan. IMPRESSIONS: History of bipolar 2 disorder History of borderline personality disorder Anxiety disorder, unspecified PLAN: -At this time patient DOES NOT meet criteria for inpatient psychiatric admission. -Continue current treatment as per primary care team -Would recommend the following medication changes/additions: Vistaril 25 mg p.o. twice daily as needed to address anxiety Recommend outpatient follow-up with [facility] psychiatrist and therapist following discharge to restart home medication that she was on prior to with the proper blood work and monitoring -laundromat worker to provide patient with outpatient mental health/psychiatry resources for appropriate follow up upon discharge -Communicated plan to patient's nurse -Psychiatry will sign off at this time -Please contact with any questions. 02/07/24 14:01
[2024-02-07] MEDS: hydrOXYzine pamoate 25 MG CAP PO PRN (17:06)
--- NOTE | 2024-02-08 09:50 | P.PN ---
Subjective Progress Note Date: 02/08/24 Patient was seen and examined. She denies headache, chest pain or shortness of breath. Reports some lightheadedness. Most recent BP 102/83. Currently on Nifedipine 90 mg PO QD + Lisinopril-HCTZ 20-12.5 mg PO QD + Labetalol 100 mg PO BID. No new labs done today. Psychiatry recommends Vistaril PRN for anxiety and outpatient follow up to restart her home medication with appropriate monitoring. General: non toxic, no distress, appears at stated age Derm: warm, dry Head: atraumatic, normocephalic, symmetric Eyes: EOMI, no lid lag, anicteric sclera Mouth: no lip lesion, mucus membranes moist Cardiovascular: Normal S1 S2. Lungs: Clear to auscultation bilaterally. Ext: no gross muscle atrophy, no edema, no contractures Psych: Alert, oriented, appropriate affect Based on my assessment of this patient, this patient meets a high complexity level of care. Hypertensive urgency: Procardia 90 mg PO QD. Lisinopril 20 mg PO QD. HCTZ 12.5 mg PO QD. Labetalol 100 mg PO BID. Hydralazine IV PRN with parameters. Preeclampsia: Management per OBGYN. Acute blood loss anemia: Expected result of surgery. Status post 1 PRBC. Status post 01/28/2024 History of bipolar disorder: Psychiatry recommendations appreciated. Advised patient to hold Labetalol for HR < 60, SBP < 120 or DBP < 80. Will likely need medication adjustments in the future to be followed up with PCP. She does have a BP cuff at home. Plans to follow up with [facility] [address] on 02/26. Follow up with PCP within 1-2 days of discharge. Patient is medically stable for discharge. CODE STATUS: FULL CODE DVT Prophylaxis: Early ambulation GI Prophylaxis: Protonix PO Designated medical POA if patient is not able to make medical decisions for themselves: I have reviewed the following mergers and acquisitions consultant notes: I have reviewed the results of the following tests: I have ordered the following tests: I have discussed the care of this patient with the following independent historian: I have independently interpreted the following test below: I have discussed the management of this patient with the following physician: Objective - Vital Signs Vital signs: Vital Signs Temp 98.3 F 02/08/24 04:00 Pulse 85 02/08/24 04:00 Resp 16 02/08/24 04:00 BP 102/83 02/08/24 04:00 Pulse Ox 99 02/08/24 04:00 FiO2 Intake & Output 02/07/24 02/08/24 02/08/24 18:59 06:59 18:59 Weight 103.192 kg - Labs CBC & Chem 7: 02/06/24 06:57 02/06/24 06:57
--- NOTE | 2024-02-08 11:14 | P.DS ---
Providers Date of admission: 02/03/24 11:09 Expected date of discharge: 02/08/24 Attending physician: Kiersten Mancilla MD Consults: 02/03/24 11:54 Consult Physician Stat Consulting Provider: Cari Woo Consult Reason/Comments: Post Pre-eclampsia not responding to oral Labetalol Do you want consulting provider notified?: Yes 02/04/24 02:00 Consult Physician Stat Consulting Provider: Xochitl Gonzalez Consult Reason/Comments: HTN urgency Do you want consulting provider notified?: Already Contacted 02/06/24 11:30 Consult Physician Routine Consulting Provider: Garrett Webb Consult Reason/Comments: History of Bipolar 2 disorder and borderline personality disorder Do you want consulting provider notified?: Yes Primary care physician: Stated None - Discharge Diagnosis(es) (1) Hypertensive urgency Current Visit: Yes Status: Acute (2) Preeclampsia Current Visit: Yes Status: Acute (3) Major depressive disorder, recurrent severe without psychotic features Current Visit: No Status: Acute Priority: High Hospital Course: Patient is a 33-year-old 2 para 2-0-0-2 who presented on postoperative day #6 having undergone a repeat low-transverse section for preeclampsia with severe features at another institution. At that admission she was treated with magnesium sulfate for prophylaxis. She additionally had placental abruption and some hemorrhage. She is thought to have chronic hypertension and was started on Procardia 60 mg XL in the first trimester and also took hydroxyzine during the for pruritus. She presented to our triage unit with blood pressures as high as 199/101. She was given IV hydralazine as well as labetalol and nifedipine as well which decreased her blood pressures to 130/80. She did complain of a significant headache hemoglobin on admission was found to be 6.9. Internal medicine was consulted for management of blood pressures and she had 1 unit of packed red blood cells transfused. Internal medicine ultimately had her transferred to the intensive care unit for short time for acute management of blood pressures. She additionally underwent a cardiology consultation which failed to demonstrate any cardiac abnormalities. She continued to improve but additionally underwent a psychiatry consultation secondary to longstanding history of major depression for which she is followed through [facility]. They advised using Vistaril as needed for anxiety until she can follow-up as an outpatient. The patient tried this but feels it makes her too lethargic and tired. 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 Discharge medications included Procardia XL 90 mg daily, lisinopril 20 mg daily, hydrochlorothiazide 12.5 mg daily, labetalol 100 mg twice daily. She was otherwise to use [id number] analgesic pain medications as needed. She was additionally to continue iron sulfate daily to help to rebuild her hemoglobin. Discharge hemoglobin and hematocrit were 8.1 and 24.4 respectively. The patient did remain afebrile throughout her hospitalization. Procedures: #1. Acute and chronic hypertensive management #2. Internal medicine consultation #3. Critical care/pulmonology consultation #4. Psychiatry consultation Patient Condition at Discharge: Stable Plan - Discharge Summary New Discharge Prescriptions: No Action Omeprazole [PriLOSEC] 20 mg PO HS Acyclovir [Zovirax] 800 mg PO HS #14 tab Acetaminophen [Tylenol] 1,000 mg PO Q4-6H PRN PRN Reason: Pain Or Fever > 100.5 Aspirin [Adult Low Dose Aspirin EC] 162 mg PO DAILY Discharge Medication List Omeprazole [PriLOSEC] 20 mg PO HS 07/03/16 [History] Acyclovir [Zovirax] 800 mg PO HS #14 tab 11/23/16 [Rx] Acetaminophen [Tylenol] 1,000 mg PO Q4-6H PRN 11/06/17 [History] Aspirin [Adult Low Dose Aspirin EC] 162 mg PO DAILY 01/13/24 [History] Discharge Disposition: HOME SELF-CARE
[2024-02-08 12:34] VITALS: BP 134/84; PULSE 96; TEMP 98.2
[2024-02-10 11:55] LABS: Dopamine 24 Hr Urine 246 ug/day (65-400); Epinephrine 24 Hr Urine 6 ug/day (0-20); Norepinephrine 24 Hr Urine 16 ug/day (15-80); Total Catecholamines Urine 22 ug/day (15-100); Total Volume 24Hr 3,200 mL (600-2000); Urine Creatinine,24 Hr 2.2 gm/24h (0.8-1.8)
== END 2024-02-08 12:50 | disposition home or self-care (01) | DRG 776 ==
LOC: FBPOP 10:49 → 4FBP 11:08 → OBSVTOIN 11:09 → 2SICU 02-04 01:51 → 4FBP 02-05 15:58
PROVIDERS: ADMIT Obstetrics & Gynecology; ATTEND Obstetrics & Gynecology
DX: O11.5 Pre-existing hypertension with pre-eclampsia, complicating the puerperium (principal); D62 Acute posthemorrhagic anemia; I16.1 Hypertensive emergency; F31.81 Bipolar II disorder; F60.3 Borderline personality disorder; O99.215 Obesity complicating the puerperium; E66.9 Obesity, unspecified; O99.345 Other mental disorders complicating the puerperium; O99.845 Bariatric surgery status complicating the puerperium; K21.9 Gastro-esophageal reflux disease without esophagitis; O90.81 Anemia of the puerperium; Z11.52 Encounter for screening for COVID-19; Z79.899 Other long term (current) drug therapy; Z79.82 Long term (current) use of aspirin; Z87.891 Personal history of nicotine dependence; F41.9 Anxiety disorder, unspecified; Z91.52 Personal history of nonsuicidal self-harm; Z90.721 Acquired absence of ovaries, unilateral
CPT/HCPCS: 71045; 71046; 74175; 80053; 81001; 82384; 82570; 85025; 86850; 86900; 86901; 86920; 87635; 93306; 96361; 96374; 96375; 99215

== ENCOUNTER 2024-08-06 12:45 | Emergency (ER) | payer MEDICARE, OTHER ==
[2024-08-06 12:57] VITALS: BP 145/85; PULSE 76; RESP 20; TEMP 98.1
--- NOTE | 2024-08-06 13:18 | ED ---
General Adult HPI - General Chief complaint: Abdominal Pain Stated complaint: Pelvic Pain Time Seen by Provider: 08/06/24 12:57 Source: patient, RN notes reviewed Mode of arrival: ambulatory Limitations: no limitations - History of Present Illness Initial comments: 33-year-old female presents emergency room with complaints of right pelvic pain that started yesterday. She states that she was sitting on the couch when the pain started and is intermittent yet persistent described as a tight type sensation that is nonradiating. She denies associated vaginal bleeding, vaginal discharge, urinary or bowel habit changes. Patient states that she had a hi story of a left-sided ovarian torsion where she had to have her ovary removed. She denies fevers, chills, nausea, vomiting. - Related Data Home Medications Medication Instructions Recorded Confirmed Omeprazole [PriLOSEC] 20 mg PO HS 07/03/16 08/06/24 [place] Carbonate [[place] 300 mg PO HS 08/06/24 08/06/24 Carbonate ER] Rosuvastatin [Crestor] 10 mg PO HS 08/06/24 08/06/24 amLODIPine [Norvasc] 2.5 mg PO DAILY 08/06/24 08/06/24 norethindrone-e.estradioL-iron 1 tab PO HS 08/06/24 08/06/24 [[place] Fe 1-20 Tablet] Previous Rx's Medication Instructions Recorded Acyclovir [Zovirax] 800 mg PO HS #14 tab 11/23/16 Allergies Allergy/AdvReac Type Severity Reaction Status Date / Time cat dander Allergy Unknown Verified 08/06/24 14:05 diphenhydramine HCl AdvReac anxiety Verified 08/06/24 14:05 [From Benadryl] environmental Allergy Unknown Uncoded 08/06/24 14:06 Review of Systems ROS Statement: Those systems with pertinent positive or pertinent negative responses have been documented in the HPI. ROS Other: All systems not noted in ROS Statement are negative. Past Medical History Past Medical History: Asthma, GERD/Reflux, Hypertension Additional Past Medical History / Comment(s): Past HTN but not since weight loss, high triglycerides, pancreatitis, ascities, anemia, herpes simplex I. 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 Past Anesthesia/Blood Transfusion Reactions: No Reported Reaction Past Psychological History: Anxiety, Depression Smoking Status: Former smoker Past Alcohol Use History: Occasional Past Drug Use History: Marijuana - Past Family History Father Family Medical History: COPD, Hypertension Additional Family Medical History / Comment(s): Depression. Mother Family Medical History: Hypertension General Exam Limitations: no limitations General appearance: alert, in no apparent distress ENT exam: Present: normal exam, mucous membranes moist Respiratory exam: Present: normal lung sounds bilaterally. Absent: respiratory distress, wheezes, rales, rhonchi, stridor Cardiovascular Exam: Present: regular rate, normal rhythm, normal heart sounds. Absent: systolic murmur, diastolic murmur, rubs, gallop, clicks GI/Abdominal exam: Present: soft, normal bowel sounds. Absent: distended, tenderness, guarding, rebound, rigid Extremities exam: Present: normal inspection, full ROM, normal capillary refill. Absent: tenderness, pedal edema, joint swelling, calf tenderness Back exam: Present: normal inspection. Absent: CVA tenderness (R), CVA tenderness (L) Course Vital Signs 08/06/24 12:54 Temperature 98.1 F Pulse Rate 76 Respiratory 20 Rate Blood Pressure 145/85 O2 Sat by Pulse 99 Oximetry Medical Decision Making - Medical Decision Making Was pt. sent in by a medical professional or institution (, PA, TILE ROOFER, urgent care, hospital, or longterm...) When possible be specific @ -No Did you speak to anyone other than the patient for history (EMS, parent, family, police, friend...)? What history was obtained from this source @ -No Did you review nursing and triage notes (agree or disagree)? Why? @ -I reviewed and agree with nursing and triage notes Were old charts reviewed (outside hosp., previous admission, EMS record, old EKG, old radiological studies, urgent care reports/EKG's, longterm records)? Report findings @ -No old charts were reviewed Differential Diagnosis (chest pain, altered mental status, abdominal pain women, abdominal pain men, vaginal bleeding, weakness, fever, dyspnea, syncope, headache, dizziness, GI bleed, back pain, seizure, CVA, palpatations, mental health, musculoskeletal)? @ -Differential Abdominal Pain Women: Appendicitis, Cholecystitis, diverticulosis, ischemic bowel, pancreatitis, hepatitis, UTI, gastroenteritis, AAA, incarcerated hernia, bowel obstruction, constipation, inflammatory bowel, hepatitis, peptic ulcer disease, splenic infarction, perforated viscus, vulvitis, ovarian torsion, PID, kidney stone, jameel centa abruption, this is not meant to be an all-inclusive list EKG interpreted by me (3pts min.). @ -None X-rays interpreted by me (1pt min.). @ -None done CT interpreted by me (1pt min.). @ -None done U/S interpreted by me (1pt. min.). @ -Transvaginal ultrasound completed reveals no evidence for acute process with appropriate arterial and venous waveforms of the right ovary, left ovary is surgically absent. What testing was considered but not performed or refused? (CT, X-rays, U/S, labs)? Why? @ -None What meds were considered but not given or refused? Why? @ -None Did you discuss the management of the patient with other professionals (professionals i.e. , PA, TILE ROOFER, lab, RT, psych nurse, social science manager, director of community center, teacher, safety officer, briefcase sewer)? Give summary @ -No Was smoking cessation discussed for >3mins.? @ -No Was critical care preformed (if so, how long)? @ -No Were there social determinants of health that impacted care today? How? (Homelessness, low income, unemployed, alcoholism, drug addiction, transportation, low edu. Level, literacy, decrease access to med. care, long term, rehab)? @ -No Was there de-escalation of care discussed even if they declined (Discuss DNR or withdrawal of care, Hospice)? DNR status @ -No What co-morbidities impacted this encounter? (DM, HTN, Smoking, COPD, CAD, Cancer, CVA, ARF, Chemo, Hep., AIDS, mental health diagnosis, sleep apnea, morbid obesity)? @ -None Was patient admitted / discharged? Hospital course, mention meds given and route, prescriptions, significant lab abnormalities, going to OR and other pertinent info. @ -Discharge. 33 year old female presenting with right pelvic pain. Overall patient is well-appearing and abdominal examination is unremarkable. Patient states that palpation the abdomen does not elicit tenderness she states that "the pain feels internal ". Patient was Is provided with Toradol and fluids for pain relief and hydration. Laboratory testing including CBC, CMP, urinalysis unremarkable. hCG is negative. Ultrasound reveals good blood flow to right ovary with no evidence torsion. Patient stable for discharge and informed of today's results. Recommend follow-up with OB. Return parameters discussed. Case discussed with Dr. Hood Undiagnosed new problem with uncertain prognosis? @ -No Drug Therapy requiring intensive monitoring for toxicity (Heparin, Nitro, Insulin, Cardizem)? @ -No Were any procedures done? @ -No Diagnosis/symptom? @ -Pelvic pain, unspecified Acute, or Chronic, or Acute on Chronic? @ -Acute Uncomplicated (without systemic symptoms) or Complicated (systemic symptoms)? @ -Uncomplicated Side effects of treatment? @ -No Exacerbation, Progression, or Severe Exacerbation? @ -No Poses a threat to life or bodily function? How? (Chest pain, [place], GA, pneumonia, PE, COPD, DKA, ARF, appy, cholecystitis, CVA, Diverticulitis, Homicidal, Suicidal, threat to staff... and all critical care pts) @ -No - Lab Data Result diagrams: 08/06/24 13:17 08/06/24 13:17 Lab Results 08/06/24 08/06/24 08/06/24 Range/Units 13:17 13:17 13:17 WBC 5.15 (4.50-10.00) 10*3/uL RBC 4.12 (4.10-5.20) 10*6/uL Hgb 13.2 (12.0-15.0) g/dL Hct 37.7 (37.2-46.3) % MCV 91.5 (80.0-97.0) fL MCH 32.0 (27.0-32.0) pg MCHC 35.0 (32.0-37.0) g/dL Plt Count 252 (140-440) 10*3/uL MPV 9.8 (9.5-12.2) fL Immature Gran % (Auto) 0.2 % Neutrophils % 60.2 % Lymphocytes % 29.9 % Monocytes % 5.4 % Eosinophils % 3.1 % Basophils % 1.2 % Immature Gran # 0.01 (0.00-0.04) 10*3/uL Neutrophils # 3.10 (1.80-7.70) 10*3/uL Lymphocytes # 1.54 (0.90-5.00) 10*3/uL Monocytes # 0.28 (0.20-1.00) 10*3/uL Eosinophils # 0.16 (0.04-0.35) 10*3/uL Basophils # 0.06 (0.00-0.10) 10*3/uL Sodium (137-145) mmol/L Potassium (3.5-5.1) mmol/L Chloride (98-107) mmol/L Carbon Dioxide (22-30) mmol/L Anion Gap mmol/L BUN (7-17) mg/dL Creatinine (0.52-1.04) mg/dL Est GFR (CKD-EPI)AfAm (>60 ml/min/1.73 sqM) Est GFR (CKD-EPI)NonAf (>60 ml/min/1.73 sqM) Glucose (74-99) mg/dL Calcium (8.4-10.2) mg/dL Total Bilirubin (0.2-1.3) mg/dL AST (14-36) U/L ALT (4-34) U/L Alkaline Phosphatase (38-126) U/L Total Protein (6.3-8.2) g/dL Albumin (3.5-5.0) g/dL Urine Color Colorless Urine Appearance Clear (Clear) Urine pH 6.0 (5.0-8.0) Ur Specific [place] 1.009 (1.001-1.035) Urine Protein Negative (Negative) Urine Glucose (UA) Negative (Negative) Urine Ketones Negative (Negative) Urine Blood Negative (Negative) Urine Nitrite Negative (Negative) Urine Bilirubin Negative (Negative) Urine Urobilinogen <2.0 (<2.0) mg/dL Ur Leukocyte Esterase Negative (Negative) Urine HCG, Qual Not Detected (Not Detectd) 08/06/24 Range/Units 13:17 WBC (4.50-10.00) 10*3/uL RBC (4.10-5.20) 10*6/uL Hgb (12.0-15.0) g/dL Hct (37.2-46.3) % MCV (80.0-97.0) fL MCH (27.0-32.0) pg MCHC (32.0-37.0) g/dL Plt Count (140-440) 10*3/uL MPV (9.5-12.2) fL Immature Gran % (Auto) % Neutrophils % % Lymphocytes % % Monocytes % % Eosinophils % % Basophils % % Immature Gran # (0.00-0.04) 10*3/uL Neutrophils # (1.80-7.70) 10*3/uL Lymphocytes # (0.90-5.00) 10*3/uL Monocytes # (0.20-1.00) 10*3/uL Eosinophils # (0.04-0.35) 10*3/uL Basophils # (0.00-0.10) 10*3/uL Sodium 135 L (137-145) mmol/L Potassium 4.6 (3.5-5.1) mmol/L Chloride 103 (98-107) mmol/L Carbon Dioxide 23 (22-30) mmol/L Anion Gap 9 mmol/L BUN 13 (7-17) mg/dL Creatinine 0.79 (0.52-1.04) mg/dL Est GFR (CKD-EPI)AfAm >90 (>60 ml/min/1.73 sqM) Est GFR (CKD-EPI)NonAf >90 (>60 ml/min/1.73 sqM) Glucose 88 (74-99) mg/dL Calcium 9.6 (8.4-10.2) mg/dL Total Bilirubin 0.9 (0.2-1.3) mg/dL AST 26 (14-36) U/L ALT 12 (4-34) U/L Alkaline Phosphatase 35 L (38-126) U/L Total Protein 7.2 (6.3-8.2) g/dL Albumin 4.2 (3.5-5.0) g/dL Urine Color Urine Appearance (Clear) Urine pH (5.0-8.0) Ur Specific [place] (1.001-1.035) Urine Protein (Negative) Urine Glucose (UA) (Negative) Urine Ketones (Negative) Urine Blood (Negative) Urine Nitrite (Negative) Urine Bilirubin (Negative) Urine Urobilinogen (<2.0) mg/dL Ur Leukocyte Esterase (Negative) Urine HCG, Qual (Not Detectd) Disposition Clinical Impression: Pelvic pain Disposition: HOME SELF-CARE Condition: Good Instructions (If sedation given, give patient instructions): Pelvic Pain in Women (ED) Additional Instructions: Please return to the Emergency Department if symptoms worsen or any other concerns. Is patient prescribed a controlled substance at d/c from ED?: No Referrals: Manav Napoles III, MD [Primary Care Provider] - 1-2 days Time of Disposition: 15:37
[2024-08-06] MEDS: SODIUM CHLORIDE 0.9% 1,000 ML IV ONE (13:39)
[2024-08-06 13:40] LABS: Basophils # (A) 0.06 10*3/uL (0.00-0.10); Basophils % (A) 1.2 %; Eosinophils # (A) 0.16 10*3/uL (0.04-0.35); Eosinophils % (A) 3.1 %; HCT 37.7 % (37.2-46.3); HGB 13.2 g/dL (12.0-15.0); Lymphocytes # (A) 1.54 10*3/uL (0.90-5.00); Lymphocytes % (A) 29.9 %; MCV 91.5 fL (80.0-97.0); Mean Platelet Volume 9.8 fL (9.5-12.2); Monocytes # (A) 0.28 10*3/uL (0.20-1.00); Monocytes % (A) 5.4 %; Neutrophils % (A) 60.2 %; Platelet Count 252 10*3/uL (140-440); RBC 4.12 10*6/uL (4.10-5.20); RDW 11.6 % (11.5-14.5); WBC 5.15 10*3/uL (4.50-10.00)
[2024-08-06] MEDS: KETOROLAC 15 MG/ML 1 ML VIAL IVP STA (13:41)
[2024-08-06 13:46] LABS: Appearance,Urine Clear (Clear); Bilirubin,Urine Negative (Negative); Blood,Urine Negative (Negative); Color,Urine Colorless; Glucose,Urine (UA) Negative (Negative); Ketones,Urine Negative (Negative); Leukocyte Esterase,Urine Negative (Negative); Nitrite,Urine Negative (Negative); Protein,Urine Negative (Negative); Specific Gravity,Urine 1.009 (1.001-1.035); Urobilinogen,Urine <2.0 mg/dL (<2.0)
[2024-08-06 13:53] LABS: ALT 12 U/L (4-34); African American GFR (CKD) >90 (>60 ml/min/1.73 sqM); Anion Gap 9 mmol/L; Blood Urea Nitrogen 13 mg/dL (7-17); Calcium 9.6 mg/dL (8.4-10.2); Carbon Dioxide 23 mmol/L (22-30); Chloride 103 mmol/L (98-107); Glucose 88 mg/dL (74-99); Non-African American GFR(CKD) >90 (>60 ml/min/1.73 sqM); Sodium 135 mmol/L (137-145)
[2024-08-06 13:56] LABS: AST 26 U/L (14-36); Albumin 4.2 g/dL (3.5-5.0); Alkaline Phosphatase 35 U/L (38-126); Potassium 4.6 mmol/L (3.5-5.1); Total Bilirubin 0.9 mg/dL (0.2-1.3); Total Protein 7.2 g/dL (6.3-8.2)
--- NOTE | 2024-08-06 15:24 | US ---
EXAMINATION TYPE: US transvaginal DATE OF EXAM: 08/06/2024 COMPARISON: US 08/28/2021 CLINICAL INDICATION: Female, 33 years old with history of R pelvic pain, hx L ovarian torsion; Pelvic pain, left ovary removed. TECHNIQUE: Transvaginal (TV). Transvaginal grayscale sonographic images of the pelvis were acquired. Doppler imaging: Color Doppler Images were obtained. Spectral doppler images were obtained. FINDINGS: Date of LMP: About 1 month ago, EXAM MEASUREMENTS: Uterus: 9.0 x 4.5 x 5.3 cm Endometrial Stripe: 0.4 cm Right Ovary: 3.7 x 3.3 x 3.0 cm Left Ovary: Surgically absent 1. Uterus: Anteverted wnl 2. Endometrium: wnl 3. Right Ovary: Anechoic area measuring 2.8 x 2.4 x 2.6 cm compatible dominant follicle. 4. Left Ovary: Surgically absent Spectral, color and waveform doppler imaging shows good arterial and venous flow within the right o vary; there is no evidence for ovarian torsion. 5. Bilateral Adnexa: wnl 6. Posterior cul-de-sac: No free fluid IMPRESSION: 1. No evidence for acute process. 2. Appropriate arterial and venous spectral waveforms to the right ovary. 3. Surgically absent left ovary. [facility], , 08/06/2024 3:22 PM
== END 2024-08-06 16:04 | disposition home or self-care (01) ==
LOC: EC 12:45
DX: R10.2 Pelvic and perineal pain (principal); Z87.891 Personal history of nicotine dependence; Z91.09 Other allergy status, other than to drugs and biological substances; Z88.8 Allergy status to other drugs, medicaments and biological substances
CPT/HCPCS: 36415; 80053; 85025; 81003; 81025; 93976; 76830; 99284; 96374; 96361; J1885